=== PATIENT | male | born 1940 | race Caucasian/White ===

== ENCOUNTER 2019-06-16 10:53 | Observation (INO) ==
--- NOTE | 2019-06-02 13:47 | PAT Medication Instructions ---
Medication Instructions Date of Service June 02, 2019 Home Medications ascorbic acid (vitamin C) 500 mg PO QAM calcium carbonate-vitamin D3 [Calcium 600 + D(3)] 1 cap PO QPM cholecalciferol (vitamin D3) [Vitamin D3] 1,000 unit PO QAM fluocinonide 1 applic TOPICAL BID PRN gabapentin 100 - 300 mg PO TID glucosam sol [id number]-qvgdebmab-[id number]-Mn 1 cap PO BID multivitamin 1 tab PO QPM naproxen sodium [Aleve] 440 mg PO BID PRN phenobarbital 60 mg PO BID pravastatin [Pravachol] 20 mg PO QPM prednisone 5 mg PO QAM tiotropium bromide [Spiriva with HandiHaler] 1 cap INHALATION QAM tramadol [Ultram] 50 mg PO Q6H PRN valacyclovir 1,000 mg PO UD PRN vitamin E 400 unit PO QAM Continue as directed valacyclovir 1,000 mg PO UD PRN (if needed) prednisone 5 mg PO QAM STOP taking 2 weeks before surgery (or as soon as possible if surgery is within 2 weeks) glucosam sol keh-rvgvzywue-P-Mn 1 cap PO BID vitamin E 400 unit PO QAM STOP taking 24 hours before surgery fluocinonide 1 applic TOPICAL BID PRN DO NOT take the morning of surgery ascorbic acid (vitamin C) 500 mg PO QAM cholecalciferol (vitamin D3) [Vitamin D3] 1,000 unit PO QAM Take morning of surgery With a small sip of water, OTHERWISE NOTHING TO EAT OR DRINK AFTER MIDNIGHT: gabapentin 100 - 300 mg PO TID phenobarbital 60 mg PO BID tiotropium bromide [Spiriva with HandiHaler] 1 cap INHALATION QAM tramadol [Ultram] 50 mg PO Q6H PRN (okay to take up to 4 hours prior to surgery if needed) Take evening before surgery gabapentin 100 - 300 mg PO TID phenobarbital 60 mg PO BID pravastatin [Pravachol] 20 mg PO QPM tramadol [Ultram] 50 mg PO Q6H PRN (if needed) multivitamin 1 tab PO QPM Other Notes If you have any questions please call us at [phone] or [phone] or [phone] or [phone]
--- NOTE | 2019-06-02 14:27 | Anesthesiology Consultation ---
Date of Service June 02, 2019 Assessment & Plan (1) Encounter for pre-operative examination: Chart Review Chart Review: Acceptable Risk for Surgery and Patient seen in Pre Admission Testing Teaching & Discussion Instructed NPO after midnight before surgery, except medications with 15 cc of water. Medication instructions provided according to the PAT guidelines. History Surgery Operation Date: 06/16/19 12:25 Proposed Procedures p L4-L5 Laminectomy - Ney Walsh DO Height/Weight Height: 6 ft Weight: 84.9 kg Allergies Allergy/AdvReac Type Severity Reaction Status Date / Time lamotrigine Allergy Unknown pruritus, Verified 06/02/19 13:48 rash oxycodone AdvReac Unknown "strange" Verified 06/02/19 13:48 feeling Medications Home Medications Medication Instructions Recorded Confirmed Last Taken ascorbic acid (vitamin C) 500 mg PO QAM 05/31/19 05/31/19 Unknown calcium carbonate-vitamin D3 1 cap PO QPM 05/31/19 05/31/19 Unknown [Calcium 600 + D(3)] cholecalciferol (vitamin D3) 1,000 unit PO QAM 05/31/19 05/31/19 Unknown [Vitamin D3] fluocinonide 1 applic TOPICAL BID PRN 05/31/19 05/31/19 Unknown gabapentin 100 - 300 mg PO TID 05/31/19 05/31/19 Unknown glucosam sol dzr-gsbicpwsm-H-Mn 1 cap PO BID 05/31/19 05/31/19 Unknown multivitamin 1 tab PO QPM 05/31/19 05/31/19 Unknown naproxen sodium [Aleve] 440 mg PO BID PRN 05/31/19 05/31/19 Unknown phenobarbital 60 mg PO BID 05/31/19 05/31/19 Unknown pravastatin [Pravachol] 20 mg PO QPM 05/31/19 05/31/19 Unknown prednisone 5 mg PO QAM 05/31/19 05/31/19 Unknown tiotropium bromide [Spiriva with 1 cap INHALATION QAM 05/31/19 05/31/19 Unknown HandiHaler] tramadol [Ultram] 50 mg PO Q6H PRN 05/31/19 05/31/19 Unknown valacyclovir 1,000 mg PO UD PRN 05/31/19 05/31/19 Unknown vitamin E 400 unit PO QAM 05/31/19 05/31/19 Unknown Past Medical History Medical History Arthritis BPH (benign prostatic hyperplasia) HX Cardiac murmur 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 Seizure HX "DISORIENTATION TYPE"-SINGLE EPISODE 7-8 YRS AGO-ON DAILY PHENOBARBITOL Sleep apnea CPAP Spinal stenosis RIGHT LEG PAIN Exercise / Class Metabolic Activity II 4-5 Yardwork/Stairs/Walk up hill (DOES 1 FOS DAILY, NO CP OR SOB) Past Family History Family History Mother Family hx of colon cancer Past Surgical History Surgical History History of colonoscopy History of eye surgery TEAR DUCT SURGERY RIGHT History of hand surgery LEFT LIGAMENT Hx of transurethral resection of prostate Past Anesthesia History No Hx of Anesthesia Complications and No Family Hx of Anesthesia Complications S/P TURP 2013 [facility] [place]: MAC 4, ETT 7.5, GRADE VIEW III. SMOOTH IV INDUCTION/ATRAUMATIC INTUBATION WITH SMALL ABRASION TO L UPPER LIP. History of PONV No Hx of PONV and Hx of Motion Sickness Social History Smoking Status: Former smoker Do You Dip or Chew Tobacco: No Smoking End Date: QUIT 30 YRS AGO Hx Alcohol Use: Yes Alcohol type: beer, wine and hard liquor alcohol intake frequency: a few times a week Hx Substance Use: No Review of Systems Pt denies any recent chest pain, shortness of breath, palpitations, cough, fever or URI. +right leg pain Physical Exam Vital Signs BP: 152/69 (pt reports usually 120's systolic, is in some pain today) P: 70bpm SPO2: 94% RA T: 98.4 F R: 16 ENMT Mouth: no dental restorations, no chipped teeth and no loose teeth Thyromental Distance: > or= 3.5 Finger Breadths (3.5) Mallampati Class: I Neck normal visual inspection; neck extension not limited Respiratory normal respiratory effort Auscultation: lungs clear to auscultation bilaterally and + bronchovesicular breath sounds (B/L) Cardiovascular Rate/Rhythm: regular rate and regular rhythm Heart Sounds: no murmur Vessels: no carotid bruit Extremities: no edema Testing Laboratory Results 06/02/19 15:13 06/02/19 15:13 PT 10.2 Seconds (9.0-12.0) 06/02/19 15:13 INR 1.0 (0.9-1.1) 06/02/19 15:13 APTT 28.8 Seconds (21.0-31.0) 06/02/19 15:13 Electrocardiogram Date: 06/02/19 Findings: + NSR @ (64) Echocardiogram Date: 03/10/19 EF: 60-64% Qualitative LV ejection fraction is normal. Grade 1 diastolic dysfunction of left ventricle. Mild aortic valve sclerosis is present with mild to moderate aortic regurgitation. Compared to prior study of 03/01/2018, there is no significant change.
[2019-06-02 16:25] LABS: Basophils # (auto) 0.02 K/uL (0-0.2); Basophils % (auto) 0.3 %; Eosinophils # (auto) 0.23 K/uL (0-0.5); Eosinophils % (auto) 2.9 %; Hematocrit (blood only) 41.7 % (42-52); Hemoglobin 14.2 g/dL (14.0-18.0); Immature Granulocytes # (auto) 0.03 K/uL (0.00-0.02); Immature Granulocytes % (auto) 0.4 %; Lymphocytes # (auto) 1.84 K/uL (1.2-3.4); Lymphocytes % (auto) 23.2 %; Mean Corpuscular Hgb Conc 34.1 g/dL (32-36); Mean Corpuscular Volume 86.7 fL (80-100); Mean Platelet Volume 9.1 fL (7.4-10.4); Monocytes % (auto) 8.8 %; Neutrophils % (auto) 64.4 %; Platelet Count 280 K/uL (130-400); RDW Coefficient of Variation 13.8 % (11.5-14.5); RDW Standard Deviation 43.7 fL (36.4-46.3); Red Blood Count 4.81 M/uL (4.7-6.1); White Blood Count 7.92 K/uL (4.8-10.8)
[2019-06-02 16:36] LABS: Partial Thromboplastin Ratio 1.1; Partial Thromboplastin Time 28.8 Seconds (21.0-31.0); Prothrombin Time 10.2 Seconds (9.0-12.0)
[2019-06-02 17:48] LABS: BUN Creatinine Ratio 18.3 (10-20); Calcium 8.4 mg/dl (8.5-10.1); Creatinine Clr Calc Pharmacy 70.3 ml/min; Est GFR (African American) 90.7; Est GFR (Non-African American) 78.3; Potassium 4.4 mmol/L (3.5-5.1)
--- NOTE | 2019-06-15 14:17 | History and Physical Report ---
DATE OF ADMISSION: 06/16/2019 CHIEF COMPLAINT: Lower extremity difficulty, weakness and legs giving out. He has a disc herniation at L4-L5, it is in lateral recess. It knocks off the 4th and 5th nerve root on right hand side. Ongoing now for 1 year, worsening over time. He is somewhat ambulatory impaired. PAST MEDICAL HISTORY: Significant for high cholesterol, asthma, seizure, polio. PAST SURGICAL HISTORY: Negative. ALLERGIES: Negative. SOCIAL HISTORY: Nonsmoker, non-ETOH user. REVIEW OF SYSTEMS: Denies any fevers, sweats, chills. Ears, nose, and throat negative. No chest pain, palpitations. No asthma, wheezing, shortness of breath. No nausea or vomiting. He admits to numbness, tingling, associated weakness. MEDICATIONS: Lisinopril, [place], Fosamax, Deltasone, Pravachol, Valtrex, glucosamine, ProAir, multiple vitamins. OBJECTIVE: GENERAL: He is alert, oriented. VITAL SIGNS: Blood pressure 149/62, pulse regular at 80 beats per minute. He is 6 feet, 180 pounds. HEENT: Normocephalic. Pupils react to light and accommodation. CARDIAC: Normal S1, S2. No murmurs, clicks, gallops. LUNGS: Clear. ABDOMEN: Soft, nontender. Neurological examination demonstrates reflex changes in knee, weakness of quad strength, loss of sensation and muscle atrophy. IMPRESSION: Disc herniation with neurological deficit, progressive L4-L5. PLAN: Includes a laminectomy L4-L5 lumbar spine.
[~2019-06-16 10:53] MED LIST: CEFAZOLIN 2000MG 2,000 MG/15 ML SYR IV SCH; LR 15ML/HR IV SCH; SODIUM CHLORIDE 0.9% 1,000 ML IV SCH
[2019-06-16] MEDS ORDERED: ONDANSETRON INJ 2 MG/ML 2 ML VIAL ONE (12:51)
[2019-06-16] MEDS ORDERED: PROPOFOL IV EMULSION 10 MG/ML 20 ML VIAL IV ONE (12:51)
[2019-06-16] MEDS ORDERED: LIDOCAINE HCL 2% 2 ML VIAL/AMP(20MG/ML) INFIL ONE ×2 (12:51→15:22)
[2019-06-16] MEDS ORDERED: fentaNYL citrate 100 MCG/2 ML VIAL ONE (12:52)
[2019-06-16] MEDS ORDERED: VANCOMYCIN HCL 1000MG/20ML VIAL ONE (13:53)
[2019-06-16] MEDS ORDERED: BACITRACIN INJ 50,000 UNIT VIAL ONE (13:54)
[2019-06-16] MEDS ORDERED: BUPIVACAINE/EPINEPHRINE 0.5% MPF 1:200,000 30 ML VIAL ONE (13:54)
[2019-06-16] MEDS ORDERED: THROMBIN FOR SOLN 20000 UNIT KIT ONE (13:54)
[2019-06-16] MEDS ORDERED: GELATIN SPONGE SZ 100 ONE (13:54)
--- NOTE | 2019-06-16 14:00 | History & Physical Bridge Note ---
Date of Service June 16, 2019 History & Physical Bridge Note I have examined the patient, reviewed the History & Physical and in the interval since the performance of the History & Physical I have noted the following changes of clinical significance: no changes noted
[2019-06-16] MEDS ORDERED: ePHEDrine sulfate 50 MG/ML SYR ONE (14:58)
[2019-06-16] MEDS ORDERED: ePHEDrine sulfate 50 MG/ML AMP IV PRN (15:07)
[2019-06-16] MEDS ORDERED: FLUMAZENIL 0.1 MG/1 ML 10 ML VIAL IV PRN (15:07)
[2019-06-16] MEDS ORDERED: LABETALOL HCL IV 5 MG/ML 20ML IV PRN (15:07)
[2019-06-16] MEDS ORDERED: NALOXONE HCL 0.4 MG/1 ML VIAL/CARP IV PRN (15:07)
[2019-06-16] MEDS ORDERED: PROMETHAZINE HCL 12.5 MG in SODIUM CHLORIDE 0.9% 50 ML IV PRN (15:07)
[2019-06-16] MEDS ORDERED: ATROPINE SULFATE 0.1 MG/ML 10ML SYR IV PRN (15:07)
[2019-06-16] MEDS ORDERED: ONDANSETRON INJ 2 MG/ML 2 ML VIAL IV PRN ×2 (15:07→18:17)
[2019-06-16] MEDS ORDERED: ROCURONIUM BROMIDE 10 MG/ML 5 ML VIAL ONE (15:22)
[2019-06-16] MEDS ORDERED: GLYCOPYRROLATE 0.2 MG/ML VIAL ONE (15:22)
[2019-06-16] MEDS ORDERED: NEOSTIGMINE METHYLSULFATE 5 MG/5 ML SYR ONE (15:22)
--- NOTE | 2019-06-16 16:07 | Fluoroscopy Report ---
FL spine 1V any level CLINICAL HISTORY: 78 years-old Male presenting with L4-L5 LAMI. TECHNIQUE: 2 fluoroscopic image(s) recorded as part of an intraoperative procedure. COMPARISON: MR from 04/27/2019. FINDINGS/IMPRESSION: Instrumentation and surgical sponges project over the lower lumbar region. Surgical instrumentation i ntroduced into and intervertebral disc space. Please see surgical report for further details. Fluoroscopy dosage (mGy): 8.02. Fluoroscopy time: 12.2 seconds. Number or time of high level fluoroscopy (HLF), digital spot, or digital subtraction images: 0. Electronically signed by: Roberto Goodrich M.D. 06/16/2019 4:06 PM
--- NOTE | 2019-06-16 16:19 | Post Operative Brief Note ---
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
[2019-06-16] MEDS: HYDROmorphone INJ 1 MG/ML SYRINGE IV PRN ×8 (16:32→17:15)
--- NOTE | 2019-06-16 17:25 | Anesthesiology Progress Note ---
Date of Service June 16, 2019 Anesthesia Post Procedure Vital Signs Vital Signs: Temp Pulse Pulse Resp BP Pulse Ox 06/16/19 17:20 67 21 132/58 L 99 06/16/19 17:10 74 15 128/55 L 98 06/16/19 17:00 76 23 139/59 L 96 06/16/19 16:50 81 16 127/59 L 96 06/16/19 16:40 97 H 17 122/74 94 06/16/19 16:30 108 H 17 138/63 94 06/16/19 16:23 97.2 F L 116 H 17 142/62 H 97 06/16/19 11:44 98.6 F 69 18 151/87 H 96 Pain Intensity Medial Back: Pain Intensity: 6 Transfer of Care Handoff Completed per policy Notes Mental Status: alert / awake / arousable and participated in evaluation Patient Amnestic to Procedure: Yes Nausea / Vomiting: adequately controlled Pain: adequately controlled Airway Patency, RR, SpO2: stable & adequate BP & HR: stable & adequate Hydration State: stable & adequate Anesthetic Complications: no major complications apparent and Pt Satisfied with anesthetic care
[2019-06-16] MEDS ORDERED: HYDROmorphone INJ 0.5 MG/0.5 ML SYR IV PRN (18:17)
[2019-06-16] MEDS ORDERED: HYDROmorphone INJ 1 MG/ML SYRINGE IV PRN (18:17)
[2019-06-16] MEDS ORDERED: VALACYCLOVIR HCL 500 MG TABLET PO PRN (18:17)
[2019-06-16] MEDS ORDERED: MAGNESIUM HYDROXIDE SUSP 30 ML UDC PO PRN (18:17)
[2019-06-16] MEDS ORDERED: OXYCODONE HCL IR 5 MG TAB (IMMEDIATE RELEASE) PO PRN (18:17)
[2019-06-16] MEDS ORDERED: FLUOCINONIDE 0.05% CR 15 GM TUBE EXT PRN (18:17)
[2019-06-16] MEDS ORDERED: GABAPENTIN 100 MG CAP PO SCH (21:00)
[2019-06-16] MEDS: CEFAZOLIN 2000MG 2,000 MG/15 ML SYR IV SCH (21:09)
[2019-06-16] MEDS: PHENobarbital 15 MG TAB PO SCH (21:10)
[2019-06-16] MEDS: DOCUSATE SODIUM 100 MG CAP PO SCH (21:10)
[2019-06-16] MEDS: GABAPENTIN 300 MG CAP PO SCH (21:10)
[2019-06-17] MEDS: SODIUM CHLORIDE 0.9% 1000ML 1,000 ML IV SCH ×2 (00:33→05:32)
[2019-06-17] MEDS: ACETAMINOPHEN 1,000 MG/100 ML VIAL IV PRN ×2 (00:35→21:47)
[2019-06-17] MEDS: OXYCODONE HCL IR 5 MG TAB (IMMEDIATE RELEASE) PO PRN ×4 (03:30→20:20)
[2019-06-17] MEDS: CEFAZOLIN 2000MG 2,000 MG/15 ML SYR IV SCH ×2 (05:32→13:46)
--- NOTE | 2019-06-17 07:59 | Operative Report ---
DATE OF OPERATION: 06/16/2019 PREOPERATIVE DIAGNOSIS: Far lateral disc herniation, L4-L5 lumbar spine. POSTOPERATIVE DIAGNOSIS: Far lateral disc herniation, L4-L5 lumbar spine. PROCEDURE: Include a laminectomy, right-sided L4-L5, foraminotomy of L5 and L4 nerve roots along with a discectomy at L4-L5 and retrieval of free fragment L4-L5. SURGEON: Ney aWlsh D.O. MOCK UP MAKER: Josh Limon PA-C ANESTHESIA: General. COMPLICATIONS: Zero. BLOOD LOSS: 100. DESCRIPTION OF PROCEDURE: The patient was seen and identified in the preoperative holding area. A formal bridge note provided as well. Brought back to the operating room. General intubated and anesthetic provided to the patient. Placed prone, scrubbed, prepped and draped sterile. I made a skin incision, marked this with C-arm guidance. We cut down on the L4-L5 interval. We did an upgoing laminectomy at L4 down at L5. I was very careful. Meticulous dissection was difficult. There was significant amount of stenosis. I wanted to be as less disruptive as I could and accomplished the task. I meticulously dissected and completed the foraminotomy L5. I was eventually able to find the L4-L5 disc. I retracted the dura medially. I was able to incise the disc with #15 scalpel blade, used pituitary to do a discectomy, in addition localized the area. I then went up and worked underneath the nerve root at L4-L5, so will be the 4th nerve root exited. I worked hard underneath and above it to try to get free from compression. I was able to find a small glimmer disc material and I was able to retrieve this and a moderate disc protrusion was removed. I felt it was compatible and consistent with the MRI findings. I accentuated the foraminotomy of the nerve root and at the L5 nerve root. I felt both were free. There was no significant pressure that I could palpate or visualize. We began our closure. We irrigated thoroughly, closed fascia over Gelfoam and over vancomycin powder and a Hemovac drain. Then, 2-0 Vicryl and 3-0 nylon on the skin. The drain was activated. Dressing applied. The patient returned safely to recovery room in satisfactory and stable. No apparent intraoperative complications. Sponge and needle count correct and no implants needed. I attest to the content of the Intraoperative Record and any orders documented therein. Any exception s are noted below.
--- NOTE | 2019-06-17 08:14 | Anesthesiology Progress Note ---
Date of Service June 17, 2019 Anesthesia Post Procedure Vital Signs Vital Signs: Temp Pulse Pulse Resp BP Pulse Ox 06/17/19 07:36 36.7 C 73 16 114/55 L 94 06/17/19 03:48 36.5 C 66 18 120/58 L 97 06/16/19 23:36 36.5 C 70 18 109/55 L 95 06/16/19 20:51 36.3 C L 78 16 108/57 L 99 06/16/19 19:58 36.4 C L 71 16 121/65 96 06/16/19 18:55 36.5 C 77 16 118/62 97 06/16/19 18:51 36.5 C 68 98 H 121/64 97 06/16/19 18:26 36.4 C L 67 16 118/63 97 06/16/19 17:50 36.4 C L 67 16 127/56 L 99 06/16/19 17:35 36.2 C L 69 18 123/55 L 99 06/16/19 17:20 67 21 132/58 L 99 06/16/19 17:10 74 15 128/55 L 98 06/16/19 17:00 76 23 139/59 L 96 06/16/19 16:50 81 16 127/59 L 96 06/16/19 16:40 97 H 17 122/74 94 06/16/19 16:30 108 H 17 138/63 94 06/16/19 16:23 36.2 C L 116 H 17 142/62 H 97 06/16/19 11:44 37 C 69 18 151/87 H 96 Pain Intensity Medial Back: Pain Intensity: 4 Notes Mental Status: alert / awake / arousable Patient Amnestic to Procedure: Yes Nausea / Vomiting: adequately controlled Pain: adequately controlled Airway Patency, RR, SpO2: stable & adequate BP & HR: stable & adequate Hydration State: stable & adequate Anesthetic Complications: no major complications apparent and Pt Satisfied with anesthetic care
[2019-06-17] MEDS: predniSONE 5 MG TAB PO SCH (09:15)
[2019-06-17] MEDS: GABAPENTIN 100 MG CAP PO SCH (09:15)
[2019-06-17] MEDS: PHENobarbital 15 MG TAB PO SCH ×2 (09:16→20:21)
[2019-06-17] MEDS: TIOTROPIUM BROMIDE 5 PUFF/90 MCG INH INH SCH (09:17)
[2019-06-17] MEDS: DOCUSATE SODIUM 100 MG CAP PO SCH ×2 (09:19→20:21)
[2019-06-17] MEDS ORDERED: GABAPENTIN 100 MG CAP PO SCH (16:00)
[2019-06-17] MEDS: GABAPENTIN 300 MG CAP PO SCH (20:21)
[2019-06-17] MEDS ORDERED: PRAVASTATIN SOD 20 MG TAB PO SCH (21:00)
[2019-06-18] MEDS: OXYCODONE HCL IR 5 MG TAB (IMMEDIATE RELEASE) PO PRN ×3 (01:51→10:23)
[2019-06-18] MEDS ORDERED: BISACODYL 5 MG TABEC PO PRN (06:00)
[2019-06-18] MEDS: PHENobarbital 15 MG TAB PO SCH (09:02)
[2019-06-18] MEDS: GABAPENTIN 100 MG CAP PO SCH (09:02)
[2019-06-18] MEDS: DOCUSATE SODIUM 100 MG CAP PO SCH (09:02)
[2019-06-18] MEDS: TIOTROPIUM BROMIDE 5 PUFF/90 MCG INH INH SCH (09:03)
[2019-06-18] MEDS: predniSONE 5 MG TAB PO SCH (09:03)
--- NOTE | 2019-06-18 23:16 | Discharge Summary ---
HOSPITAL COURSE: He is alert and oriented, moderate complaints of pain. Pain free at rest. Alert, oriented, no chest pain, shortness of breath. He is now out about 40 hours from lumbar spine surgery, laminectomy and discectomy for far lateral disc herniation, fairly rigorous dissection. He will be discharged to rehab facility today. His medication is in chart. He will continue all his meds. His dressing should be changed about every 72 hours. His sutures will be removed in my office in about 12 days. Careful with bending, stooping, lifting, walk with a walker, be careful with walking, does not need to overdo it and again, we will see him back in the office in about 12 days.
== END 2019-06-18 11:02 ==
LOC: 3E 10:53 → ASU 10:53
DX: J45.909 Unspecified asthma, uncomplicated; M51.26 Other intervertebral disc displacement, lumbar region; J44.9 Chronic obstructive pulmonary disease, unspecified; E78.5 Hyperlipidemia, unspecified; N40.0 Benign prostatic hyperplasia without lower urinary tract symptoms; G47.33 Obstructive sleep apnea (adult) (pediatric)

== ENCOUNTER 2022-06-22 21:06 | Observation (INO) ==
[2022-06-22] MEDS ORDERED: ALBUT/IPRATROP 3MG/0.5MG NEB 3 ML VIAL NEB ONE (21:40)
--- NOTE | 2022-06-22 21:45 | Emergency Department Note ---
Impression & Plan COPD exacerbation, Breath shortness ED Provider Note NAME: ANDREA ARCHULETA AGE: 82 SEX: M : 1940 ARRIVES VIA: Walk-In INFORMANT: Patient ED PROVIDER(S): Ayan Vigil DO CHIEF COMPLAINT: shortness of breath HPI: Patient is an 82-year-old male who presents to the ER for shortness of breath. He notes his symptoms started late last night going into the morning around 3 AM with a cough. He notes he had a cough for about a month but recently the past 24 to 48 hours it has increased. He is also had an increasing white sputum. He was seen here this morning as he has never had a COPD exacerbation before. He no longer smokes. He was given steroids and neb treatments and discharged with an inhaler. He denies any chest pain. No belly pain. No other exacerbating or remitting factors. ROS: See above HPI for pertinent positives & negatives. A total of 10 systems reviewed and were otherwise negative. PAST MEDICAL HISTORY:See Below PAST SURGICAL HISTORY:See Below FAMILY HISTORY:See Below SOCIAL HISTORY:See Below HOME MEDICATIONS:See Below ALLERGIES:See Below VITALS:See Below PHYSICAL EXAMINATION: GENERAL: Sitting up in bed, alert, dyspneic with conversation EYE EXAM: normal conjunctiva. OROPHARYNX: Dry mucous membrane NECK: supple, no nuchal rigidity, no adenopathy, non-tender LUNGS: diffuse wheezing bilaterally. Normal chest wall mechanics HEART: no murmurs, S1 normal and S2 normal ABDOMEN: abdomen soft, non-tender, normo-active bowel sounds, no masses, no rebound or guarding. UPPER EXTREMITIES: upper extremities are grossly normal. LOWER EXTREMITIES: No pitting edema. Calf cervical bilateral NEURO EXAM: Normal sensorium, cranial nerves II-XII grossly intact, normal speech, no gross weakness of arms, no gross weakness of legs. MEDICAL DECISION MAKING: Patient is an 82-year-old male who presents ER for above-stated complaint. IV was established blood work was obtained. He has a history of emphysema but has never had any exacerbations. He was seen and evaluated this morning had blood work drawn including a CBC and BMP which was fairly unremarkable. He returns for worsening of his symptoms today. He was given the treatments and steroids on his recent visit and however to go home with. Since going home he almost passed out as became simply short of breath and his brought him back in. D-dimer was obtained as well as a repeat troponin which were unremarkable. CT angio of the chest showed no PEs but some parabronchial thickening consistent with bronchitis. Patient was ordered Rocephin and azithromycin. He was given additional dose steroids. He was given an hour-long treatment of the DuoNeb and an hour-long treatment of albuterol. He still had persistent wheezing but was improved. Discussed with the hospitalist Dr. Nicolas Le for further evaluation. Triage Nursing notes reviewed. Limited review of prior medical records performed Vital Signs: reviewed and remarkable for no significant abnormalities Differential diagnosis: Differential diagnoses includes but is not limited to pneumonia, bronchitis, COPD/Asthma exacerbation, pneumothorax, pulmonary embolism, congestive heart failure, acute coronary syndrome ER treatment provided: See below Diagnostics interpreted by me: ECG: Sinus rhythm rate 86 Left axis No PVCs QTC 449 Septal Q waves Cardiac Monitoring: An order was placed for continuous cardiac monitoring. The monitor shows a rate of 108 with sinus rhythm. Laboratory studies: As stated above and show below. Imaging studies: CT angio of the chest as described above Consultation(s): none Procedures: none Critical Care: None Past Med/Surg History Medical History (Updated 06/23/22 @ 01:05 by Ayan Vigil DO) Arthritis BPH (benign prostatic hyperplasia) HX Cardiac murmur 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 Seizure HX "DISORIENTATION TYPE"-SINGLE EPISODE 7-8 YRS AGO-ON DAILY PHENOBARBITOL Sleep apnea CPAP Spinal stenosis RIGHT LEG PAIN Surgical History History of colonoscopy History of eye surgery TEAR DUCT SURGERY RIGHT History of hand surgery LEFT LIGAMENT Hx of transurethral resection of prostate Family History Mother Family hx of colon cancer Social History Smoking Status: Former smoker Second Hand Exposure: No; Hx Alcohol Use: Yes Alcohol type: beer, wine and hard liquor Hx Substance Use: No Preferred Language: [place] Islander Communication Ability: Effective Employee'S Representative Required: No Beliefs That Will Affect Care: None Current Living Situation: Alone Feels Safe at Home: Yes Assistive Devices: Walker Allergies Allergies Allergy/AdvReac Type Severity Reaction Status Date / Time lamotrigine Allergy Unknown pruritus, Verified 06/23/22 00:26 rash oxycodone AdvReac Unknown "strange" Verified 06/23/22 00:26 feeling Home Meds Home Medications Medication Instructions Recorded Confirmed ascorbic acid (vitamin C) 500 mg 500 mg PO QAM 05/31/19 06/23/22 capsule calcium carbonate 600 mg-vitamin 1 cap PO QPM 05/31/19 06/23/22 D3 5 mcg (200 unit) capsule (Calcium 600 + D(3)) fluocinonide 0.05 % topical cream 1 applic topical BID PRN Rash 05/31/19 06/23/22 multivitamin 1 tab PO QPM 05/31/19 06/23/22 naproxen sodium 220 mg capsule 440 mg PO BID PRN Pain 05/31/19 06/23/22 (Aleve) phenobarbital 60 mg tablet 60 mg PO BID 05/31/19 06/23/22 tiotropium bromide 18 mcg capsule 1 cap inhalation QAM 05/31/19 06/23/22 with inhalation device (Spiriva with HandiHaler) valacyclovir 1 gram tablet 1,000 mg PO UD PRN Cold Sores 05/31/19 06/23/22 alendronate 70 mg tablet 70 mg PO WK 06/23/22 06/23/22 glucosamine-chondroitin 500 mg-400 1 tab PO BID 06/23/22 06/23/22 mg tablet pravastatin 20 mg tablet 20 mg PO DAILY 06/23/22 06/23/22 prednisone 1 mg tablet 2 mg PO DAILY 06/23/22 06/23/22 Previous Rx's Medication Instructions Recorded doxycycline hyclate 100 mg capsule 100 mg PO BID 7 days #14 caps 06/22/22 prednisone 10 mg tablet 10 mg PO .complex #31 tabs 06/22/22 Results & Data (ED) Vital Signs Vital Signs - 24 hr 06/22/22 21:19 06/22/22 21:39 06/22/22 22:02 Temperature 36.8 C Temperature Source Temporal Artery Scan Pulse Rate 85 Pulse Rate [Apical] 92 H Pulse Rate from SpO2 Sensor Pulse Rhythm [Apical] Regular Pulse Strength [Apical] Normal Respiratory Rate 16 16 Respiratory Effort / Characteristics Non-Labored Spontaneous Non-Labored Respiratory Depth Normal Normal Respiratory Pattern Regular Blood Pressure 143/72 H Blood Pressure [Left Arm] 184/84 H Blood Pressure Mean 95 Blood Pressure Mean [Left Arm] 117 Blood Pressure Position Sitting Pulse Oximetry 98 97 97 Oxygen Delivery Method Room Air Room Air Room Air Sepsis Recent Fever Within 48 Hours No Sepsis New/Unexplained Change in Mental Status N/A Sepsis Action Taken by Nursing No Action Required 06/22/22 22:02 06/22/22 23:00 06/22/22 23:50 Temperature Temperature Source Pulse Rate 110 H Pulse Rate [Apical] 104 H Pulse Rate from SpO2 Sensor Pulse Rhythm [Apical] Pulse Strength [Apical] Respiratory Rate 19 19 Respiratory Effort / Characteristics Non-Labored Spontaneous Respiratory Depth Respiratory Pattern Blood Pressure 160/70 H Blood Pressure [Left Arm] Blood Pressure Mean 100 Blood Pressure Mean [Left Arm] Blood Pressure Position Pulse Oximetry 97 95 92 Oxygen Delivery Method Room Air Room Air Room Air Sepsis Recent Fever Within 48 Hours Sepsis New/Unexplained Change in Mental Status Sepsis Action Taken by Nursing 06/23/22 00:00 Temperature Temperature Source Pulse Rate 105 H Pulse Rate [Apical] Pulse Rate from SpO2 Sensor 100 H Pulse Rhythm [Apical] Pulse Strength [Apical] Respiratory Rate 21 Respiratory Effort / Characteristics Respiratory Depth Respiratory Pattern Blood Pressure 144/75 H Blood Pressure [Left Arm] Blood Pressure Mean 98 Blood Pressure Mean [Left Arm] Blood Pressure Position Pulse Oximetry 96 Oxygen Delivery Method Nebulizer Sepsis Recent Fever Within 48 Hours Sepsis New/Unexplained Change in Mental Status Sepsis Action Taken by Nursing Laboratory Data Lab Results 06/22/22 06/22/22 Range/Units 21:53 21:53 D-Dimer 610 H* (0-500) ug/L FEU Troponin I High Sens 4.7 (0-20) pg/ml Administered Medications Doxycycline Hyclate 100 mg/ (Dextrose) 110 mls @ 50 mls/hr IV NOW STA Stop: 06/23/22 02:58 Last Admin: 06/23/22 01:01 Dose: 50 mls/hr Documented By: KMF Discontinued Medications Albuterol (Albut/Ipratrop 3mg/0.5mg Neb 3 Ml Vial) 12 ml NEB ONE ONE; Protocol Stop: 06/22/22 21:41 Last Admin: 06/22/22 21:59 Dose: 12 ml Documented By: OAM Albuterol (Albuterol 0.083% Nebu Soln 3 Ml Vial) 10 mg NEB NOW STA; Protocol Stop: 06/22/22 23:37 Last Admin: 06/22/22 23:49 Dose: 10 mg Documented By: LANCE Ioversol (Optiray 300 500ml) 116 ml IV ONCE ONE Stop: 06/22/22 23:16 Last Admin: 06/22/22 23:16 Dose: 116 ml Documented By: MARY Methylprednisolone (Methylprednisolone 40 Mg/Ml Vial) 40 mg IV NOW STA Stop: 06/22/22 23:37 Last Admin: 06/23/22 00:00 Dose: 40 mg Documented By: NATALYA Phenobarbital (Phenobarbital 30 Mg Tab) 60 mg PO NOW STA Stop: 06/23/22 00:31 Last Admin: 06/23/22 00:59 Dose: 60 mg Documented By: NATALYA Potassium Chloride (Potassium Chloride Crtab 20 Meq Tabcr) 40 meq PO NOW STA Stop: 06/23/22 00:02 Last Admin: 06/23/22 00:58 Dose: 40 meq Documented By: NATALYA Discharge Plan Visit Data Chief Complaint: Shortness of Breath/Dyspnea Stated Complaint: HERE EARLIER, SYMPTOMS WORSE sob ED Provider: Ayan Vigil Discharge Problem: COPD exacerbation, Breath shortness Forms Stand Alone Forms: [facility] Prescriptions Prescriptions: No Action multivitamin Tablet 1 tab PO QPM phenobarbital 60 mg Tablet 60 mg PO BID naproxen sodium [Aleve] 220 mg Capsule 440 mg PO BID PRN (Reason: Pain) ascorbic acid (vitamin C) 500 mg Capsule 500 mg PO QAM Spiriva with HandiHaler 18 mcg Capsule, W/Inhalation Device 1 cap INHALATION QAM valacyclovir 1 gram Tablet 1,000 mg PO UD PRN (Reason: Cold Sores) Calcium 600 + D(3) 600 mg calcium- 200 unit Capsule 1 cap PO QPM fluocinonide 0.05 % Cream 1 applic TOPICAL BID PRN (Reason: Rash) prednisone 10 mg tablet 10 mg PO .complex Qty: 31 0RF Rx Instructions: 06/22/22 : Prednisone 40 mg for 4 days, 30 mg for 3 days, 20 mg for 2 days and 10 mg for 2 days. doxycycline hyclate 100 mg capsule 100 mg PO BID 7 Days Qty: 14 0RF glucosamine-chondroitin 500-400 mg Tablet 1 tab PO BID pravastatin 20 mg tablet 20 mg PO DAILY prednisone 1 mg tablet 2 mg PO DAILY alendronate 70 mg Tablet 70 mg PO WK Rx Instructions: TAKE THIS MED EVERY THURSDAY Referrals Referrals: Travis Acuna MD [Primary Care Provider] -
[2022-06-22 22:24] LABS: D Dimer 610 ug/L FEU (0-500)
[2022-06-22] MEDS ORDERED: OPTIRAY 300 500mL IV ONE (23:15)
[2022-06-22] MEDS ORDERED: ALBUTEROL 0.083% NEBU SOLN 3 ML VIAL NEB STA (23:36)
[2022-06-23] MEDS ORDERED: POTASSIUM CHLORIDE CRTAB 20 MEQ TABCR PO STA (00:01)
--- NOTE | 2022-06-23 00:03 | History & Physical Report ---
Date of Service June 23, 2022 Assessment & Plan (1) COPD exacerbation: Plan: Complicated bronchitis, possible sepsis Failed outpatient treatment hx PSVT HTN, slightly elevated hyperlipidemia, on statin Rx hx moderate aortic regurgitation (TTE 2020) PMR on chronic steroid Rx seizure disorder, well controlled with phenobarbital past tobacco abuse Medical telemetry Doxycycline, nebs RTC Prednisone 40 mg daily for next 4 days then titrate down to patient's daily low- dose prednisone for PMR Pulmonary consult if without improvement DVT prophylaxis. Lovenox subcu Full code Patient daughter requesting updates providers. Miss Elinor Thompson, contact #[phone]. Text document was generated using [employer] voice recognition software. It may contain grammatical or spelling errors. Kindly contact undersigned for clarification of any documentation item in question. History of Present Illness Chief Complaint: Worsening shortness of breath Primary Care Provider: Travis Acuna MD History obtained from patient, family, and records. Medical history significant for COPD, RAJNI on CPAP, PSVT, hypertension, hyperlipidemia, moderate aortic regurgitation (TTE 2020), BPH, PMR on chronic steroid Rx, seizure disorder, past tobacco abuse. Last confinement 2018 under Orthopedics spine service for elective lumbar laminectomy. 2 nights ago, patient noted cough symptoms productive of junky white sputum after watching a football game. Some shortness of breath without chest pain. No fluid retention. No fever, no chills. Not sure about sick contacts. Patient received COVID-19 vaccination. Patient evaluated at the ER yesterday morning. Solu-Medrol and neb treatment given for COPD exacerbation. Patient discharged home on doxycycline and prednisone course prescription. Yesterday afternoon, patient noted worsening symptoms. Pharmacy closed on a Thursday. Patient returned to ER for evaluation. Medical History as above Surgical History : Skin biopsy, cystoscopy, back surgery, TURP Family History : Colon cancer, prostate cancer Personal/Social history : Past tobacco abuse, occasional EtOH intake, retired waste management engineer Allergies Allergy/AdvReac Type Severity Reaction Status Date / Time lamotrigine Allergy Unknown pruritus, Verified 06/23/22 00:26 rash oxycodone AdvReac Unknown "strange" Verified 06/23/22 00:26 feeling Home Medications Medication Instructions Recorded Confirmed Type ascorbic acid (vitamin C) 500 mg 500 mg PO QAM 05/31/19 06/23/22 History capsule calcium carbonate 600 mg-vitamin 1 cap PO QPM 05/31/19 06/23/22 History D3 5 mcg (200 unit) capsule (Calcium 600 + D(3)) fluocinonide 0.05 % topical cream 1 applic topical BID PRN Rash 05/31/19 06/23/22 History multivitamin 1 tab PO QPM 05/31/19 06/23/22 History naproxen sodium 220 mg capsule 440 mg PO BID PRN Pain 05/31/19 06/23/22 History (Aleve) phenobarbital 60 mg tablet 60 mg PO BID 05/31/19 06/23/22 History tiotropium bromide 18 mcg capsule 1 cap inhalation QAM 05/31/19 06/23/22 History with inhalation device (Spiriva with HandiHaler) valacyclovir 1 gram tablet 1,000 mg PO UD PRN Cold Sores 05/31/19 06/23/22 History doxycycline hyclate 100 mg capsule 100 mg PO BID 7 days #14 caps 06/22/22 06/23/22 Rx prednisone 10 mg tablet 10 mg PO .complex #31 tabs 06/22/22 06/23/22 Rx alendronate 70 mg tablet 70 mg PO WK 06/23/22 06/23/22 History glucosamine-chondroitin 500 mg-400 1 tab PO BID 06/23/22 06/23/22 History mg tablet pravastatin 20 mg tablet 20 mg PO DAILY 06/23/22 06/23/22 History prednisone 1 mg tablet 2 mg PO DAILY 06/23/22 06/23/22 History Past Med/Surg History Medical History (Updated 06/23/22 @ 01:05 by Ayan Vigil DO) Arthritis BPH (benign prostatic hyperplasia) HX Cardiac murmur 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 Seizure HX "DISORIENTATION TYPE"-SINGLE EPISODE 7-8 YRS AGO-ON DAILY PHENOBARBITOL Sleep apnea CPAP Spinal stenosis RIGHT LEG PAIN Surgical History History of colonoscopy History of eye surgery TEAR DUCT SURGERY RIGHT History of hand surgery LEFT LIGAMENT Hx of transurethral resection of prostate Family History Mother Family hx of colon cancer Social History Smoking Status: Former smoker Cigarettes Per Day: 1/2 Pack; Second Hand Exposure: Yes; Do You Dip or Chew Tobacco: No; Hx Alcohol Use: Yes Alcohol type: beer Hx Substance Use: No Preferred Language: Malagasy Communication Ability: Effective Building And Construction Manager Required: No Beliefs That Will Affect Care: None Current Living Situation: Alone Feels Safe at Home: Yes Assistive Devices: Walker Review of Systems Review of Systems: As per HPI, all other systems reviewed and negative Physical Exam Physical Exam: GENERAL: Slightly uncomfortable, slightly anxious, no respiratory distress, currently receiving breathing treatment SKIN: Normal color, warm HEENT: Bespectacled, pink palpebral conjunctivae, no ptosis, dry buccal mucosa NECK : Supple, no tenderness CHEST : Decreased breath sounds, diffuse expiratory wheezes, no tenderness HEART : Tachycardic, no obvious murmurs ABDOMEN: no distention, nontender EXTREMITIES : No LE swelling/tenderness, no other conspicuous deformities noted NEUROLOGIC : Coherent, no facial asymmetry, no other gross focality Results & Data Results & Data ([facility]) Vital Signs (Past 12 Hours) Vital Signs Temp Pulse Pulse Resp BP BP Pulse Ox 06/22/22 23:50 104 H 19 92 06/22/22 23:00 110 H 19 160/70 H 95 06/22/22 22:02 97 06/22/22 22:02 92 H 16 184/84 H 97 06/22/22 21:39 97 06/22/22 21:19 36.8 C 85 16 143/72 H 98 O2 Del Method 06/22/22 23:50 Room Air 06/22/22 23:00 Room Air 06/22/22 22:02 Room Air 06/22/22 22:02 Room Air 06/22/22 21:39 Room Air 06/22/22 21:19 Room Air Laboratory Results Laboratory Results D-Dimer 610 ug/L FEU (0-500) H* 06/22/22 21:53 Troponin I High Sens 4.7 pg/ml (0-20) 06/22/22 21:[address] chest initial read: No pulmonaryarteryfilling defects to suggest pulmonaryarterythrombosis. Studyis limited bypatient motion. Diffuse bilateral peribronchial thickening consistent with inflammation/bronchitiswith minimal peribronchial interstitial changes. No focal lobar pneumonia. Minimal emphysematous change including a left lower lobe lung cyst. OTHER FINDINGS: Compared to chest x-ray06/22/2022. No thoracic aortic aneurysmor dissection is present. Atherosclerotic vascular calcifications. Heart is mildlyenlarged. No evidence for right heart strain. No pericardial fluid or thickening. Punctate left lung calcification/granuloma. No pleural effusion or pneumothorax. No acute fracture is identified. Chronic severe wedge compression fracture of the T12 vertebral body with slight posterior retropulsion. Degenerative changes of the thoracic spine. Limited images of the upper abdomen are unremarkable EKG as per my interpretation :Rate 85, NSR, LAD, LAFB, septal infarct
[2022-06-23] MEDS ORDERED: PHENobarbitaL 30 MG TAB PO STA (00:30)
[2022-06-23] MEDS ORDERED: PROMETHAZINE HCL 6.25 MG in SODIUM CHLORIDE 0.9% 50 ML IV PRN (00:38)
[2022-06-23] MEDS ORDERED: LACTATED RINGER'S 1,000 ML IV ONE (00:38)
[2022-06-23] MEDS ORDERED: DOXYCYCLINE HYCLATE 100 MG in DEXTROSE 5% 100 ML IV STA (00:47)
[2022-06-23] MEDS ORDERED: AZITHROMYCIN 250 MG TAB PO ONE (01:05)
[2022-06-23] MEDS ORDERED: cefTRIAXone SODIUM 2,000 MG/70 ML BAG IV STA (01:05)
[2022-06-23] MEDS ORDERED: ACETAMINOPHEN 325 MG TAB PO PRN (04:24)
[2022-06-23] MEDS ORDERED: XOPENEX/ATROVENT 1.25mg/0.5MG NEB COMBO NEB SCH (06:00)
[2022-06-23] MEDS: IPRATROPIUM BROMIDE NEB SOLN 0.02% 2.5 ML VIAL INH SCH ×4 (07:09→23:56)
[2022-06-23] MEDS: LEVALBUTEROL 1.25MG/0.5ML NEB INH SCH ×4 (07:09→23:56)
[2022-06-23 07:38] LABS: Basophils # (auto) 0.04 K/uL (0-0.2); Basophils % (auto) 0.4 %; Eosinophils # (auto) 0.38 K/uL (0-0.50); Eosinophils % (auto) 4.2 %; Hemoglobin 13.6 g/dl (14.0-18.0); Immature Granulocytes # (auto) 0.04 K/uL (0.00-0.02); Immature Granulocytes % (auto) 0.4 %; Lymphocytes # (auto) 0.91 K/uL (1.2-3.4); Lymphocytes % (auto) 10.1 %; Mean Corpuscular Hemoglobin 28.6 pg (25.0-34.0); Mean Corpuscular Hgb Conc 32.4 g/dL (32.0-36.0); Mean Corpuscular Volume 88.2 fL (80.0-100.0); Mean Platelet Volume 8.8 fL (9.4-12.4); Monocytes # (auto) 0.61 K/uL (0.24-0.82); Monocytes % (auto) 6.8 %; Neutrophils # (auto) 7.01 K/uL (1.4-6.5); Neutrophils % (auto) 78.1 %; Platelet Count 244 K/uL (130-400); RDW Coefficient of Variation 14.3 % (11.5-14.5); RDW Standard Deviation 46.3 fL (36.4-46.3); Red Blood Count 4.76 M/uL (4.63-6.08); White Blood Count 8.99 K/ul (4.8-10.8)
--- NOTE | 2022-06-23 07:56 | CT Scan Report ---
CHEST CTA for PULMONARY ARTERIES CT DOSE: 458.34 mGy.cm HISTORY: Shortness of breath. TECHNIQUE: Multiaxial CT images of the chest were performed following the intravenous administration of contrast to evaluate the pulmonary arteries. Maximal intensity projection images were also obtaine d. A dose lowering technique was utilized adhering to the principles of ALARA. COMPARISON STUDY: None. FINDINGS: There is an old moderate to severe anterior wedge-shaped compression deformity at T12. The visualized liver and adrenal glands unremarkable. Small calcification at the splenic capsule. The thy roid gland enhances normally. Normal caliber esophagus. No pleural or pericardial effusions. The hear t is normal in size. No mediastinal lymphadenopathy. Normal caliber thoracic aorta with no evidence f or dissection. Respiratory motion artifact resulting in nondiagnostic evaluation of the bilateral low er lobe subsegmental pulmonary arteries. However, the remaining pulmonary arteries show no filling de fects to suggest a pulmonary embolus. Mild central peribronchial soft tissue thickening and a few pro minent bilateral hilar lymph nodes are noted. No pneumothorax. Mild emphysema. There are a few scatte red tree-in-bud nodular opacities within the lungs most pronounced within the left lung apex. There i s a calcified granuloma within the left lung apex. No acute fractures within the visualized osseous s tructures. Advanced degenerative changes within the right sternoclavicular joint. IMPRESSION: 1. No evidence for pulmonary embolus with limitations as described above. 2. Mild central peribronchial soft tissue thickening with prominent bilateral hilar lymph nodes. This suggests a mild bronchitis with reactive lymphadenopathy. 3. A few scattered tree-in-bud nodular opacities most pronounced within the left lung apex. This may represent a mild bronchiolitis. ACT 112: Negative or not required by law. Electronically signed by: Dion Alston M.D. 06/23/2022 7:55 AM
[2022-06-23 08:10] LABS: BUN Creatinine Ratio 16.7 (10-20); Calcium 9.1 mg/dl (8.5-10.1); Creatinine Clr Calc Pharmacy 77.4 ml/min; Est GFR (African American) 96.1 ml/min; Est GFR (Non-African American) 82.9 ml/min; Potassium 4.5 mmol/L (3.5-5.1)
[2022-06-23] MEDS ORDERED: TIOTROPIUM BROMIDE 5 PUFF/90 MCG INH INH SCH (09:00)
[2022-06-23] MEDS ORDERED: predniSONE 20 MG TAB PO SCH (09:00)
[2022-06-23] MEDS: ENOXAPARIN INJ 40 MG/0.4 ML SYR SQ SCH (09:31)
[2022-06-23] MEDS: PHENobarbitaL 30 MG TAB PO SCH ×2 (09:31→22:01)
[2022-06-23] MEDS: PRAVASTATIN SOD 20 MG TAB PO SCH (09:32)
[2022-06-23] MEDS: UMECLIDINIUM BROMIDE 62.5MCG/BLISTER 7 PUFFS/INHALER INH SCH (09:32)
[2022-06-23] MEDS ORDERED: ALBUT/IPRATROP 3MG/0.5MG NEB 3 ML VIAL NEB PRN (09:38)
[2022-06-23] MEDS ORDERED: LEVALBUTEROL HCL 1.25 MG/3 ML NEB NEB PRN (09:50)
[2022-06-23] MEDS ORDERED: methylPREDNISolone 120 MG in SYRINGE 0 ML IV ONE (10:00)
[2022-06-23] MEDS ORDERED: LORazepam 0.25 MG in SYRINGE 0.125 ML IV STA (10:00)
[2022-06-23] MEDS: guaiFENesin 600 MG TABCR PO SCH ×2 (10:33→20:36)
[2022-06-23 10:44] LABS: Phosphorus 3.6 mg/dl (2.5-4.9)
[2022-06-23 10:50] LABS: Troponin I High Sensitivity 5.3 pg/ml (0-20)
--- NOTE | 2022-06-23 11:37 | XRay Report ---
XR chest 1V portable HISTORY: Shortness of breath. COMPARISON: Chest 06/22/2022. FINDINGS: No pneumothorax. No pleural effusions. No focal lung consolidations to suggest pneumonia. N o evidence for bone edema. There is mild central peribronchial cuffing, unchanged. IMPRESSION: Mild central peribronchial cuffing, unchanged. This could be seen in the setting of a lower airways d isease/viral process. ACT 112: Negative or not required by law. Electronically signed by: Dion Alston M.D. 06/23/2022 11:35 AM
--- NOTE | 2022-06-23 14:11 | Communication Note ---
Date of Service: June 23, 2022 82-year-old gentleman with PMH of COPD, RAJNI on CPAP, PSVT, hypertension, HLD, moderate aortic regurgitation [TTE 2020], BPH, PMR on chronic steroid treatment, seizure disorder, past tobacco abuse presented to ED 06/22 with wheezing and cough productive of white sputum associated with some shortness of breath without chest pain. Patient has received COVID vaccination. Patient reports he has been wheezing/coughing since 1 month which has progressively worsened. Of note, patient was evaluated in the ED a day prior to this admission date and was discharged with doxycycline and prednisone course but the symptoms did not improve and hence the patient presented to the ED in the same day. Likely sepsis POA secondary to complicated bronchitis Acute exacerbation of COPD Admitting respiratory rate and pulse elevated, presented w/ worsening sob/wheezing/cough. Patient had worsening shortness of breath and extensive wheezing today morning, I was paged by RN, evaluated patient at bedside, was needing nonrebreather oxygen 6 L, patient was moderately in distress, breathing rapidly, EKG/troponin/mag/Phos/BNP/CXR were ordered and reviewed. Patient given loading dose of IV Solu-Medrol. We will stop p.o. prednisone and put him on IV Solu- Medrol 40 Mg 3 times daily for now, wean down gradually and then to p.o. depending on clinical assessment. Patient was reevaluated again later in the morning, patient was sitting up in bed, not in acute distress, on room air, felt perfectly fine per him. On examination wheezing has decreased. Continue with doxycycline, pulmonary consult if worsening. Other chronic medical conditions: HTN, PSVT, PMR on a steroid treatment, seizure disorder, past tobacco abuse -->> continue with home meds as and when appropriate. DVT prophylaxis: Lovenox Full code For detail information on the patient, refer to today's H&P note.
[2022-06-23] MEDS: FAMOTIDINE 20 MG TAB PO SCH ×2 (15:47→20:36)
--- NOTE | 2022-06-23 16:16 | Electrocardiogram Report ---
Test Reason : Blood Pressure : / mmHG Vent. Rate : 115 BPM Atrial Rate : 116 BPM P-R Int : 168 ms QRS Dur : 084 ms QT Int : 324 ms P-R-T Axes : 076 -39 048 degrees QTc Int : 448 ms Poor data quality, interpretation may be adversely affected Sinus tachycardia with Fusion complexes Left axis deviation Septal infarct (cited on or before 22-JUN-2022) Abnormal ECG When compared with ECG of 22-JUN-2022 21:46, (unconfirmed) No significant change was found Confirmed by Erik Selby ([id number]) on 06/23/2022 4:15:40 PM Referred By: REFERRED SELF Confirmed By:Erik Selby
--- NOTE | 2022-06-23 16:17 | Electrocardiogram Report ---
Test Reason : Blood Pressure : / mmHG Vent. Rate : 090 BPM Atrial Rate : 090 BPM P-R Int : 180 ms QRS Dur : 094 ms QT Int : 362 ms P-R-T Axes : 061 -34 052 degrees QTc Int : 442 ms Poor data quality, interpretation may be adversely affected Normal sinus rhythm Left axis deviation Septal infarct (cited on or before 22-JUN-2022) Abnormal ECG When compared with ECG of 23-JUN-2022 09:42, (unconfirmed) Fusion complexes are no longer Present Questionable change in initial forces of Septal leads Confirmed by Erik Selby ([id number]) on 06/23/2022 4:17:23 PM Referred By: REFERRED SELF Confirmed By:Erik Selby
--- NOTE | 2022-06-23 16:20 | Electrocardiogram Report ---
Test Reason : Blood Pressure : / mmHG Vent. Rate : 086 BPM Atrial Rate : 086 BPM P-R Int : 182 ms QRS Dur : 086 ms QT Int : 376 ms P-R-T Axes : 067 -58 043 degrees QTc Int : 449 ms Poor data quality, interpretation may be adversely affected Sinus rhythm with Fusion complexes Left axis deviation Septal infarct (cited on or before 22-JUN-2022) Abnormal ECG When compared with ECG of 22-JUN-2022 05:16, Fusion complexes are now Present Confirmed by Erik Selby ([id number]) on 06/23/2022 4:19:50 PM Referred By: REFERRED SELF Confirmed By:Erik Selby
[2022-06-23] MEDS: methylPREDNISolone 40 MG in SYRINGE 0 ML IV SCH ×2 (16:21→20:37)
[2022-06-23] MEDS: DOXYCYCLINE HYCLATE 100 MG CAP PO SCH (16:21)
[2022-06-23] MEDS ORDERED: LORazepam 0.5 MG TAB PO PRN (20:10)
[2022-06-23] MEDS ORDERED: CALCIUM 600MG + VIT D 400 IU TAB PO SCH (21:00)
[2022-06-23] MEDS ORDERED: MULTIVITAMIN TAB PO SCH (21:00)
[2022-06-24] MEDS: LEVALBUTEROL 1.25MG/0.5ML NEB INH SCH ×2 (07:02→12:44)
[2022-06-24] MEDS: IPRATROPIUM BROMIDE NEB SOLN 0.02% 2.5 ML VIAL INH SCH ×3 (07:02→12:44)
[2022-06-24 07:38] LABS: Hematocrit (blood only) 42.2 % (40.1-51.0); Hemoglobin 14.2 g/dl (14.0-18.0); Mean Corpuscular Hemoglobin 29.2 pg (25.0-34.0); Mean Corpuscular Hgb Conc 33.6 g/dL (32.0-36.0); Mean Corpuscular Volume 86.8 fL (80.0-100.0); Mean Platelet Volume 9.2 fL (9.4-12.4); Platelet Count 291 K/uL (130-400); RDW Coefficient of Variation 14.5 % (11.5-14.5); RDW Standard Deviation 45.9 fL (36.4-46.3); Red Blood Count 4.86 M/uL (4.63-6.08); White Blood Count 13.53 K/ul (4.8-10.8)
[2022-06-24 08:01] LABS: BUN Creatinine Ratio 20.4 (10-20); Calcium 9.2 mg/dl (8.5-10.1); Creatinine Clr Calc Pharmacy 64.9 ml/min; Est GFR (African American) 87.1 ml/min; Est GFR (Non-African American) 75.1 ml/min; Magnesium 2.1 mg/dl (1.7-2.4); Phosphorus 4.2 mg/dl (2.5-4.9); Potassium 3.9 mmol/L (3.5-5.1)
[2022-06-24] MEDS: DOXYCYCLINE HYCLATE 100 MG CAP PO SCH ×2 (08:41→17:45)
[2022-06-24] MEDS: FAMOTIDINE 20 MG TAB PO SCH (08:41)
[2022-06-24] MEDS: methylPREDNISolone 40 MG in SYRINGE 0 ML IV SCH (08:41)
[2022-06-24] MEDS: PRAVASTATIN SOD 20 MG TAB PO SCH (08:41)
[2022-06-24] MEDS: guaiFENesin 600 MG TABCR PO SCH (08:41)
[2022-06-24] MEDS: ENOXAPARIN INJ 40 MG/0.4 ML SYR SQ SCH (08:43)
[2022-06-24] MEDS: UMECLIDINIUM BROMIDE 62.5MCG/BLISTER 7 PUFFS/INHALER INH SCH (08:43)
[2022-06-24] MEDS: PHENobarbitaL 30 MG TAB PO SCH (08:51)
--- NOTE | 2022-06-24 12:05 | Discharge Summary ---
Date of Service June 24, 2022 Admission HPI Per Admitting Provider History obtained from patient, family, and records. Medical history significant for COPD, RAJNI on CPAP, PSVT, hypertension, hyperlipidemia, moderate aortic regurgitation (TTE 2020), BPH, PMR on chronic steroid Rx, seizure disorder, past tobacco abuse. Last confinement 2018 under [facility] service for elective lumbar laminectomy. 2 nights ago, patient noted cough symptoms productive of junky white sputum after watching a football game. Some shortness of breath without chest pain. No fluid retention. No fever, no chills. Not sure about sick contacts. Patient received COVID-19 vaccination. Patient evaluated at the ER yesterday morning. Solu-Medrol and neb treatment given for COPD exacerbation. Patient discharged home on doxycycline and prednisone course prescription. Yesterday afternoon, patient noted worsening symptoms. Pharmacy closed on a Thursday. Patient returned to ER for evaluation. Medical History as above Surgical History : Skin biopsy, cystoscopy, back surgery, TURP Family History : Colon cancer, prostate cancer Personal/Social history : Past tobacco abuse, occasional EtOH intake, retired systems software engineer Admission Exam Per Admitting Provider GENERAL: Slightly uncomfortable, slightly anxious, no respiratory distress, currently receiving breathing treatment SKIN: Normal color, warm HEENT: Bespectacled, pink palpebral conjunctivae, no ptosis, dry buccal mucosa NECK : Supple, no tenderness CHEST : Decreased breath sounds, diffuse expiratory wheezes, no tenderness HEART : Tachycardic, no obvious murmurs ABDOMEN: no distention, nontender EXTREMITIES : No LE swelling/tenderness, no other conspicuous deformities noted NEUROLOGIC : Coherent, no facial asymmetry, no other gross focality Principal Diagnosis Complicated bronchitis Acute exacerbation of COPD Discharge Exam GENERAL: Alert and oriented x3. NAD, on RA. HEENT: No pallor, no icterus. Pupils equal, round and reactive to light. Oral mucosa moist. NECK: No JVD, no neck masses. HEART: S1 and S2 heard. Regular rate and rhythm. No murmur, no gallop. RESPIRATORY SYSTEM: Normal AP diameter. No accessory muscle use. Wheezing has decreased significantly to minimal, no crackles. Dry cough at bedside. ABDOMEN: Soft, bowel sounds present, nontender, no distention. CENTRAL NERVOUS SYSTEM: No facial droop. Speech is clear. Obeys simple commands. Moves extremities. EXTREMITIES: No edema, no erythema seen. Discharge Data Allergies Allergy/AdvReac Type Severity Reaction Status Date / Time lamotrigine Allergy Unknown pruritus, Verified 06/23/22 00:26 rash oxycodone AdvReac Unknown "strange" Verified 06/23/22 00:26 feeling Consultations 06/22/22 23:36 ED Decision to Admit Stat Ordered Studies 06/22/22 22:24 CT angio chest PE protocol Urgent Hospital Course (1) COPD exacerbation: Plan 82-year-old gentleman with PMH of COPD, RAJNI on CPAP, PSVT, hypertension, HLD, moderate aortic regurgitation [TTE 2020], BPH, PMR on chronic steroid treatment, seizure disorder, past tobacco abuse presented to ED 06/22 with wheezing and cough productive of white sputum associated with some shortness of breath without chest pain. Patient has received COVID vaccination. Patient reports he has been wheezing/coughing since 1 month which has progressively worsened. Of note, patient was evaluated in the ED a day prior to this admission date and was discharged with doxycycline and prednisone course but the symptoms did not improve and hence the patient presented to the ED in the same day. He was managed for the following: Likely sepsis POA secondary to complicated bronchitis Acute exacerbation of COPD Admitting respiratory rate and pulse elevated, presented w/ worsening sob/wheezing/cough. Patient had worsening shortness of breath and extensive wheezing 9/12 AM, was put on Solu-Medrol with significant relief. Wheezing has significantly decreased to minimal on today's exam, patient feels fine, reports cough getting better, reports feeling better and would like to go home Will administer evening dose of Solu-Medrol before going home, patient to take his prednisone daily for 5 days from tomorrow. Patient to continue with doxycycline to complete the course. Patient made aware to follow-up with lung doctor as an outpatient. Patient will need pulmonary function test in 4 to 6 weeks time. Other chronic medical conditions: HTN, PSVT, PMR on a steroid treatment, seizure disorder, past tobacco abuse -->> continue with home meds as and when appropriate. Full code Patient being discharged to home with following instruction at the point of discharge: Follow-up with your primary care physician within a week time. Take antibiotic as prescribed to complete the course. Take your prednisone p.o. 40 mg daily for 5 days starting tomorrow. Follow-up with your lung doctor in a month time, you will most likely need pulmonary function test in 4 to 6 weeks time, discuss with your lung doctor. If you have worsening shortness of breath or wheezing, please contact emergency immediately. Take your medications as prescribed. Total Time Total Time Spent Total Time Spent (In Minutes): 35 Discharge Plan Discharge Items Patient Disposition: Home - Self-Care Reason For Visit: COPD EXACERBATION Discharge Diagnosis: Complicated bronchitis Acute exacerbation of COPD Activity: Resume your previous activity Non-emergency contact: Primary Care Provider Call non-emergency contact if: you have any medication questions, your symptoms worsen and your temperature is above 101 Follow-up/Referrals: Travis Acuna MD [Primary Care Provider] - (Date & Time 06/30/2022 10:20 AM Provider Katherin Van MD Department General Internal Medicine [facility] ) Diet: Heart Healthy Addtl Attending Provider Instructions: Follow-up with your primary care physician within a week time. Take antibiotic as prescribed to complete the course. Take your prednisone p.o. 40 mg daily for 5 days starting tomorrow. Follow-up with your lung doctor in a month time, you will most likely need pulmonary function test in 4 to 6 weeks time, discuss with your lung doctor. If you have worsening shortness of breath or wheezing, please contact emergency immediately. You can use albuterol inhaler as rescue for shortness of breath and wheezing. Take your medications as prescribed. Pending Studies at Discharge: Yes (Admitting blood culture) Stand-Alone Forms: My [facility], Smoking Cessation Medications and DC Order Prescriptions: New doxycycline hyclate 100 mg Capsule 100 mg PO Q12 6 Days Qty: 12 0RF guaifenesin [Mucinex] 600 mg Tablet Extended Release 12hr 600 mg PO Q12 5 Days Qty: 10 0RF albuterol sulfate [ProAir HFA] 90 mcg/actuation HFA aerosol inhaler 2 inh inhalation QID PRN (Reason: shortness of breath or wheezing) Qty: 8.5 0RF prednisone 20 mg tablet 40 mg PO DAILY 5 Days Qty: 10 0RF Continued multivitamin Tablet 1 tab PO QPM phenobarbital 60 mg Tablet 60 mg PO BID naproxen sodium [Aleve] 220 mg Capsule 440 mg PO BID PRN (Reason: Pain) ascorbic acid (vitamin C) 500 mg Capsule 500 mg PO QAM Spiriva with HandiHaler 18 mcg Capsule, W/Inhalation Device 1 cap INHALATION QAM valacyclovir 1 gram Tablet 1,000 mg PO UD PRN (Reason: Cold Sores) Calcium 600 + D(3) 600 mg calcium- 200 unit Capsule 1 cap PO QPM fluocinonide 0.05 % Cream 1 applic TOPICAL BID PRN (Reason: Rash) glucosamine-chondroitin 500-400 mg Tablet 1 tab PO BID pravastatin 20 mg tablet 20 mg PO DAILY prednisone 1 mg tablet 2 mg PO DAILY alendronate 70 mg Tablet 70 mg PO WK Rx Instructions: TAKE THIS MED EVERY THURSDAY Discontinued prednisone 10 mg tablet 10 mg PO .complex Qty: 31 0RF Rx Instructions: 06/22/22 : Prednisone 40 mg for 4 days, 30 mg for 3 days, 20 mg for 2 days and 10 mg for 2 days. doxycycline hyclate 100 mg capsule 100 mg PO BID 7 Days Qty: 14 0RF Discharge Orders: Discharge Order (Routine); Ordered 06/24/22 Ordered By: Lasha Best Admission Data Admit Date/Time: 06/23/22 00:35 Attending Provider: Lasha Best Admit Provider: Rod Camacho Primary Care Provider: Travis Acuna Other Providers: Rod Camacho
[2022-06-24] MEDS ORDERED: methylPREDNISolone 40 MG in SYRINGE 0 ML IV SCH (21:00)
== END 2022-06-24 18:25 | disposition home or self-care (01) ==
LOC: 2N 21:06 → ED 21:06 → SUATTDRO 06-23 00:35 → 2N 06-23 04:10

== ENCOUNTER 2022-06-26 08:41 | Inpatient (IN) ==
[2022-06-26] MEDS ORDERED: ALBUT/IPRATROP 3MG/0.5MG NEB 3 ML VIAL NEB ONE (08:54)
[2022-06-26] MEDS ORDERED: methylPREDNISolone 125 MG/2 ML VIAL IV STA (08:54)
--- NOTE | 2022-06-26 08:57 | Emergency Department Note ---
Impression & Plan COPD exacerbation, Acute respiratory distress ED Provider Note NAME: ANDREA ARCHULETA AGE: 82 SEX: M : 1940 ARRIVES VIA: Walk-In INFORMANT: Patient, ED PROVIDER(S): Erik Theodore DO CHIEF COMPLAINT: Shortness of breath HPI: The patient is an 82-year-old male who has a longstanding history of COPD who presented to the emergency department today for an evaluation of shortness of breath. The patient was admitted to our facility twice recently. He was just discharged from our facility last evening at 6 PM. Currently he is taking steroids as well as doxycycline. He has been using his breathing treatments multiple times through the course of the night but when he awoke this morning his symptoms were severe. He is unable to lie flat. He states he has very severe shortness of breath with a cough. He notices clear sputum. He denies having any hemoptysis. He denies having any lower extremity swelling or pain. He has had no fever. He denies having any trauma. The patient has had similar episodes in the past with COPD but he states this is one of the first times we have had such a hard time recovering after discharge. ROS: See above HPI for pertinent positives & negatives. A total of 10 systems reviewed and were otherwise negative. PAST MEDICAL HISTORY: See Below PAST SURGICAL HISTORY: See Below FAMILY HISTORY: See Below SOCIAL HISTORY: See Below HOME MEDICATIONS: See Below ALLERGIES: See Below VITALS: See Below PHYSICAL EXAMINATION: GENERAL: The patient is awake and alert. The patient is somewhat anxious appearing. EYES: The conjunctivae are clear. The pupils are round and reactive. EARS, NOSE, MOUTH AND THROAT: The nose is without any evidence of any deformity. NECK: The neck is nontender and supple. RESPIRATORY: Pursed lip breathing was noted. Diminished breath sounds are noted throughout especially in the right lung field. There is expiratory wheezing bilaterally. There is conversational dyspnea. CARDIOVASCULAR: Regular rate and rhythm noted there no murmurs rubs or gallops normal S1 normal S2. GASTROINTESTINAL: The abdomen is soft. Abdomen is nontender. MUSCULOSKELETAL/EXTREMITIES: There is no evidence of gross deformity full range of motion is noted in the hips and shoulders. SKIN: There is no obvious evidence of any rash. There are no petechiae, pallor or cyanosis noted. NEUROLOGIC: Patient is awake alert and oriented x3 MEDICAL DECISION MAKING: The patient is an 82-year-old male who has a history of COPD who presented to the emergency department for shortness of breath. The patient was recently discharged in our facility. The patient appears to have significant COPD history and on my evaluation had significant bronchospasm and tachypnea. He was treated with an hour-long DuoNeb in the emergency department. He was also treated with IV steroids and IV magnesium and IV fluids. On reevaluation he was significantly improved but still has wheezing and very significant shortness of breath with any exertion. For this reason I [facility] agreed to evaluate the patient in the emergency department for further management and disposition. Triage Nursing notes reviewed. Prior medical records reviewed Vital Signs: reviewed and remarkable for pressure. He also had borderline o xygen saturations. Differential diagnosis: Reactive airway disease, pneumonia, pneumothorax, COPD, CHF, infections, cardiac ischemia, pulmonary embolism, musculoskeletal, gastrointestinal, as well as other pathologies. ER treatment provided: See below Diagnostics interpreted by me: ECG: EKG was obtained in the emergency department. My interpretation is normal sinus rhythm at 85 bpm. There is no ectopy. Incomplete right bundle branch block pattern was noted. This was compared to a tracing from June 23, 2022. The QRS duration is increased compared to the previous tracing otherwise no changes were noted. Cardiac Monitoring: An order was placed for continuous cardiac monitoring. The monitor shows a rate of 91 bpm with sinus rhythm. Laboratory studies: As stated above and show below. Imaging studies: See below Consultation(s): I discussed this case with Dr. Zapata who [facility] They will evaluate the patient in the emergency department. ED COURSE: Procedures: none Critical Care: I have personally spent greater than 55 minutes of critical care time in the direct management of this patient. This includes bedside care, interpretation of diagnostic studies, and testing, discussion with consultants, patient, and family members, and other required patient management activities. This 55 minutes is in excess of all separately billable procedures. Past Med/Surg History Medical History (Updated 06/26/22 @ 11:23 by Erik Theodore DO) Arthritis BPH (benign prostatic hyperplasia) HX Cardiac murmur 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 Seizure HX "DISORIENTATION TYPE"-SINGLE EPISODE 7-8 YRS AGO-ON DAILY PHENOBARBITOL Sleep apnea CPAP Spinal stenosis RIGHT LEG PAIN Surgical History History of colonoscopy History of eye surgery TEAR DUCT SURGERY RIGHT History of hand surgery LEFT LIGAMENT Hx of transurethral resection of prostate Family History Mother Family hx of colon cancer Social History Smoking Status: Unknown if ever smoked Cigarettes Per Day: 1/2 Pack; Second Hand Exposure: Yes; Hx Alcohol Use: Yes Alcohol type: beer Hx Substance Use: No Preferred Language: Icelandic Communication Ability: Effective Flight Control Tower Operator Required: No Beliefs That Will Affect Care: None Current Living Situation: Alone Feels Safe at Home: Yes Assistive Devices: Walker Allergies Allergies Allergy/AdvReac Type Severity Reaction Status Date / Time lamotrigine Allergy Unknown pruritus, Verified 06/23/22 00:26 rash oxycodone AdvReac Unknown "strange" Verified 06/23/22 00:26 feeling Home Meds Home Medications Medication Instructions Recorded Confirmed ascorbic acid (vitamin C) 500 mg 500 mg PO QAM 05/31/19 06/23/22 capsule calcium carbonate 600 mg-vitamin 1 cap PO QPM 05/31/19 06/23/22 D3 5 mcg (200 unit) capsule (Calcium 600 + D(3)) fluocinonide 0.05 % topical cream 1 applic topical BID PRN Rash 05/31/19 06/23/22 multivitamin 1 tab PO QPM 05/31/19 06/23/22 naproxen sodium 220 mg capsule 440 mg PO BID PRN Pain 05/31/19 06/23/22 (Aleve) phenobarbital 60 mg tablet 60 mg PO BID 05/31/19 06/23/22 tiotropium bromide 18 mcg capsule 1 cap inhalation QAM 05/31/19 06/23/22 with inhalation device (Spiriva with HandiHaler) valacyclovir 1 gram tablet 1,000 mg PO UD PRN Cold Sores 05/31/19 06/23/22 alendronate 70 mg tablet 70 mg PO WK 06/23/22 06/23/22 glucosamine-chondroitin 500 mg-400 1 tab PO BID 06/23/22 06/23/22 mg tablet pravastatin 20 mg tablet 20 mg PO DAILY 06/23/22 06/23/22 prednisone 1 mg tablet 2 mg PO DAILY 06/23/22 06/23/22 Previous Rx's Medication Instructions Recorded albuterol sulfate 90 mcg/actuation 2 inh inhalation QID PRN shortness 06/24/22 aerosol inhaler (ProAir HFA) of breath or wheezing #8.5 grams doxycycline hyclate 100 mg capsule 100 mg PO Q12 6 days #12 caps 06/24/22 guaifenesin 600 mg tablet, 600 mg PO Q12 5 days #10 tabs 06/24/22 extended release 12 hr (Mucinex) prednisone 20 mg tablet 40 mg PO DAILY 5 days #10 tabs 06/24/22 Results & Data (ED) Vital Signs Vital Signs - 24 hr 06/26/22 08:46 06/26/22 09:07 06/26/22 09:08 Temperature 36.6 C Temperature Source Temporal Artery Scan Pulse Rate 88 Pulse Rate [Apical] 85 Pulse Rate from SpO2 Sensor Respiratory Rate 30 H 24 Respiratory Effort / Characteristics Non-Labored Spontaneous Short of Breath Spontaneous Respiratory Depth Normal Respiratory Pattern Regular Blood Pressure 200/92 H Blood Pressure Mean 128 Pulse Oximetry 94 96 Oxygen Delivery Method Room Air Room Air Sepsis Recent Fever Within 48 Hours No Sepsis New/Unexplained Change in Mental Status No Sepsis Action Taken by Nursing No Action Required 06/26/22 09:12 06/26/22 09:20 06/26/22 08:58 Temperature Temperature Source Pulse Rate 89 Pulse Rate [Apical] Pulse Rate from SpO2 Sensor 88 Respiratory Rate 25 H Respiratory Effort / Characteristics Respiratory Depth Respiratory Pattern Blood Pressure Blood Pressure Mean Pulse Oximetry 92 91 92 Oxygen Delivery Method Room Air Room Air Sepsis Recent Fever Within 48 Hours Sepsis New/Unexplained Change in Mental Status Sepsis Action Taken by Nursing 06/26/22 09:00 06/26/22 09:15 06/26/22 09:15 Temperature Temperature Source Pulse Rate 90 85 Pulse Rate [Apical] Pulse Rate from SpO2 Sensor 90 84 Respiratory Rate 21 17 Respiratory Effort / Characteristics Respiratory Depth Respiratory Pattern Blood Pressure 169/89 H Blood Pressure Mean 115 Pulse Oximetry 93 99 Oxygen Delivery Method Sepsis Recent Fever Within 48 Hours Sepsis New/Unexplained Change in Mental Status Sepsis Action Taken by Nursing 06/26/22 09:30 06/26/22 09:30 Temperature Temperature Source Pulse Rate 91 H Pulse Rate [Apical] Pulse Rate from SpO2 Sensor Respiratory Rate 21 Respiratory Effort / Characteristics Respiratory Depth Respiratory Pattern Blood Pressure 163/95 H Blood Pressure Mean 117 Pulse Oximetry Oxygen Delivery Method Sepsis Recent Fever Within 48 Hours Sepsis New/Unexplained Change in Mental Status Sepsis Action Taken by Halfway Medications Current Medication List: was personally reviewed by me Laboratory Data Attestation: I reviewed the patient's lab results. Result diagrams: 06/26/22 09:04 06/26/22 09:04 Lab Results 06/26/22 06/26/22 06/26/22 Range/Units 09:01 09:04 09:04 WBC 11.17 H (4.8-10.8) K/ul RBC 5.27 (4.63-6.08) M/uL Hgb 15.2 (14.0-18.0) g/dl Hct 46.3 (40.1-51.0) % MCV 87.9 (80.0-100.0) fL MCH 28.8 (25.0-34.0) pg MCHC 32.8 (32.0-36.0) g/dL RDW Std Deviation 45.2 (36.4-46.3) fL RDW Coeff of Radha 14.1 (11.5-14.5) % Plt Count 281 (130-400) K/uL MPV 8.7 L (9.4-12.4) fL Immature Gran % (Auto) 0.6 % Neut % (Auto) 56.8 % Lymph % (Auto) 20.1 % Addison % (Auto) 8.3 % Eos % (Auto) 13.8 % Baso % (Auto) 0.4 % Neut # (Auto) 6.35 (1.4-6.5) K/uL Lymph # (Auto) 2.24 (1.2-3.4) K/uL Addison # (Auto) 0.93 H (0.24-0.82) K/uL Eos # (Auto) 1.54 H (0-0.50) K/uL Baso # (Auto) 0.04 (0-0.2) K/uL Immature Gran # (Auto) 0.07 H (0.00-0.02) K/uL PT 10.5 (9.0-12.0) Seconds INR 1.0 (0.9-1.1) APTT 28.2 (21.0-31.0) Seconds PTT Ratio 1.0 VBG pH (7.36-7.41) VBG pCO2 (38-50) mmHg VBG pO2 mmHg VBG HCO3 mmol/L VBG O2 Saturation % VBG Base Excess mEq/L Sodium (136-145) mmol/L Potassium (3.5-5.1) mmol/L Chloride (98-107) mmol/L Carbon Dioxide (21-32) mmol/L Anion Gap (3-11) BUN (6-23) mg/dl Creatinine (0.6-1.4) mg/dl Est Cr Clr Drug Dosing Est GFR ( Amer) ml/min Est GFR (Non-Af Amer) ml/min BUN/Creatinine Ratio (10-20) Glucose (70-99(Fasting)) mg/dl Calcium (8.5-10.1) mg/dl Magnesium (1.7-2.4) mg/dl Total Bilirubin (0.2-1.0) mg/dl AST (13-39) U/L ALT (7-52) U/L Alkaline Phosphatase (34-104) U/L Troponin I High Sens (0-20) pg/ml Total Protein (6.0-8.3) gm/dl Albumin (3.4-5.0) gm/dl Globulin (2.5-4.0) gm/dl Albumin/Globulin Ratio (0.9-2) SARS-CoV-2, RNA, NAAT NEGATIVE (NEGATIVE) 06/26/22 06/26/22 Range/Units 09:04 09:17 WBC (4.8-10.8) K/ul RBC (4.63-6.08) M/uL Hgb (14.0-18.0) g/dl Hct (40.1-51.0) % MCV (80.0-100.0) fL MCH (25.0-34.0) pg MCHC (32.0-36.0) g/dL RDW Std Deviation (36.4-46.3) fL RDW Coeff of Radha (11.5-14.5) % Plt Count (130-400) K/uL MPV (9.4-12.4) fL Immature Gran % (Auto) % Neut % (Auto) % Lymph % (Auto) % Addison % (Auto) % Eos % (Auto) % Baso % (Auto) % Neut # (Auto) (1.4-6.5) K/uL Lymph # (Auto) (1.2-3.4) K/uL Addison # (Auto) (0.24-0.82) K/uL Eos # (Auto) (0-0.50) K/uL Baso # (Auto) (0-0.2) K/uL Immature Gran # (Auto) (0.00-0.02) K/uL PT (9.0-12.0) Seconds INR (0.9-1.1) APTT (21.0-31.0) Seconds PTT Ratio VBG pH 7.37 (7.36-7.41) VBG pCO2 58 H (38-50) mmHg VBG pO2 31 mmHg VBG HCO3 34 mmol/L VBG O2 Saturation < 60.0 % VBG Base Excess 6.4 mEq/L Sodium 139 (136-145) mmol/L Potassium 4.1 (3.5-5.1) mmol/L Chloride 99 (98-107) mmol/L Carbon Dioxide 33 H (21-32) mmol/L Anion Gap 7 (3-11) BUN 19 (6-23) mg/dl Creatinine 0.85 (0.6-1.4) mg/dl Est Cr Clr Drug Dosing Not Reportable Est GFR ( Amer) 92.7 ml/min Est GFR (Non-Af Amer) 80.0 ml/min BUN/Creatinine Ratio 22.4 H (10-20) Glucose 104 H (70-99(Fasting)) mg/dl Calcium 9.5 (8.5-10.1) mg/dl Magnesium 1.9 (1.7-2.4) mg/dl Total Bilirubin 0.5 (0.2-1.0) mg/dl AST 29 (13-39) U/L ALT 24 (7-52) U/L Alkaline Phosphatase 66 (34-104) U/L Troponin I High Sens 5.5 (0-20) pg/ml Total Protein 6.9 (6.0-8.3) gm/dl Albumin 4.3 (3.4-5.0) gm/dl Globulin 2.6 (2.5-4.0) gm/dl Albumin/Globulin Ratio 1.7 (0.9-2) SARS-CoV-2, RNA, NAAT (NEGATIVE) Administered Medications Discontinued Medications Albuterol (Albut/Ipratrop 3mg/0.5mg Neb 3 Ml Vial) 12 ml NEB ONE ONE; Protocol Stop: 06/26/22 08:55 Last Admin: 06/26/22 09:06 Dose: 12 ml Documented By: ANKUSH Magnesium Sulfate/Dextrose (Magnesium Sulfate / D5w) 1 gm in 100 mls @ 100 mls/hr IV NOW STA Stop: 06/26/22 10:18 Last Admin: 06/26/22 09:52 Dose: 100 mls/hr Documented By: AVILA Methylprednisolone (Methylprednisolone 125 Mg/2 Ml Vial) 125 mg IV NOW STA Stop: 06/26/22 08:55 Last Admin: 06/26/22 09:15 Dose: 125 mg Documented By: AVILA Imaging Data Radiologist's Impression: Chest X-Ray 06/26/22 08:54 XR chest 1V portable CLINICAL HISTORY: Dyspnea COMPARISON STUDY: Chest CT June 22, 2022. Chest radiograph June 23, 2022. FINDINGS: Lung volumes are normal. Lungs are clear. There is no pneumothorax or pleural effusion. Cardiac size is normal. Mediastinal contours are normal. There is no evidence for pulmonary edema. IMPRESSION: No acute cardiopulmonary findings. ACT 112: Negative or not required by law. Electronically signed by: Gabriel Persaud M.D. 06/26/2022 9:21 AM Discharge Plan Visit Data Chief Complaint: Shortness of Breath/Dyspnea Stated Complaint: SOB ED Provider: Erik Theodore Discharge Problem: COPD exacerbation, Acute respiratory distress Patient Disposition: Being Evaluated by Hospitalist Forms Stand Alone Forms: My [facility] [employer] Prescriptions Prescriptions: No Action multivitamin Tablet 1 tab PO QPM phenobarbital 60 mg Tablet 60 mg PO BID naproxen sodium [Aleve] 220 mg Capsule 440 mg PO BID PRN (Reason: Pain) ascorbic acid (vitamin C) 500 mg Capsule 500 mg PO QAM Spiriva with HandiHaler 18 mcg Capsule, W/Inhalation Device 1 cap INHALATION QAM valacyclovir 1 gram Tablet 1,000 mg PO UD PRN (Reason: Cold Sores) Calcium 600 + D(3) 600 mg calcium- 200 unit Capsule 1 cap PO QPM fluocinonide 0.05 % Cream 1 applic TOPICAL BID PRN (Reason: Rash) glucosamine-chondroitin 500-400 mg Tablet 1 tab PO BID pravastatin 20 mg tablet 20 mg PO DAILY prednisone 1 mg tablet 2 mg PO DAILY alendronate 70 mg Tablet 70 mg PO WK Rx Instructions: TAKE THIS MED EVERY THURSDAY doxycycline hyclate 100 mg Capsule 100 mg PO Q12 6 Days Qty: 12 0RF guaifenesin [Mucinex] 600 mg Tablet Extended Release 12hr 600 mg PO Q12 5 Days Qty: 10 0RF albuterol sulfate [ProAir HFA] 90 mcg/actuation HFA aerosol inhaler 2 inh inhalation QID PRN (Reason: shortness of breath or wheezing) Qty: 8.5 0RF prednisone 20 mg tablet 40 mg PO DAILY 5 Days Qty: 10 0RF Referrals Referrals: Travis Acuna MD [Primary Care Provider] -
[2022-06-26] MEDS ORDERED: SODIUM CHLORIDE 0.9% 1000ML 500 ML IV ONE (09:19)
[2022-06-26] MEDS ORDERED: MAGNESIUM SULFATE / D5W 1 GM/100 ML BAG IV STA (09:19)
[2022-06-26 09:21] LABS: Basophils # (auto) 0.04 K/uL (0-0.2); Basophils % (auto) 0.4 %; Eosinophils # (auto) 1.54 K/uL (0-0.50); Eosinophils % (auto) 13.8 %; Hematocrit (blood only) 46.3 % (40.1-51.0); Hemoglobin 15.2 g/dl (14.0-18.0); Immature Granulocytes # (auto) 0.07 K/uL (0.00-0.02); Immature Granulocytes % (auto) 0.6 %; Lymphocytes # (auto) 2.24 K/uL (1.2-3.4); Lymphocytes % (auto) 20.1 %; Mean Corpuscular Hemoglobin 28.8 pg (25.0-34.0); Mean Corpuscular Hgb Conc 32.8 g/dL (32.0-36.0); Mean Corpuscular Volume 87.9 fL (80.0-100.0); Mean Platelet Volume 8.7 fL (9.4-12.4); Monocytes # (auto) 0.93 K/uL (0.24-0.82); Monocytes % (auto) 8.3 %; Neutrophils # (auto) 6.35 K/uL (1.4-6.5); Neutrophils % (auto) 56.8 %; Platelet Count 281 K/uL (130-400); RDW Coefficient of Variation 14.1 % (11.5-14.5); RDW Standard Deviation 45.2 fL (36.4-46.3); Red Blood Count 5.27 M/uL (4.63-6.08); White Blood Count 11.17 K/ul (4.8-10.8)
--- NOTE | 2022-06-26 09:22 | XRay Report ---
XR chest 1V portable CLINICAL HISTORY: Dyspnea COMPARISON STUDY: Chest CT June 22, 2022. Chest radiograph June 23, 2022. FINDINGS: Lung volumes are normal. Lungs are clear. There is no pneumothorax or pleural effusion. Car diac size is normal. Mediastinal contours are normal. There is no evidence for pulmonary edema. IMPRESSION: No acute cardiopulmonary findings. ACT 112: Negative or not required by law. Electronically signed by: Gabriel Persaud M.D. 06/26/2022 9:21 AM
[2022-06-26 09:33] LABS: Partial Thromboplastin Time 28.2 Seconds (21.0-31.0); Prothrombin Time 10.5 Seconds (9.0-12.0)
[2022-06-26 09:38] LABS: Base Excess VBG 6.4 mEq/L; HCO3 VBG 34 mmol/L; Oxygen Saturation VBG < 60.0 %; PCO2 VBG 58 mmHg (38-50); PO2 VBG 31 mmHg; pH VBG 7.37 (7.36-7.41)
[2022-06-26 10:02] LABS: Troponin I High Sensitivity 5.5 pg/ml (0-20)
[2022-06-26 10:03] LABS: Alanine Aminotransferase 24 U/L (7-52); Albumin Globulin Ratio 1.7 (0.9-2); Albumin Level 4.3 gm/dl (3.4-5.0); Alkaline Phosphatase 66 U/L (34-104); Anion Gap 7 (3-11); Aspartate Aminotransferase 29 U/L (13-39); BUN Creatinine Ratio 22.4 (10-20); Bilirubin,Total 0.5 mg/dl (0.2-1.0); Blood Urea Nitrogen 19 mg/dl (6-23); Calcium 9.5 mg/dl (8.5-10.1); Carbon Dioxide 33 mmol/L (21-32); Chloride 99 mmol/L (98-107); Est GFR (African American) 92.7 ml/min; Globulin 2.6 gm/dl (2.5-4.0); Glucose 104 mg/dl (70-99(Fasting)); Magnesium 1.9 mg/dl (1.7-2.4); Potassium 4.1 mmol/L (3.5-5.1); Sodium 139 mmol/L (136-145); Total Protein 6.9 gm/dl (6.0-8.3)
--- NOTE | 2022-06-26 11:16 | History & Physical Report ---
Date of Service June 26, 2022 Assessment & Plan (1) COPD exacerbation: Plan: Acute COPD Exacerbation CXR: No acute cardiopulmonary findings. Negative COVID screen Continue Doxycycline Started on IV solumedrol, bronchodilators Saturating well on room air Check biofire Supplemental oxygen as needed Consider pulmonology evaluation. Hold home prednisone while on IV steroids Pulmonary hygiene Mild leukocytosis Likely due to prednisone No other obvious signs of infection Continue Doxy as above Polymyalgia rheumatica on chronic steroids seizure disorder Continue phenobarbital Hyperlipidemia on Statin DVT prophylaxis Lovenox SQ CODE STATUS Full code History of Present Illness Chief Complaint: Shortness of Breath Primary Care Provider: Travis Acuna MD Patient is an 82-year-old male with history of COPD, polymyalgia rheumatica on chronic steroids, seizure disorder, BPH, hyperlipidemia, lumbar spinal stenosis arctic valve insufficiency and other medical problems presents with history of worsening cough, shortness of breath and wheezing his last few days. Patient was admitted 3 days ago for COPD exacerbation, complicated bronchitis and was discharged on 06/24/22 from [facility]. Patient follows with [facility] pulmonology as outpatient. Despite continuing doxycycline, prednisone and his home inhalers patient's symptoms continue to worsen. Patient also states having dyspnea on exertion, feels very tired. He admits to have some chest discomfort associated with cough. He has clear sputum and denies any hemoptysis. He quit smoking many years ago. Uses CPAP at bedtime for obstructive sleep apnea. Denies any history of palpitations, dizziness, pedal edema, fever, chills, fall, headache, change in vision, bowel/bladder incontinence, nausea, vomiting, abdominal pain, blood in stools, diarrhea, dysuria, hematuria, recent travel, sick contact. Allergies Allergy/AdvReac Type Severity Reaction Status Date / Time lamotrigine Allergy Unknown pruritus, Verified 06/23/22 00:26 rash oxycodone AdvReac Unknown "strange" Verified 06/23/22 00:26 feeling Home Medications Medication Instructions Recorded Confirmed Type ascorbic acid (vitamin C) 500 mg 500 mg PO QAM 05/31/19 06/26/22 History capsule calcium carbonate 600 mg-vitamin 1 cap PO QPM 05/31/19 06/26/22 History D3 5 mcg (200 unit) capsule (Calcium 600 + D(3)) fluocinonide 0.05 % topical cream 1 applic topical BID PRN Rash 05/31/19 06/26/22 History multivitamin 1 tab PO QPM 05/31/19 06/26/22 History naproxen sodium 220 mg capsule 440 mg PO BID PRN Pain 05/31/19 06/26/22 History (Aleve) phenobarbital 60 mg tablet 60 mg PO BID 05/31/19 06/26/22 History tiotropium bromide 18 mcg capsule 1 cap inhalation QAM 05/31/19 06/26/22 History with inhalation device (Spiriva with HandiHaler) valacyclovir 1 gram tablet 1,000 mg PO UD PRN Cold Sores 05/31/19 06/26/22 History alendronate 70 mg tablet 70 mg PO WK 06/23/22 06/26/22 History glucosamine-chondroitin 500 mg-400 1 tab PO BID 06/23/22 06/26/22 History mg tablet pravastatin 20 mg tablet 20 mg PO DAILY 06/23/22 06/26/22 History prednisone 1 mg tablet 2 mg PO DAILY 06/23/22 06/26/22 History albuterol sulfate 90 mcg/actuation 2 inh inhalation QID PRN shortness 06/24/22 06/26/22 Rx aerosol inhaler (ProAir HFA) of breath or wheezing #8.5 grams doxycycline hyclate 100 mg capsule 100 mg PO Q12 6 days #12 caps 06/24/22 06/26/22 Rx guaifenesin 600 mg tablet, 600 mg PO Q12 5 days #10 tabs 06/24/22 06/26/22 Rx extended release 12 hr (Mucinex) prednisone 20 mg tablet 40 mg PO DAILY 5 days #10 tabs 06/24/22 06/26/22 Rx Past Med/Surg History Medical History Arthritis BPH (benign prostatic hyperplasia) HX Cardiac murmur 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 Seizure HX "DISORIENTATION TYPE"-SINGLE EPISODE 7-8 YRS AGO-ON DAILY PHENOBARBITOL Sleep apnea CPAP Spinal stenosis RIGHT LEG PAIN Surgical History History of colonoscopy History of eye surgery TEAR DUCT SURGERY RIGHT History of hand surgery LEFT LIGAMENT Hx of transurethral resection of prostate Family History Mother Family hx of colon cancer Social History Smoking Status: Unknown if ever smoked Cigarettes Per Day: 1/2 Pack; Second Hand Exposure: Yes; Hx Alcohol Use: Yes Alcohol type: beer Hx Substance Use: No Preferred Language: Mongolian Communication Ability: Effective Supervisor [employer] Required: No Beliefs That Will Affect Care: None Current Living Situation: Alone Feels Safe at Home: Yes Assistive Devices: Walker Review of Systems Review of Systems: All systems reviewed & are unremarkable except as noted in Subjective Physical Exam Physical Exam: Physical Exam: Vitals signs as noted above General Appearance:Moderately built and nourished, no apparent distress Head: normocephalic, Atraumatic Eyes: normal inspection, EOMI Neck: supple, Trachea midline Respiratory/Chest: Decreased breath sounds, scattered wheezes, No accessory muscle use Cardiovascular: S1, S2, No murmur Abdomen/GI:Soft, Non tender, Bowel sounds present Extremities/Musculoskeletal:normal inspection, no edema Neurologic/Psych:AAOX3, grossly no focal neurological deficits Skin: normal color, warm Results & Data Results & Data ([facility]) Vital Signs (Past 12 Hours) Vital Signs Temp Pulse Pulse Resp BP Pulse Ox O2 Del Method 06/26/22 09:30 91 H 21 06/26/22 09:30 163/95 H 06/26/22 09:15 85 17 99 06/26/22 09:15 169/89 H 06/26/22 09:00 90 21 93 06/26/22 08:58 89 25 H 92 06/26/22 09:20 91 Room Air 06/26/22 09:12 92 Room Air 06/26/22 09:08 Room Air 06/26/22 09:07 85 24 96 Room Air 06/26/22 08:46 36.6 C 88 30 H 200/92 H 94 Laboratory Results Short CBC 06/26/22 Range/Units 09:04 WBC 11.17 H (4.8-10.8) K/ul Hgb 15.2 (14.0-18.0) g/dl Hct 46.3 (40.1-51.0) % Plt Count 281 (130-400) K/uL BMP 06/26/22 09:04 Sodium 139 Potassium 4.1 Chloride 99 Carbon Dioxide 33 H BUN 19 Creatinine 0.85 Glucose 104 H Calcium 9.5 Liver Function 06/26/22 Range/Units 09:04 Total Bilirubin 0.5 (0.2-1.0) mg/dl AST 29 (13-39) U/L ALT 24 (7-52) U/L Alkaline Phosphatase 66 (34-104) U/L Albumin 4.3 (3.4-5.0) gm/dl Diagnostic Findings CXR:No acute cardiopulmonary findings. ECG Additional Comments: EKG: Normal sinus rhythm, left axis deviation, incomplete right bundle branch block, nonspecific ST-T wave changes.
[2022-06-26] MEDS ORDERED: ACETAMINOPHEN 325 MG TAB PO PRN (13:16)
[2022-06-26] MEDS ORDERED: POLYETHYLENE (MIRALAX) 17 GM PACK PO PRN (13:16)
[2022-06-26] MEDS ORDERED: DEXTROMETHORPHAN POLYMR COMPLX 30 MG/5 ML UDP PO PRN (13:16)
[2022-06-26] MEDS ORDERED: ONDANSETRON INJ 2 MG/ML 2 ML VIAL IV PRN (13:16)
[2022-06-26] MEDS ORDERED: PHENobarbitaL 30 MG TAB PO ONE (13:59)
[2022-06-26] MEDS: ALBUT/IPRATROP 3MG/0.5MG NEB 3 ML VIAL NEB SCH ×2 (15:29→19:09)
[2022-06-26] MEDS: ENOXAPARIN INJ 40 MG/0.4 ML SYR SQ SCH (19:25)
[2022-06-26] MEDS ORDERED: MULTIVITAMIN TAB PO SCH (21:00)
[2022-06-26] MEDS ORDERED: CALCIUM 600MG + VIT D 400 IU TAB PO SCH (21:00)
[2022-06-26] MEDS: Patient's HEIGHT &/or WEIGHT Needed SCH (21:06)
[2022-06-26] MEDS: DOXYCYCLINE HYCLATE 100 MG CAP PO SCH (21:42)
[2022-06-26] MEDS: methylPREDNISolone 40 MG in SYRINGE 0 ML IV SCH (21:44)
[2022-06-26] MEDS: PHENobarbitaL 30 MG TAB PO SCH (21:50)
[2022-06-27] MEDS ORDERED: cloNIDine HCL 0.1 MG TAB PO ONE ×2 (01:40→18:40)
[2022-06-27] MEDS: ALBUT/IPRATROP 3MG/0.5MG NEB 3 ML VIAL NEB SCH ×5 (02:25→19:17)
[2022-06-27] MEDS: methylPREDNISolone 40 MG in SYRINGE 0 ML IV SCH ×3 (05:39→21:09)
--- NOTE | 2022-06-27 05:51 | Electrocardiogram Report ---
Test Reason : Blood Pressure : / mmHG Vent. Rate : 085 BPM Atrial Rate : 085 BPM P-R Int : 168 ms QRS Dur : 096 ms QT Int : 376 ms P-R-T Axes : 074 -39 056 degrees QTc Int : 447 ms Poor data quality, interpretation may be adversely affected Normal sinus rhythm Left axis deviation Incomplete right bundle branch block Septal infarct (cited on or before 22-JUN-2022) Abnormal ECG When compared with ECG of 23-JUN-2022 12:08, No significant change Confirmed by Hung Whitaker ([id number]) on 06/27/2022 5:51:04 AM Referred By: Confirmed By:Hung Whitaker
[2022-06-27] MEDS: Patient's HEIGHT &/or WEIGHT Needed SCH ×13 (07:37→10:09)
--- NOTE | 2022-06-27 08:07 | Hospitalist Progress Note ---
Date of Service June 27, 2022 Assessment & Plan (1) COPD exacerbation: Plan: Acute COPD Exacerbation CXR: No acute cardiopulmonary findings. Negative COVID screen Continue Doxycycline Started on IV solumedrol, bronchodilators Saturating well on room air Biofire negative Supplemental oxygen as needed Consider pulmonology evaluation. Hold home prednisone while on IV steroids Pulmonary hygiene Mild leukocytosis Likely due to prednisone No other obvious signs of infection Continue Doxy as above Polymyalgia rheumatica on chronic steroids seizure disorder Continue phenobarbital Hyperlipidemia on Statin DVT prophylaxis Lovenox SQ CODE STATUS Full code Admission and Anticipated Discharge Date Admission Date: June 26, 2022 Subjective Pt seen in follow up of COPD exacerbation Previously recently admitted. Currently sitting up in bed, in no acute distress, however somewhat has difficulty breathing Reports cough on and off, with white sputum Currently on room air Speaking very softly Denies fevers, chills, chest pain, abdominal pain, nausea vomiting Review of Systems Review of Systems: All systems reviewed & are unremarkable except as noted in Subjective Physical Exam Physical Exam: General Appearance:WD/WN elderly M in no apparent distress Head: normocephalic, Atraumatic Eyes: normal inspection, EOMI Neck: supple Respiratory/Chest: Decreased breath sounds, + exp. wheezing, No accessory muscle use Cardiovascular: S1, S2, No murmur Abdomen/GI:Soft, Non tender, Bowel sounds present Extremities/Musculoskeletal:normal inspection, no edema Neurologic/Psych:AAOX3, grossly no focal neurological deficits Skin: normal color, warm Results & Data Results & Data ([facility]) Vital Signs (Past 12 Hours) Vital Signs Temp Pulse Pulse Resp BP BP Pulse Ox 06/27/22 07:27 36.5 C 91 H 20 160/75 H 91 06/27/22 07:08 83 20 97 06/27/22 06:59 80 06/26/22 22:30 98 H 06/27/22 03:17 36.5 C 80 18 150/79 H 98 06/27/22 02:27 74 18 99 06/27/22 01:40 36.5 C 87 20 187/79 H 97 06/26/22 20:55 94 H 06/26/22 23:35 166/56 H 06/26/22 22:51 36.4 C L 93 H 20 179/81 H 93 O2 Del Method O2 Flow Rate 06/27/22 07:27 Room Air 06/27/22 07:08 Nasal Cannula 3 06/27/22 06:59 06/26/22 22:30 06/27/22 03:17 Nasal Cannula 3 06/27/22 02:27 Nasal Cannula 4 06/27/22 01:40 Nasal Cannula 2 06/26/22 20:55 06/26/22 23:35 06/26/22 22:51 Room Air Laboratory Results 06/27/22 Range/Units Unknown Adenovirus (PCR) Not Detected (NotDetected) B. pertussis DNA (PCR) Not Detected (NotDetected) B.parapertussis DNA PCR Not Detected (NotDetected) C. pneumoniae DNA (PCR) Not Detected (NotDetected) Coronavirus OC43 (PCR) Not Detected (NotDetected) Coronavirus HKU1 (PCR) Not Detected (NotDetected) Coronavirus 229E (PCR) Not Detected (NotDetected) SARS-CoV-2 (PCR) Not Detected (NotDetected) Coronavirus NL63 (PCR) Not Detected (NotDetected) Human Metapneumovir PCR Not Detected (NotDetected) Influenza Type A (PCR) Not Detected (NotDetected) Influenza Type B (PCR) Not Detected (NotDetected) M. pneumoniae (PCR) Not Detected (NotDetected) Parainfluenza 1 (PCR) Not Detected (NotDetected) Parainfluenza 2 (PCR) Not Detected (NotDetected) Parainfluenza 3 (PCR) Not Detected (NotDetected) Parainfluenza 4 (PCR) Not Detected (NotDetected) RSV (PCR) Not Detected (NotDetected) Entero/Rhino (PCR) Not Detected (NotDetected) Medications Administered Current Inpatient Medications Acetaminophen (Acetaminophen 325 Mg Tab) 650 mg PO Q4H PRN PRN Reason: pain/fever Stop: 07/26/22 13:15 Albuterol (Albut/Ipratrop 3mg/0.5mg Neb 3 Ml Vial) 3 ml NEB QIDR [facility]; Protocol Stop: 07/26/22 14:59 Last Admin: 06/27/22 07:05 Dose: 3 ml Ascorbic Acid (Ascorbic Acid 500 Mg Tab) 500 mg PO QAM [facility] Stop: 07/27/22 08:59 Dextromethorphan Polymer Complex (Dextromethorphan Polymr Complx 30 Mg/5 Ml Udp) 30 mg PO Q8H PRN PRN Reason: Cough Stop: 07/26/22 13:15 Doxycycline Hyclate (Doxycycline Hyclate 100 Mg Cap) 100 mg PO BID [facility] Stop: 07/03/22 20:59 Last Admin: 06/26/22 21:42 Dose: 100 mg Enoxaparin Sodium (Enoxaparin Inj 40 Mg/0.4 Ml Syr) 40 mg SQ Q24H [facility] Stop: 07/26/22 15:29 Last Admin: 06/26/22 19:25 Dose: 40 mg Methylprednisolone 40 mg/ (Syringe) 0.64 mls @ 1.5 mls/min IV Q8H [facility] Stop: 07/26/22 20:59 Last Admin: 06/27/22 05:39 Dose: 1.5 mls/min Multivitamins (Multivitamin Tab) 1 tab PO DAILY [facility] Stop: 07/27/22 08:59 Multivitamins/Minerals (Calcium 600mg + Vit D 400 Iu Tab) 1 tab PO DAILY [facility] Stop: 07/27/22 08:59 Ondansetron HCl (Ondansetron Inj 2 Mg/Ml 2 Ml Vial) 4 mg IV Q6H PRN PRN Reason: Nausea Stop: 07/26/22 13:15 Phenobarbital (Phenobarbital 30 Mg Tab) 60 mg PO BID [facility] Stop: 07/26/22 20:59 Last Admin: 06/26/22 21:50 Dose: 60 mg Polyethylene Glycol (Polyethylene (Miralax) 17 Gm Pack) 17 gm PO DAILY PRN PRN Reason: Constipation Stop: 07/26/22 13:15 Pravastatin Sodium (Pravastatin Sod 20 Mg Tab) 20 mg PO DAILY [facility] Stop: 07/27/22 08:59
[2022-06-27] MEDS: DOXYCYCLINE HYCLATE 100 MG CAP PO SCH ×2 (09:06→21:09)
[2022-06-27] MEDS: ASCORBIC ACID 500 MG TAB PO SCH (09:07)
[2022-06-27] MEDS: MULTIVITAMIN TAB PO SCH (09:07)
[2022-06-27] MEDS: PRAVASTATIN SOD 20 MG TAB PO SCH (09:07)
[2022-06-27] MEDS: CALCIUM 600MG + VIT D 400 IU TAB PO SCH (09:07)
[2022-06-27] MEDS: PHENobarbitaL 30 MG TAB PO SCH ×2 (09:13→21:08)
[2022-06-27 09:21] LABS: Adenovirus PCR Not Detected (NotDetected); Bordetella parapertussis PCR Not Detected (NotDetected); Bordetella pertussis PCR Not Detected (NotDetected); Chlamydia pneumoniae PCR Not Detected (NotDetected); Coronavirus 229E PCR Not Detected (NotDetected); Coronavirus CoV-2 (COVID19)PCR Not Detected (NotDetected); Coronavirus HKU1 PCR Not Detected (NotDetected); Coronavirus NL63 PCR Not Detected (NotDetected); Coronavirus OC43PCR Not Detected (NotDetected); Human Metapneumovirus PCR Not Detected (NotDetected); Influenza A PCR Not Detected (NotDetected); Influenza B PCR Not Detected (NotDetected); Mycoplasma pneumoniae PCR Not Detected (NotDetected); Parainfluenza Virus 1 PCR Not Detected (NotDetected); Parainfluenza Virus 2 PCR Not Detected (NotDetected); Parainfluenza Virus 3 PCR Not Detected (NotDetected); Parainfluenza Virus 4 PCR Not Detected (NotDetected); Respiratory Syncytial VirusPCR Not Detected (NotDetected); Rhinovirus/Enterovirus PCR Not Detected (NotDetected)
[2022-06-27] MEDS ORDERED: guaiFENesin 600 MG TABCR PO ONE (11:45)
[2022-06-27] MEDS: ENOXAPARIN INJ 40 MG/0.4 ML SYR SQ SCH (15:12)
[2022-06-27] MEDS: guaiFENesin 600 MG TABCR PO SCH (21:08)
[2022-06-28] MEDS: ALBUT/IPRATROP 3MG/0.5MG NEB 3 ML VIAL NEB SCH ×5 (00:04→19:10)
[2022-06-28] MEDS: methylPREDNISolone 40 MG in SYRINGE 0 ML IV SCH ×3 (05:42→21:12)
[2022-06-28] MEDS: guaiFENesin 600 MG TABCR PO SCH ×2 (07:55→21:10)
[2022-06-28] MEDS: DOXYCYCLINE HYCLATE 100 MG CAP PO SCH ×2 (07:55→21:11)
[2022-06-28] MEDS: CALCIUM 600MG + VIT D 400 IU TAB PO SCH (07:56)
[2022-06-28] MEDS: ASCORBIC ACID 500 MG TAB PO SCH (07:56)
[2022-06-28] MEDS: PRAVASTATIN SOD 20 MG TAB PO SCH (07:56)
[2022-06-28] MEDS: MULTIVITAMIN TAB PO SCH (07:56)
[2022-06-28] MEDS: PHENobarbitaL 30 MG TAB PO SCH ×2 (08:01→21:10)
[2022-06-28 08:14] LABS: Hematocrit (blood only) 44.9 % (40.1-51.0); Hemoglobin 14.9 g/dl (14.0-18.0); Mean Corpuscular Hemoglobin 28.4 pg (25.0-34.0); Mean Corpuscular Hgb Conc 33.2 g/dL (32.0-36.0); Mean Corpuscular Volume 85.7 fL (80.0-100.0); Mean Platelet Volume 8.5 fL (9.4-12.4); Platelet Count 284 K/uL (130-400); RDW Coefficient of Variation 13.8 % (11.5-14.5); RDW Standard Deviation 42.5 fL (36.4-46.3); Red Blood Count 5.24 M/uL (4.63-6.08); White Blood Count 12.06 K/ul (4.8-10.8)
[2022-06-28 08:38] LABS: BUN Creatinine Ratio 25.6 (10-20); Calcium 9.2 mg/dl (8.5-10.1); Creatinine Clr Calc Pharmacy 73.6 ml/min; Est GFR (African American) 94.1 ml/min; Est GFR (Non-African American) 81.2 ml/min; Phosphorus 3.5 mg/dl (2.5-4.9); Potassium 4.2 mmol/L (3.5-5.1)
[2022-06-28] MEDS ORDERED: COUGH DROP (SUGAR FREE) LOZ 24 LOZ/1 BOX BUCCAL ONE (11:48)
[2022-06-28] MEDS ORDERED: NURSING DECISION MEDICATION PRN (11:49)
--- NOTE | 2022-06-28 12:34 | Hospitalist Progress Note ---
Date of Service June 28, 2022 Assessment & Plan (1) COPD exacerbation: Plan: Acute COPD Exacerbation CXR: No acute cardiopulmonary findings. Negative COVID screen Continue Doxycycline Started on IV solumedrol, bronchodilators Saturating well on room air Biofire negative Supplemental oxygen as needed Consider pulmonology evaluation. Hold home prednisone while on IV steroids Pulmonary hygiene Mild leukocytosis Likely due to prednisone No other obvious signs of infection Continue Doxy as above Polymyalgia rheumatica on chronic steroids seizure disorder Continue phenobarbital Hyperlipidemia on Statin DVT prophylaxis Lovenox SQ CODE STATUS Full code Admission and Anticipated Discharge Date Admission Date: June 26, 2022 Subjective Pt seen in follow up of COPD exacerbation Previously recently admitted. Currently sitting up in bed, in no acute distress, however somewhat has difficulty breathing Reports he was walking in the hallway, and after that he was more short of breath Currently patient's girlfriend at the bedside. Reports cough overnight, and therefore poor sleep, also increased sputum production (white) Currently on room air Denies fevers, chills, chest pain, abdominal pain, nausea vomiting Review of Systems Review of Systems: All systems reviewed & are unremarkable except as noted in Subjective Physical Exam Physical Exam: General Appearance:WD/WN elderly M in no apparent distress Head: normocephalic, Atraumatic Eyes: normal inspection, EOMI Neck: supple Respiratory/Chest: Decreased breath sounds, + exp. wheezing, No accessory muscle use Cardiovascular: S1, S2, No murmur Abdomen/GI:Soft, Non tender, Bowel sounds present Extremities/Musculoskeletal:normal inspection, no edema Neurologic/Psych:AAOX3, grossly no focal neurological deficits Skin: normal color, warm Results & Data Results & Data ([facility]) Vital Signs (Past 12 Hours) Vital Signs Temp Pulse Pulse Resp BP BP Pulse Ox 06/28/22 11:12 83 18 92 06/28/22 08:00 06/28/22 07:38 36.5 C 70 18 186/83 H 93 06/28/22 07:37 84 18 94 06/28/22 07:16 87 06/28/22 05:30 36.4 C L 82 18 153/78 H 93 O2 Del Method 06/28/22 11:12 Room Air 06/28/22 08:00 Room Air 06/28/22 07:38 Room Air 06/28/22 07:37 Room Air 06/28/22 07:16 06/28/22 05:30 Room Air Laboratory Results 06/28/22 06/28/22 Range/Units 08:05 08:05 WBC 12.06 H (4.8-10.8) K/ul RBC 5.24 (4.63-6.08) M/uL Hgb 14.9 (14.0-18.0) g/dl Hct 44.9 (40.1-51.0) % MCV 85.7 (80.0-100.0) fL MCH 28.4 (25.0-34.0) pg MCHC 33.2 (32.0-36.0) g/dL RDW Std Deviation 42.5 (36.4-46.3) fL RDW Coeff of Radha 13.8 (11.5-14.5) % Plt Count 284 (130-400) K/uL MPV 8.5 L (9.4-12.4) fL Sodium 133 L (136-145) mmol/L Potassium 4.2 (3.5-5.1) mmol/L Chloride 98 (98-107) mmol/L Carbon Dioxide 27 (21-32) mmol/L Anion Gap 8 (3-11) BUN 21 (6-23) mg/dl Creatinine 0.82 (0.6-1.4) mg/dl Est Cr Clr Drug Dosing 73.6 ml/min Est GFR ( Amer) 94.1 ml/min Est GFR (Non-Af Amer) 81.2 ml/min BUN/Creatinine Ratio 25.6 H (10-20) Glucose 102 H (70-99(Fasting)) mg/dl Calcium 9.2 (8.5-10.1) mg/dl Phosphorus 3.5 (2.5-4.9) mg/dl Magnesium 2.0 (1.7-2.4) mg/dl Medications Administered Current Inpatient Medications Acetaminophen (Acetaminophen 325 Mg Tab) 650 mg PO Q4H PRN PRN Reason: pain/fever Stop: 07/26/22 13:15 Albuterol (Albut/Ipratrop 3mg/0.5mg Neb 3 Ml Vial) 3 ml NEB QIDR [facility]; Protocol Stop: 07/26/22 14:59 Last Admin: 06/28/22 11:10 Dose: 3 ml Ascorbic Acid (Ascorbic Acid 500 Mg Tab) 500 mg PO QAM [facility] Stop: 07/27/22 08:59 Last Admin: 06/28/22 07:56 Dose: 500 mg Benzonatate (Benzonatate 100 Mg Capsule) 100 mg PO TID [facility] Stop: 07/28/22 13:59 Dextromethorphan Polymer Complex (Dextromethorphan Polymr Complx 30 Mg/5 Ml Udp) 30 mg PO Q8H PRN PRN Reason: Cough Stop: 07/26/22 13:15 Doxycycline Hyclate (Doxycycline Hyclate 100 Mg Cap) 100 mg PO BID [facility] Stop: 07/03/22 20:59 Last Admin: 06/28/22 07:55 Dose: 100 mg Enoxaparin Sodium (Enoxaparin Inj 40 Mg/0.4 Ml Syr) 40 mg SQ Q24H [facility] Stop: 07/26/22 15:29 Last Admin: 06/27/22 15:12 Dose: 40 mg Guaifenesin (Guaifenesin 600 Mg Tabcr) 600 mg PO Q12 [facility] Stop: 07/27/22 20:59 Last Admin: 06/28/22 07:55 Dose: 600 mg Methylprednisolone 40 mg/ (Syringe) 0.64 mls @ 1.5 mls/min IV Q8H [facility] Stop: 07/26/22 20:59 Last Admin: 06/28/22 05:42 Dose: 1.5 mls/min Menthol (Cough Drop (Sugar Free) Julian 24 Julian/1 Box) 1 julian BUCCAL PRN PRN PRN Reason: Cough Stop: 07/28/22 11:56 Multivitamins (Multivitamin Tab) 1 tab PO DAILY [facility] Stop: 07/27/22 08:59 Last Admin: 06/28/22 07:56 Dose: 1 tab Multivitamins/Minerals (Calcium 600mg + Vit D 400 Iu Tab) 1 tab PO DAILY [facility] Stop: 07/27/22 08:59 Last Admin: 06/28/22 07:56 Dose: 1 tab Ondansetron HCl (Ondansetron Inj 2 Mg/Ml 2 Ml Vial) 4 mg IV Q6H PRN PRN Reason: Nausea Stop: 07/26/22 13:15 Phenobarbital (Phenobarbital 30 Mg Tab) 60 mg PO BID [facility] Stop: 07/26/22 20:59 Last Admin: 06/28/22 08:01 Dose: 60 mg Polyethylene Glycol (Polyethylene (Miralax) 17 Gm Pack) 17 gm PO DAILY PRN PRN Reason: Constipation Stop: 07/26/22 13:15 Pravastatin Sodium (Pravastatin Sod 20 Mg Tab) 20 mg PO DAILY [facility] Stop: 07/27/22 08:59 Last Admin: 06/28/22 07:56 Dose: 20 mg
[2022-06-28] MEDS: BENZONATATE 100 MG CAPSULE PO SCH ×2 (14:13→21:10)
[2022-06-28] MEDS: ENOXAPARIN INJ 40 MG/0.4 ML SYR SQ SCH (15:45)
[2022-06-29] MEDS: methylPREDNISolone 40 MG in SYRINGE 0 ML IV SCH ×3 (05:06→20:00)
[2022-06-29] MEDS: ALBUT/IPRATROP 3MG/0.5MG NEB 3 ML VIAL NEB SCH ×6 (05:44→19:17)
[2022-06-29 06:51] LABS: Hematocrit (blood only) 43.1 % (40.1-51.0); Hemoglobin 14.5 g/dl (14.0-18.0); Mean Corpuscular Hemoglobin 28.7 pg (25.0-34.0); Mean Corpuscular Hgb Conc 33.6 g/dL (32.0-36.0); Mean Corpuscular Volume 85.3 fL (80.0-100.0); Mean Platelet Volume 8.7 fL (9.4-12.4); Platelet Count 277 K/uL (130-400); RDW Coefficient of Variation 13.8 % (11.5-14.5); RDW Standard Deviation 42.6 fL (36.4-46.3); Red Blood Count 5.05 M/uL (4.63-6.08); White Blood Count 11.29 K/ul (4.8-10.8)
[2022-06-29 07:33] LABS: BUN Creatinine Ratio 22.6 (10-20); Creatinine Clr Calc Pharmacy 71.9 ml/min; Est GFR (African American) 93.2 ml/min; Est GFR (Non-African American) 80.4 ml/min; Phosphorus 4.6 mg/dl (2.5-4.9); Potassium 4.3 mmol/L (3.5-5.1)
[2022-06-29] MEDS: CALCIUM 600MG + VIT D 400 IU TAB PO SCH (08:06)
[2022-06-29] MEDS: guaiFENesin 600 MG TABCR PO SCH ×2 (08:06→20:01)
[2022-06-29] MEDS: ASCORBIC ACID 500 MG TAB PO SCH (08:06)
[2022-06-29] MEDS: BENZONATATE 100 MG CAPSULE PO SCH ×3 (08:06→20:00)
[2022-06-29] MEDS: DOXYCYCLINE HYCLATE 100 MG CAP PO SCH ×2 (08:06→20:01)
[2022-06-29] MEDS: PRAVASTATIN SOD 20 MG TAB PO SCH (08:07)
[2022-06-29] MEDS: MULTIVITAMIN TAB PO SCH (08:07)
[2022-06-29] MEDS: PHENobarbitaL 30 MG TAB PO SCH ×2 (08:10→20:00)
--- NOTE | 2022-06-29 09:16 | Hospitalist Progress Note ---
Date of Service June 29, 2022 Assessment & Plan (1) COPD exacerbation: Plan: Acute COPD Exacerbation CXR: No acute cardiopulmonary findings. 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 Currently sitting up in bed, in no acute distress Continues to have cough, breathing seems to be somewhat improved Currently on room air Denies fevers, chills, chest pain, abdominal pain, nausea vomiting Review of Systems Review of Systems: All systems reviewed & are unremarkable except as noted in Subjective Physical Exam Physical Exam: General Appearance:WD/WN elderly M in no apparent distress Head: normocephalic, Atraumatic Eyes: normal inspection, EOMI Neck: supple Respiratory/Chest: improved air movement, + exp. wheezing, No accessory muscle use Cardiovascular: S1, S2, No murmur Abdomen/GI:Soft, Non tender, Bowel sounds present Extremities/Musculoskeletal:normal inspection, no edema Neurologic/Psych:AAOX3, grossly no focal neurological deficits Skin: normal color, warm Results & Data Results & Data ([facility]) Vital Signs (Past 12 Hours) Vital Signs Temp Pulse Pulse Resp BP BP Pulse Ox 06/29/22 07:43 36.3 C L 84 18 148/62 H 91 06/29/22 07:00 83 06/29/22 05:46 85 18 92 06/29/22 03:41 36.6 C 82 17 161/73 H 96 06/29/22 00:42 79 06/28/22 22:57 06/28/22 22:25 36.5 C 84 18 165/80 H 93 O2 Del Method 06/29/22 07:43 06/29/22 07:00 06/29/22 05:46 Room Air 06/29/22 03:41 Room Air 06/29/22 00:42 06/28/22 22:57 Room Air 06/28/22 22:25 Room Air Laboratory Results 06/29/22 06/29/22 Range/Units 06:19 06:19 WBC 11.29 H (4.8-10.8) K/ul RBC 5.05 (4.63-6.08) M/uL Hgb 14.5 (14.0-18.0) g/dl Hct 43.1 (40.1-51.0) % MCV 85.3 (80.0-100.0) fL MCH 28.7 (25.0-34.0) pg MCHC 33.6 (32.0-36.0) g/dL RDW Std Deviation 42.6 (36.4-46.3) fL RDW Coeff of Radha 13.8 (11.5-14.5) % Plt Count 277 (130-400) K/uL MPV 8.7 L (9.4-12.4) fL Sodium 134 L (136-145) mmol/L Potassium 4.3 (3.5-5.1) mmol/L Chloride 99 (98-107) mmol/L Carbon Dioxide 28 (21-32) mmol/L Anion Gap 7 (3-11) BUN 19 (6-23) mg/dl Creatinine 0.84 (0.6-1.4) mg/dl Est Cr Clr Drug Dosing 71.9 ml/min Est GFR ( Amer) 93.2 ml/min Est GFR (Non-Af Amer) 80.4 ml/min BUN/Creatinine Ratio 22.6 H (10-20) Glucose 102 H (70-99(Fasting)) mg/dl Calcium 9.0 (8.5-10.1) mg/dl Phosphorus 4.6 D (2.5-4.9) mg/dl Magnesium 2.0 (1.7-2.4) mg/dl Medications Administered Current Inpatient Medications Acetaminophen (Acetaminophen 325 Mg Tab) 650 mg PO Q4H PRN PRN Reason: pain/fever Stop: 07/26/22 13:15 Albuterol (Albut/Ipratrop 3mg/0.5mg Neb 3 Ml Vial) 3 ml NEB QIDR [facility]; Protocol Stop: 07/26/22 14:59 Last Admin: 06/29/22 07:59 Dose: Not Given Ascorbic Acid (Ascorbic Acid 500 Mg Tab) [facility] Stop: 07/27/22 08:59 Last Admin: 06/29/22 08:06 Dose: 500 mg Benzonatate (Benzonatate 100 Mg Capsule) 100 mg PO TID [facility] Stop: 07/28/22 13:59 Last Admin: 06/29/22 08:06 Dose: 100 mg Dextromethorphan Polymer Complex (Dextromethorphan Polymr Complx 30 Mg/5 Ml Udp) 30 mg PO Q8H PRN PRN Reason: Cough Stop: 07/26/22 13:15 Doxycycline Hyclate (Doxycycline Hyclate 100 Mg Cap) 100 mg PO BID [facility] Stop: 07/03/22 20:59 Last Admin: 06/29/22 08:06 Dose: 100 mg Enoxaparin Sodium (Enoxaparin Inj 40 Mg/0.4 Ml Syr) 40 mg SQ Q24H [facility] Stop: 07/26/22 15:29 Last Admin: 06/28/22 15:45 Dose: 40 mg Guaifenesin (Guaifenesin 600 Mg Tabcr) 600 mg PO Q12 [facility] Stop: 07/27/22 20:59 Last Admin: 06/29/22 08:06 Dose: 600 mg Methylprednisolone 40 mg/ (Syringe) 0.64 mls @ 1.5 mls/min IV Q8H [facility] Stop: 07/26/22 20:59 Last Admin: 06/29/22 05:06 Dose: 1.5 mls/min Menthol (Cough Drop (Sugar Free) Julian 24 Julian/1 Box) 1 julian BUCCAL PRN PRN PRN Reason: Cough Stop: 07/28/22 11:56 Multivitamins (Multivitamin Tab) 1 tab PO DAILY [facility] Stop: 07/27/22 08:59 Last Admin: 06/29/22 08:07 Dose: 1 tab Multivitamins/Minerals (Calcium 600mg + Vit D 400 Iu Tab) 1 tab PO DAILY [facility] Stop: 07/27/22 08:59 Last Admin: 06/29/22 08:06 Dose: 1 tab Ondansetron HCl (Ondansetron Inj 2 Mg/Ml 2 Ml Vial) 4 mg IV Q6H PRN PRN Reason: Nausea Stop: 07/26/22 13:15 Phenobarbital (Phenobarbital 30 Mg Tab) 60 mg PO BID [facility] Stop: 07/26/22 20:59 Last Admin: 06/29/22 08:10 Dose: 60 mg Polyethylene Glycol (Polyethylene (Miralax) 17 Gm Pack) 17 gm PO DAILY PRN PRN Reason: Constipation Stop: 07/26/22 13:15 Last Admin: 06/29/22 08:20 Dose: 17 gm Pravastatin Sodium (Pravastatin Sod 20 Mg Tab) 20 mg PO DAILY [facility] Stop: 07/27/22 08:59 Last Admin: 06/29/22 08:07 Dose: 20 mg
[2022-06-29] MEDS: COUGH DROP (SUGAR FREE) LOZ 24 LOZ/1 BOX BUCCAL PRN ×2 (09:53→20:02)
[2022-06-29] MEDS: ENOXAPARIN INJ 40 MG/0.4 ML SYR SQ SCH (15:45)
[2022-06-29] MEDS: SENNA 8.6 MG TAB PO SCH (17:54)
[2022-06-30] MEDS: methylPREDNISolone 40 MG in SYRINGE 0 ML IV SCH ×3 (04:48→20:18)
[2022-06-30] MEDS: ALBUT/IPRATROP 3MG/0.5MG NEB 3 ML VIAL NEB SCH ×4 (05:56→19:33)
[2022-06-30] MEDS: ASCORBIC ACID 500 MG TAB PO SCH (08:05)
[2022-06-30] MEDS: BENZONATATE 100 MG CAPSULE PO SCH ×3 (08:06→20:18)
[2022-06-30] MEDS: guaiFENesin 600 MG TABCR PO SCH ×2 (08:06→20:18)
[2022-06-30] MEDS: CALCIUM 600MG + VIT D 400 IU TAB PO SCH (08:06)
[2022-06-30] MEDS: DOXYCYCLINE HYCLATE 100 MG CAP PO SCH ×2 (08:06→20:18)
[2022-06-30] MEDS: SENNA 8.6 MG TAB PO SCH (08:06)
[2022-06-30] MEDS: MULTIVITAMIN TAB PO SCH (08:06)
[2022-06-30] MEDS: PRAVASTATIN SOD 20 MG TAB PO SCH (08:06)
[2022-06-30] MEDS: PHENobarbitaL 30 MG TAB PO SCH ×2 (08:11→20:27)
[2022-06-30 08:30] LABS: BUN Creatinine Ratio 27.3 (10-20); Calcium 8.7 mg/dl (8.5-10.1); Creatinine Clr Calc Pharmacy 78.4 ml/min; Est GFR (African American) 96.6 ml/min; Est GFR (Non-African American) 83.3 ml/min; Magnesium 2.1 mg/dl (1.7-2.4); Potassium 4.3 mmol/L (3.5-5.1)
--- NOTE | 2022-06-30 08:52 | Hospitalist Progress Note ---
Date of Service June 30, 2022 Assessment & Plan (1) COPD exacerbation: Plan: Acute COPD Exacerbation CXR: No acute cardiopulmonary findings. 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 Currently sitting up in bed, in no acute distress Continues to have cough, breathing seems to be somewhat improved Currently on room air Denies fevers, chills, chest pain, abdominal pain, nausea vomiting Review of Systems Review of Systems: All systems reviewed & are unremarkable except as noted in Subjective Physical Exam Physical Exam: General Appearance:WD/WN elderly M in no apparent distress Head: normocephalic, Atraumatic Eyes: normal inspection, EOMI Neck: supple Respiratory/Chest: improved air movement, + exp. wheezing, No accessory muscle use Cardiovascular: S1, S2, No murmur Abdomen/GI:Soft, Non tender, Bowel sounds present Extremities/Musculoskeletal:normal inspection, no edema Neurologic/Psych:AAOX3, grossly no focal neurological deficits Skin: normal color, warm Results & Data Results & Data ([facility]) Vital Signs (Past 12 Hours) Vital Signs Temp Pulse Pulse Resp BP BP Pulse Ox 06/30/22 07:00 36.7 C 80 20 166/68 H 90 06/30/22 07:03 75 06/30/22 05:56 84 18 93 06/30/22 03:57 83 06/30/22 03:44 36.6 C 78 18 157/79 H 93 06/29/22 23:07 36.7 C 82 18 164/79 H 90 06/29/22 21:55 O2 Del Method 06/30/22 07:00 Room Air 06/30/22 07:03 06/30/22 05:56 Room Air 06/30/22 03:57 06/30/22 03:44 Room Air 06/29/22 23:07 Room Air 06/29/22 21:55 Room Air Laboratory Results 06/30/22 Range/Units 07:30 Sodium 132 L (136-145) mmol/L Potassium 4.3 (3.5-5.1) mmol/L Chloride 99 (98-107) mmol/L Carbon Dioxide 28 (21-32) mmol/L Anion Gap 5 (3-11) BUN 21 (6-23) mg/dl Creatinine 0.77 (0.6-1.4) mg/dl Est Cr Clr Drug Dosing 78.4 ml/min Est GFR ( Amer) 96.6 ml/min Est GFR (Non-Af Amer) 83.3 ml/min BUN/Creatinine Ratio 27.3 H (10-20) Glucose 99 (70-99(Fasting)) mg/dl Calcium 8.7 (8.5-10.1) mg/dl Magnesium 2.1 (1.7-2.4) mg/dl Medications Administered Current Inpatient Medications Acetaminophen (Acetaminophen 325 Mg Tab) 650 mg PO Q4H PRN PRN Reason: pain/fever Stop: 07/26/22 13:15 Albuterol (Albut/Ipratrop 3mg/0.5mg Neb 3 Ml Vial) 3 ml NEB QIDR [facility]; Protocol Stop: 07/26/22 14:59 Last Admin: 06/30/22 05:56 Dose: 3 ml Ascorbic Acid (Ascorbic Acid 500 Mg Tab) 500 mg PO QAM [facility] Stop: 07/27/22 08:59 Last Admin: 06/30/22 08:05 Dose: 500 mg Benzonatate (Benzonatate 100 Mg Capsule) 100 mg PO TID [facility] Stop: 07/28/22 13:59 Last Admin: 06/30/22 08:06 Dose: 100 mg Dextromethorphan Polymer Complex (Dextromethorphan Polymr Complx 30 Mg/5 Ml Udp) 30 mg PO Q8H PRN PRN Reason: Cough Stop: 07/26/22 13:15 Doxycycline Hyclate (Doxycycline Hyclate 100 Mg Cap) 100 mg PO BID [facility] Stop: 07/03/22 20:59 Last Admin: 06/30/22 08:06 Dose: 100 mg Enoxaparin Sodium (Enoxaparin Inj 40 Mg/0.4 Ml Syr) 40 mg SQ Q24H [facility] Stop: 07/26/22 15:29 Last Admin: 06/29/22 15:45 Dose: 40 mg Guaifenesin (Guaifenesin 600 Mg Tabcr) 600 mg PO Q12 [facility] Stop: 07/27/22 20:59 Last Admin: 06/30/22 08:06 Dose: 600 mg Methylprednisolone 40 mg/ (Syringe) 0.64 mls @ 1.5 mls/min IV Q8H [facility] Stop: 07/26/22 20:59 Last Admin: 06/30/22 04:48 Dose: 1.5 mls/min Menthol (Cough Drop (Sugar Free) Julian 24 Julian/1 Box) 1 julian BUCCAL PRN PRN PRN Reason: Cough Stop: 07/28/22 11:56 Last Admin: 06/29/22 20:02 Dose: 1 julian Multivitamins (Multivitamin Tab) 1 tab PO DAILY [facility] Stop: 07/27/22 08:59 Last Admin: 06/30/22 08:06 Dose: 1 tab Multivitamins/Minerals (Calcium 600mg + Vit D 400 Iu Tab) 1 tab PO DAILY [facility] Stop: 07/27/22 08:59 Last Admin: 06/30/22 08:06 Dose: 1 tab Ondansetron HCl (Ondansetron Inj 2 Mg/Ml 2 Ml Vial) 4 mg IV Q6H PRN PRN Reason: Nausea Stop: 07/26/22 13:15 Phenobarbital (Phenobarbital 30 Mg Tab) 60 mg PO BID [facility] Stop: 07/26/22 20:59 Last Admin: 06/30/22 08:11 Dose: 60 mg Polyethylene Glycol (Polyethylene (Miralax) 17 Gm Pack) 17 gm PO DAILY PRN PRN Reason: Constipation Stop: 07/26/22 13:15 Last Admin: 06/29/22 08:20 Dose: 17 gm Pravastatin Sodium (Pravastatin Sod 20 Mg Tab) 20 mg PO DAILY [facility] Stop: 07/27/22 08:59 Last Admin: 06/30/22 08:06 Dose: 20 mg Sennosides (Senna 8.6 Mg Tab) 8.6 mg PO QAM [facility] Stop: 07/29/22 16:59 Last Admin: 06/30/22 08:06 Dose: 8.6 mg
[2022-06-30] MEDS: ENOXAPARIN INJ 40 MG/0.4 ML SYR SQ SCH (15:38)
[2022-07-01] MEDS: methylPREDNISolone 40 MG in SYRINGE 0 ML IV SCH ×2 (05:53→13:38)
[2022-07-01 06:48] LABS: BUN Creatinine Ratio 26.7 (10-20); Calcium 8.5 mg/dl (8.5-10.1); Creatinine Clr Calc Pharmacy 70.2 ml/min; Est GFR (African American) 92.3 ml/min; Est GFR (Non-African American) 79.6 ml/min; Potassium 4.4 mmol/L (3.5-5.1)
[2022-07-01] MEDS: ALBUT/IPRATROP 3MG/0.5MG NEB 3 ML VIAL NEB SCH ×3 (07:17→15:21)
--- NOTE | 2022-07-01 08:00 | Hospitalist Progress Note ---
Date of Service July 01, 2022 Assessment & Plan (1) COPD exacerbation: Plan: Acute COPD Exacerbation CXR: No acute cardiopulmonary findings. Negative COVID screen Continue Doxycycline Started on IV solumedrol, bronchodilators Saturating well on room air Biofire negative Hold home prednisone while on IV steroids Pulmonary hygiene Mild leukocytosis Likely due to prednisone No other obvious signs of infection Continue Doxy as above Polymyalgia rheumatica on chronic steroids seizure disorder Continue phenobarbital Hyperlipidemia on Statin DVT prophylaxis Lovenox SQ CODE STATUS Full code Admission and Anticipated Discharge Date Admission Date: June 26, 2022 Subjective Pt seen in follow up of COPD exacerbation Previously recently admitted. Currently sitting up in bed, in no acute distress Patient feels much improved, continues to have cough, but much less now. He is interesting in discharge. Currently on room air Denies fevers, chills, chest pain, abdominal pain, nausea vomiting Review of Systems Review of Systems: All systems reviewed & are unremarkable except as noted in Subjective Physical Exam Physical Exam: General Appearance:WD/WN elderly M in no apparent distress Head: normocephalic, Atraumatic Eyes: normal inspection, EOMI Neck: supple Respiratory/Chest: improved air movement, + some exp. wheezing, No accessory muscle use Cardiovascular: S1, S2, No murmur Abdomen/GI:Soft, Non tender, Bowel sounds present Extremities/Musculoskeletal:normal inspection, no edema Neurologic/Psych:AAOX3, grossly no focal neurological deficits Skin: normal color, warm Results & Data Results & Data ([facility]) Vital Signs (Past 12 Hours) Vital Signs Temp Pulse Pulse Resp BP Pulse Ox O2 Del Method 07/01/22 07:17 78 20 93 Room Air 07/01/22 03:22 36.8 C 76 18 148/69 H 92 Room Air 06/30/22 23:52 89 06/30/22 23:02 36.5 C 80 18 146/72 H 92 Room Air Laboratory Results 07/01/22 06/30/22 Range/Units 05:32 07:30 Sodium 133 L 132 L (136-145) mmol/L Potassium 4.4 4.3 (3.5-5.1) mmol/L Chloride 98 99 (98-107) mmol/L Carbon Dioxide 29 28 (21-32) mmol/L Anion Gap 6 5 (3-11) BUN 23 21 (6-23) mg/dl Creatinine 0.86 0.77 (0.6-1.4) mg/dl Est Cr Clr Drug Dosing 70.2 78.4 ml/min Est GFR ( Amer) 92.3 96.6 ml/min Est GFR (Non-Af Amer) 79.6 83.3 ml/min BUN/Creatinine Ratio 26.7 H 27.3 H (10-20) Glucose 94 99 (70-99(Fasting)) mg/dl Calcium 8.5 8.7 (8.5-10.1) mg/dl Magnesium 2.0 2.1 (1.7-2.4) mg/dl Medications Administered Current Inpatient Medications Acetaminophen (Acetaminophen 325 Mg Tab) 650 mg PO Q4H PRN PRN Reason: pain/fever Stop: 07/26/22 13:15 Albuterol (Albut/Ipratrop 3mg/0.5mg Neb 3 Ml Vial) 3 ml NEB QIDR [facility]; Protocol Stop: 07/26/22 14:59 Last Admin: 07/01/22 07:17 Dose: 3 ml Ascorbic Acid (Ascorbic Acid 500 Mg Tab) 500 mg PO QAM [facility] Stop: 07/27/22 08:59 Last Admin: 06/30/22 08:05 Dose: 500 mg Benzonatate (Benzonatate 100 Mg Capsule) 100 mg PO TID [facility] Stop: 07/28/22 13:59 Last Admin: 06/30/22 20:18 Dose: 100 mg Dextromethorphan Polymer Complex (Dextromethorphan Polymr Complx 30 Mg/5 Ml Udp) 30 mg PO Q8H PRN PRN Reason: Cough Stop: 07/26/22 13:15 Doxycycline Hyclate (Doxycycline Hyclate 100 Mg Cap) 100 mg PO BID [facility] Stop: 07/03/22 20:59 Last Admin: 06/30/22 20:18 Dose: 100 mg Enoxaparin Sodium (Enoxaparin Inj 40 Mg/0.4 Ml Syr) 40 mg SQ Q24H [facility] Stop: 07/26/22 15:29 Last Admin: 06/30/22 15:38 Dose: 40 mg Guaifenesin (Guaifenesin 600 Mg Tabcr) 600 mg PO Q12 [facility] Stop: 07/27/22 20:59 Last Admin: 06/30/22 20:18 Dose: 600 mg Methylprednisolone 40 mg/ (Syringe) 0.64 mls @ 1.5 mls/min IV Q8H [facility] Stop: 07/26/22 20:59 Last Admin: 07/01/22 05:53 Dose: 1.5 mls/min Menthol (Cough Drop (Sugar Free) Julian 24 Julian/1 Box) 1 julian BUCCAL PRN PRN PRN Reason: Cough Stop: 07/28/22 11:56 Last Admin: 06/29/22 20:02 Dose: 1 julian Multivitamins (Multivitamin Tab) 1 tab PO DAILY [facility] Stop: 07/27/22 08:59 Last Admin: 06/30/22 08:06 Dose: 1 tab Multivitamins/Minerals (Calcium 600mg + Vit D 400 Iu Tab) 1 tab PO DAILY [facility] Stop: 07/27/22 08:59 Last Admin: 06/30/22 08:06 Dose: 1 tab Ondansetron HCl (Ondansetron Inj 2 Mg/Ml 2 Ml Vial) 4 mg IV Q6H PRN PRN Reason: Nausea Stop: 07/26/22 13:15 Phenobarbital (Phenobarbital 30 Mg Tab) 60 mg PO BID [facility] Stop: 07/26/22 20:59 Last Admin: 06/30/22 20:27 Dose: 60 mg Polyethylene Glycol (Polyethylene (Miralax) 17 Gm Pack) 17 gm PO DAILY PRN PRN Reason: Constipation Stop: 07/26/22 13:15 Last Admin: 06/29/22 08:20 Dose: 17 gm Pravastatin Sodium (Pravastatin Sod 20 Mg Tab) 20 mg PO DAILY [facility] Stop: 07/27/22 08:59 Last Admin: 06/30/22 08:06 Dose: 20 mg Sennosides (Senna 8.6 Mg Tab) 8.6 mg PO QAM [facility] Stop: 07/29/22 16:59 Last Admin: 06/30/22 08:06 Dose: 8.6 mg
[2022-07-01] MEDS: MULTIVITAMIN TAB PO SCH (08:11)
[2022-07-01] MEDS: ASCORBIC ACID 500 MG TAB PO SCH (08:12)
[2022-07-01] MEDS: CALCIUM 600MG + VIT D 400 IU TAB PO SCH (08:12)
[2022-07-01] MEDS: PRAVASTATIN SOD 20 MG TAB PO SCH (08:12)
[2022-07-01] MEDS: SENNA 8.6 MG TAB PO SCH (08:12)
[2022-07-01] MEDS: guaiFENesin 600 MG TABCR PO SCH (08:12)
[2022-07-01] MEDS: BENZONATATE 100 MG CAPSULE PO SCH ×2 (08:12→13:37)
[2022-07-01] MEDS: DOXYCYCLINE HYCLATE 100 MG CAP PO SCH (08:12)
[2022-07-01] MEDS: PHENobarbitaL 30 MG TAB PO SCH (08:18)
--- NOTE | 2022-07-01 10:40 | Discharge Summary ---
Date of Service July 01, 2022 Admission HPI Per Admitting Provider Patient is an 82-year-old male with history of COPD, polymyalgia rheumatica on chronic steroids, seizure disorder, BPH, hyperlipidemia, lumbar spinal stenosis arctic valve insufficiency and other medical problems presents with history of worsening cough, shortness of breath and wheezing his last few days. Patient was admitted 3 days ago for COPD exacerbation, complicated bronchitis and was discharged on 06/24/22 from [facility]. Patient follows with [facility] pulmonology as outpatient. Despite continuing doxycycline, prednisone and his home inhalers patient's symptoms continue to worsen. Patient also states having dyspnea on exertion, feels very tired. He admits to have some chest discomfort associated with cough. He has clear sputum and denies any hemoptysis. He quit smoking many years ago. Uses CPAP at bedtime for obstructive sleep apnea. Denies any history of palpitations, dizziness, pedal edema, fever, chills, fall, headache, change in vision, bowel/bladder incontinence, nausea, vomiting, abdominal pain, blood in stools, diarrhea, dysuria, hematuria, recent travel, sick contact. Admission Exam Per Admitting Provider General Appearance:Moderately built and nourished, no apparent distress Head: normocephalic, Atraumatic Eyes: normal inspection, EOMI Neck: supple, Trachea midline Respiratory/Chest: Decreased breath sounds, scattered wheezes, No accessory muscle use Cardiovascular: S1, S2, No murmur Abdomen/GI:Soft, Non tender, Bowel sounds present Extremities/Musculoskeletal:normal inspection, no edema Neurologic/Psych:AAOX3, grossly no focal neurological deficits Skin: normal color, warm Principal Diagnosis COPD exacerbation Discharge Exam General Appearance:WD/WN elderly M in no apparent distress Head: normocephalic, Atraumatic Eyes: normal inspection, EOMI Neck: supple Respiratory/Chest: improved air movement, + some exp. wheezing, No accessory muscle use Cardiovascular: S1, S2, No murmur Abdomen/GI:Soft, Non tender, Bowel sounds present Extremities/Musculoskeletal:normal inspection, no edema Neurologic/Psych:AAOX3, grossly no focal neurological deficits Skin: normal color, warm Discharge Data Allergies Allergy/AdvReac Type Severity Reaction Status Date / Time lamotrigine Allergy Unknown pruritus, Verified 06/23/22 00:26 rash oxycodone AdvReac Unknown "strange" Verified 06/23/22 00:26 feeling Consultations 06/26/22 11:19 ED Decision to Admit Stat Hospital Course (1) COPD exacerbation: Acute COPD Exacerbation CXR: No acute cardiopulmonary findings. Negative COVID screen Continued Doxycycline while inpt Started on IV solumedrol, bronchodilators Saturating well on room air Biofire negative Hold home prednisone while on IV steroids Pulmonary hygiene DC - cont. 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 seizure disorder Continue phenobarbital Hyperlipidemia on Statin Total Time Total Time Spent Total Time Spent (In Minutes): 40 Discharge Plan Discharge Items Patient Disposition: Home - Self-Care Reason For Visit: COPD EXACERBATION Discharge Diagnosis: COPD exacerbation Activity: Per Instructions section Non-emergency contact: Primary Care Provider and Manager Behavior Call non-emergency contact if: you have any medication questions and your symptoms worsen Follow-up/Referrals: Travis Acuna MD [Primary Care Provider] - (Date & Time 07/07/2022 12:00 PM Provider Travis Acuna MD Department General Internal Medicine [facility] ) Jez Brooks MD [Outside Practitioners] - (Date & Time 07/16/2022 11:00 AM Provider Jez Brooks MD Department Pulmonary Medicine, [facility] ) Diet: Heart Healthy Diet Texture: Easy to Chew Addtl Attending Provider Instructions: Follow-up with your primary care doctor and wet primer powder blender. The appointment with your primary care doctor was scheduled for you for July 07, and your pulmonology appointment is scheduled for July 16. Continue using Mucinex and Tessalon Perles for cough. Finish the prednisone taper that was already prescribed for you previously. Nebulizing medications are sent to your pharmacy, you should be able to use that now as needed, in addition to your home meds. Pending Studies at Discharge: No Stand-Alone Forms: My [employer], Smoking Cessation Medications and DC Order Prescriptions: New ipratropium-albuterol 0.5 mg-3 mg(2.5 mg base)/3 mL Solution For Nebulization 3 ml NEB QID PRN (Reason: shortness of breath or wheezing) Qty: 90 0RF benzonatate 100 mg Capsule 100 mg PO TID 5 Days Qty: 15 0RF guaifenesin [Mucinex] 600 mg Tablet Extended Release 12hr 600 mg PO Q12 5 Days Qty: 10 0RF Continued multivitamin Tablet 1 tab PO QPM phenobarbital 60 mg Tablet 60 mg PO BID naproxen sodium [Aleve] 220 mg Capsule 440 mg PO BID PRN (Reason: Pain) ascorbic acid (vitamin C) 500 mg Capsule 500 mg PO QAM Spiriva with HandiHaler 18 mcg Capsule, W/Inhalation Device 1 cap INHALATION QAM valacyclovir 1 gram Tablet 1,000 mg PO UD PRN (Reason: Cold Sores) Calcium 600 + D(3) 600 mg calcium- 200 unit Capsule 1 cap PO QPM fluocinonide 0.05 % Cream 1 applic TOPICAL BID PRN (Reason: Rash) glucosamine-chondroitin 500-400 mg Tablet 1 tab PO BID pravastatin 20 mg tablet 20 mg PO DAILY prednisone 1 mg tablet 2 mg PO DAILY alendronate 70 mg Tablet 70 mg PO WK Rx Instructions: TAKE THIS MED EVERY THURSDAY guaifenesin [Mucinex] 600 mg Tablet Extended Release 12hr 600 mg PO Q12 5 Days Qty: 10 0RF albuterol sulfate [ProAir HFA] 90 mcg/actuation HFA aerosol inhaler 2 inh inhalation QID PRN (Reason: shortness of breath or wheezing) Qty: 8.5 0RF prednisone 20 mg tablet 40 mg PO DAILY 5 Days Qty: 10 0RF Discontinued doxycycline hyclate 100 mg Capsule 100 mg PO Q12 6 Days Qty: 12 0RF Discharge Orders: Discharge Order (Routine); Ordered 07/01/22 Ordered By: Lonnie Lagos Admission Data Admit Date/Time: 06/26/22 11:31 Attending Provider: Lonnie Lagos Admit Provider: Vinh Zapata Primary Care Provider: Travis Acuna Other Providers: Vinh Zapata Other Interventions: Discharge Summary Assessment (RN) Last Done: 07/01/22 11:03
== END 2022-07-01 15:42 | disposition home or self-care (01) | DRG 192 ==
LOC: ED 08:41 → SUATTDRO 11:31 → EDINP 11:31 → 2W 20:53

== ENCOUNTER 2023-04-03 21:32 | Inpatient (IN) ==
[2023-04-03 23:06] LABS: Basophils # (auto) 0.02 K/uL (0-0.2); Basophils % (auto) 0.2 %; Eosinophils % (auto) 1.8 %; Hematocrit (blood only) 40.6 % (42.0-52.0); Hemoglobin 13.9 g/dl (14.0-18.0); Immature Granulocytes # (auto) 0.05 K/uL (0.01-0.20); Immature Granulocytes % (auto) 0.4 %; Lymphocytes # (auto) 1.28 K/uL (1.2-3.4); Lymphocytes % (auto) 11.3 %; Mean Corpuscular Hemoglobin 29.1 pg (25.0-34.0); Mean Corpuscular Hgb Conc 34.2 g/dL (32.0-36.0); Mean Corpuscular Volume 85.1 fL (80.0-100.0); Mean Platelet Volume 9.1 fL (9.4-12.4); Monocytes # (auto) 1.14 K/uL (0.11-0.59); Monocytes % (auto) 10.1 %; Neutrophils # (auto) 8.62 K/uL (1.40-6.50); Neutrophils % (auto) 76.2 %; Platelet Count 241 K/uL (130-400); RDW Coefficient of Variation 14.1 % (11.5-14.5); RDW Standard Deviation 43.5 fL (36.4-46.3); Red Blood Count 4.77 M/uL (4.70-6.10); White Blood Count 11.31 K/ul (4.8-10.8)
[2023-04-03 23:07] LABS: Albumin Globulin Ratio 1.5 (0.9-2); Albumin Level 3.8 gm/dl (3.4-5.0); BUN Creatinine Ratio 18.8 (10-20); Bilirubin,Total 0.5 mg/dl (0.2-1.0); Calcium 8.3 mg/dl (8.6-10.3); Creatinine Clr Calc Pharmacy 87.5 ml/min; Est GFR (Non-African American) 87.2 ml/min; Globulin 2.6 gm/dl (2.5-4.0); Potassium 3.9 mmol/L (3.5-5.1); Total Protein 6.4 gm/dl (6.0-8.3)
[2023-04-03] MEDS ORDERED: ONDANSETRON INJ 2 MG/ML 2 ML VIAL IV STA (23:12)
[2023-04-03] MEDS ORDERED: HYDROmorphone INJ 0.5 MG/0.5 ML SYR IV PRN (23:12)
--- NOTE | 2023-04-03 23:22 | Emergency Department Note ---
Impression & Plan Pancreatitis ED Provider Note INFORMANT: Patient and ED PROVIDER(S): Ney Aguilera MD CHIEF COMPLAINT: Abdominal pain PLAN: Disposition: Admitted Condition: Good Outpatient prescription management: none Referral: None MEDICAL DECISION MAKING: patient presented because of abdominal pain. Work-up was initiated. He was found to have a slight leukocytosis. Lipase was mildly elevated Concerning for pancreatitis. Urinalysis negative. Patient did receive IV Zofran and Dilaudid for symptom control. This did help. He underwent CT imaging. There was concerns for pancreatitis by CT imaging as well. Patient was started on lactated Ringer's for hydration. Discussed further management in the hospital. Patient was in agreement. Consultation was made with Dr. Rod Camacho, [facility] hospitalist service. Case discussed and diagnostics were reviewed. Patient was evaluated in the ER and admitted for further management. Discussed with soda fountain manager After review of the information above and other included data, I feel the patient is admission. Triage Nursing notes reviewed and agree them. Vital Signs: reviewed and remarkable for no significant abnormalities Prior /Outside records reviewed: none Differential diagnosis: diverticulitis, UTI, obstruction, mesenteric ischemia, aortic pathology, Appendicitis, testicular torsion, infections, inflammatory bowel disease, renal colic, PUD, pancreatitis, biliary pathology, hernia, volvulus, constipation, as well as other pathologies. Diagnostics, as interpreted by me: ECG: none Cardiac Monitoring: Cardiac monitoring ordered by me: The patient was placed on continuous cardiac monitoring and observed. It revealed a normal sinus rhythm at 84 beats per minute without ectopy or evidence of dysrhythmia. Medical decision rules: none Imaging studies: CT scan shows mild diverticulosis. Patient has inflammation of the tail of the pancreas concerning for pancreatitis. I refer you to the EMR for further details. HPI: The patient is a 82year old male who presents to the Emergency Room with complaints of left lower quadrant abdominal pain. This started last evening and is worsening today. The patient also notes the following associated symptoms, fever. The patient has taken Tylenol for relieving factors. Current pain is rated as 5/10. No prior history of the same. Patient also noted some nausea but denied vomiting. Pt denies LOC, headache, fevers, chills, diaphoresis, visual changes, neck pain, chest pain, breathing difficulties, back pain, melena, hematochezia, urinary symptoms, numbness, weakness, lymphadenopathy, rash, or other complaints. PAST MEDICAL HISTORY: See Below, emphysema PAST SURGICAL HISTORY: See Below, SOCIAL HISTORY: See Below, HOME MEDICATIONS: See Below ALLERGIES: See Below VITALS: See Below PHYSICAL EXAMINATION: GENERAL: Awake, alert, uncomfortable-appearing, in no distress HENT: Normocephalic, atraumatic. Oropharynx unremarkable. EYES: Normal conjunctiva. Sclera non-icteric. NECK: Inspection normal. Non-tender. Supple. No nuchal rigidity. FROM. No masses. RESPIRATORY: Clear to auscultation. No wheezes. No rales. Normal respiratory effort. CARDIAC: Normal rate. Normal rhythm. No murmurs. No rubs. Extremities warm and well perfused. Pulses equal. No JVD. GI: Soft, non-distended. Left lower quadrant tenderness to palpation. No rebound or guarding. No masses. RECTAL: Deferred. MUSCULOSKELETAL: Atraumatic. Chest examination reveals no tenderness. The back is symmetrical on inspection without obvious abnormality. There is no CVA tenderness to palpation. No joint edema. LOWER EXTREMITIES: Calves are equal size bilaterally and non-tender. No edema. No discoloration. NEURO: Normal sensorium. No sensory or motor deficits noted. SKIN: No rash or jaundice noted. Past Med/Surg History Medical History (Updated 04/04/23 @ 01:45 by Ney Aguilera MD) Arthritis BPH (benign prostatic hyperplasia) HX Cardiac murmur 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 Seizure HX "DISORIENTATION TYPE"-SINGLE EPISODE 7-8 YRS AGO-ON DAILY PHENOBARBITOL Sleep apnea CPAP Spinal stenosis RIGHT LEG PAIN Surgical History History of colonoscopy History of eye surgery TEAR DUCT SURGERY RIGHT History of hand surgery LEFT LIGAMENT Hx of transurethral resection of prostate Family History Mother Family hx of colon cancer Social History Smoking Status: Former smoker Cigarettes Per Day: 1/2 Pack; Second Hand Exposure: No; Do You Dip or Chew Tobacco: No; Hx Alcohol Use: No Hx Substance Use: No Preferred Language: Canadian Communication Ability: Effective Graphics Software Engineer Required: No Beliefs That Will Affect Care: None marital status: Single Current Living Situation: Alone Feels Safe at Home: Yes Assistive Devices: CPAP and Walker Allergies Allergies Allergy/AdvReac Type Severity Reaction Status Date / Time lamotrigine Allergy Unknown pruritus, Verified 06/23/22 00:26 rash oxycodone AdvReac Unknown "strange" Verified 06/23/22 00:26 feeling Home Meds Home Medications Medication Instructions Recorded Confirmed ascorbic acid (vitamin C) 500 mg 500 mg PO QAM 05/31/19 06/26/22 capsule calcium carbonate 600 mg-vitamin 1 cap PO QPM 05/31/19 06/26/22 D3 5 mcg (200 unit) capsule (Calcium 600 + D(3)) fluocinonide 0.05 % topical cream 1 applic topical BID PRN Rash 05/31/19 06/26/22 multivitamin 1 tab PO QPM 05/31/19 06/26/22 naproxen sodium 220 mg capsule 440 mg PO BID PRN Pain 05/31/19 06/26/22 (Aleve) phenobarbital 60 mg tablet 60 mg PO BID 05/31/19 06/26/22 tiotropium bromide 18 mcg capsule 1 cap inhalation QAM 05/31/19 06/26/22 with inhalation device (Spiriva with HandiHaler) valacyclovir 1 gram tablet 1,000 mg PO UD PRN Cold Sores 05/31/19 06/26/22 alendronate 70 mg tablet 70 mg PO WK 06/23/22 06/26/22 glucosamine-chondroitin 500 mg-400 1 tab PO BID 06/23/22 06/26/22 mg tablet pravastatin 20 mg tablet 20 mg PO DAILY 06/23/22 06/26/22 prednisone 1 mg tablet 2 mg PO DAILY 06/23/22 06/26/22 Previous Rx's Medication Instructions Recorded albuterol sulfate 90 mcg/actuation 2 inh inhalation QID PRN shortness 06/24/22 aerosol inhaler (ProAir HFA) of breath or wheezing #8.5 grams ipratropium 0.5 mg-albuterol 3 mg 3 ml NEB QID PRN shortness of 07/01/22 (2.5 mg base)/3 mL nebulization breath or wheezing #90 mL soln prednisone 10 mg tablet 10 mg PO DAILY #12 tabs 07/01/22 Results & Data (ED) Vital Signs Vital Signs - 24 hr 04/03/23 21:36 04/03/23 22:39 04/03/23 22:43 Temperature 37 C 36.8 C Temperature Source Temporal Artery Scan Oral Pulse Rate 86 85 Pulse Rate from SpO2 Sensor Respiratory Rate 18 Respiratory Effort / Characteristics Non-Labored Spontaneous Respiratory Depth Normal Blood Pressure 153/57 H Blood Pressure Mean 89 Blood Pressure Position Sitting Pulse Oximetry 93 Oxygen Delivery Method Room Air Sepsis Recent Fever Within 48 Hours Yes Sepsis New/Unexplained Change in Mental Status No Sepsis Action Taken by Nursing No Action Required 04/03/23 23:00 04/03/23 23:30 04/04/23 00:00 Temperature Temperature Source Pulse Rate 84 80 80 Pulse Rate from SpO2 Sensor 80 Respiratory Rate 24 17 22 Respiratory Effort / Characteristics Respiratory Depth Blood Pressure 151/73 H 161/79 H 148/74 H Blood Pressure Mean 99 106 98 Blood Pressure Position Pulse Oximetry 97 96 96 Oxygen Delivery Method Room Air Room Air Room Air Sepsis Recent Fever Within 48 Hours Sepsis New/Unexplained Change in Mental Status Sepsis Action Taken by Nursing 04/04/23 01:00 Temperature Temperature Source Pulse Rate 84 Pulse Rate from SpO2 Sensor 84 Respiratory Rate 17 Respiratory Effort / Characteristics Respiratory Depth Blood Pressure 137/85 Blood Pressure Mean 102 Blood Pressure Position Pulse Oximetry 93 Oxygen Delivery Method Room Air Sepsis Recent Fever Within 48 Hours Sepsis New/Unexplained Change in Mental Status Sepsis Action Taken by Nursing Laboratory Data 04/03/23 22:30 04/03/23 22:30 Lab Results 04/03/23 04/03/23 04/03/23 Range/Units 22:30 22:30 23:50 WBC 11.31 H (4.8-10.8) K/ul RBC 4.77 (4.70-6.10) M/uL Hgb 13.9 L (14.0-18.0) g/dl Hct 40.6 L (42.0-52.0) % MCV 85.1 (80.0-100.0) fL MCH 29.1 (25.0-34.0) pg MCHC 34.2 (32.0-36.0) g/dL RDW Std Deviation 43.5 (36.4-46.3) fL RDW Coeff of Radha 14.1 (11.5-14.5) % Plt Count 241 (130-400) K/uL MPV 9.1 L (9.4-12.4) fL Immature Gran % (Auto) 0.4 % Neut % (Auto) 76.2 % Lymph % (Auto) 11.3 % [place] % (Auto) 10.1 % Eos % (Auto) 1.8 % Baso % (Auto) 0.2 % Neut # (Auto) 8.62 H (1.40-6.50) K/uL Lymph # (Auto) 1.28 (1.2-3.4) K/uL [place] # (Auto) 1.14 H (0.11-0.59) K/uL Eos # (Auto) 0.20 (0-0.50) K/uL Baso # (Auto) 0.02 (0-0.2) K/uL Immature Gran # (Auto) 0.05 (0.01-0.20) K/uL Sodium 133 L (136-145) mmol/L Potassium 3.9 (3.5-5.1) mmol/L Chloride 100 (98-107) mmol/L Carbon Dioxide 26 (21-32) mmol/L Anion Gap 7 (3-11) BUN 13 (6-23) mg/dl Creatinine 0.69 (0.6-1.4) mg/dl Est Cr Clr Drug Dosing 87.5 ml/min Est GFR ( Amer) 101.0 ml/min Est GFR (Non-Af Amer) 87.2 ml/min BUN/Creatinine Ratio 18.8 (10-20) Glucose 126 H (70-99(Fasting)) mg/dl Calcium 8.3 L (8.6-10.3) mg/dl Magnesium 1.9 (1.7-2.4) mg/dl Total Bilirubin 0.5 (0.2-1.0) mg/dl AST 16 (13-39) U/L ALT 13 (7-52) U/L Alkaline Phosphatase 78 (34-104) U/L Total Protein 6.4 (6.0-8.3) gm/dl Albumin 3.8 (3.4-5.0) gm/dl Globulin 2.6 (2.5-4.0) gm/dl Albumin/Globulin Ratio 1.5 (0.9-2) Lipase 90 H (11-82) U/L Urine Color Yellow Urine Appearance Clear (Clear) Urine pH >= 9.0 H (4.5-7.5) Ur Specific [place] 1.010 (1.000-1.030) Urine Protein Negative (Negative) Urine Glucose (UA) Negative (Negative) Urine Ketones Trace H (Negative) Urine Blood Negative (Negative) Urine Nitrite Negative (Negative) Urine Bilirubin Negative (Negative) Urine Urobilinogen Negative (Negative) Ur Leukocyte Esterase Negative (Negative) SARS-CoV-2, RNA, NAAT (NEGATIVE) 04/04/23 Range/Units 01:04 WBC (4.8-10.8) K/ul RBC (4.70-6.10) M/uL Hgb (14.0-18.0) g/dl Hct (42.0-52.0) % MCV (80.0-100.0) fL MCH (25.0-34.0) pg MCHC (32.0-36.0) g/dL RDW Std Deviation (36.4-46.3) fL RDW Coeff of Radha (11.5-14.5) % Plt Count (130-400) K/uL MPV (9.4-12.4) fL Immature Gran % (Auto) % Neut % (Auto) % Lymph % (Auto) % [place] % (Auto) % Eos % (Auto) % Baso % (Auto) % Neut # (Auto) (1.40-6.50) K/uL Lymph # (Auto) (1.2-3.4) K/uL [place] # (Auto) (0.11-0.59) K/uL Eos # (Auto) (0-0.50) K/uL Baso # (Auto) (0-0.2) K/uL Immature Gran # (Auto) (0.01-0.20) K/uL Sodium (136-145) mmol/L Potassium (3.5-5.1) mmol/L Chloride (98-107) mmol/L Carbon Dioxide (21-32) mmol/L Anion Gap (3-11) BUN (6-23) mg/dl Creatinine (0.6-1.4) mg/dl Est Cr Clr Drug Dosing ml/min Est GFR ( Amer) ml/min Est GFR (Non-Af Amer) ml/min BUN/Creatinine Ratio (10-20) Glucose (70-99(Fasting)) mg/dl Calcium (8.6-10.3) mg/dl Magnesium (1.7-2.4) mg/dl Total Bilirubin (0.2-1.0) mg/dl AST (13-39) U/L ALT (7-52) U/L Alkaline Phosphatase (34-104) U/L Total Protein (6.0-8.3) gm/dl Albumin (3.4-5.0) gm/dl Globulin (2.5-4.0) gm/dl Albumin/Globulin Ratio (0.9-2) Lipase (11-82) U/L Urine Color Urine Appearance (Clear) Urine pH (4.5-7.5) Ur Specific [place] (1.000-1.030) Urine Protein (Negative) Urine Glucose (UA) (Negative) Urine Ketones (Negative) Urine Blood (Negative) Urine Nitrite (Negative) Urine Bilirubin (Negative) Urine Urobilinogen (Negative) Ur Leukocyte Esterase (Negative) SARS-CoV-2, RNA, NAAT NEGATIVE (NEGATIVE) Administered Medications Hydromorphone HCl (Hydromorphone Inj 0.5 Mg/0.5 Ml Syr) 0.25 mg IV Q15M PRN PRN Reason: Pain Stop: 04/17/23 23:11 Last Admin: 04/03/23 23:28 Dose: 0.25 mg Documented By: Lactated Ringer's (Lr) 1,000 mls @ 200 mls/hr IV .Q5H PARVEZ Stop: 05/04/23 00:44 Last Admin: 04/04/23 01:08 Dose: 200 mls/hr Documented By: LAZARA Discontinued Medications Ondansetron HCl (Ondansetron Inj 2 Mg/Ml 2 Ml Vial) 4 mg IV NOW STA Stop: 04/03/23 23:13 Last Admin: 04/03/23 23:28 Dose: 4 mg Documented By: Imaging Data Radiologist's Impression: Abdomen/Pelvis CT 04/03/23 23:12 Exam(s): CT ABDOMEN + PELVIS Without Contrast EXAM: CT Abdomen and Pelvis Without Intravenous Contrast CLINICAL HISTORY: Reason for exam: LLQ abd pain. TECHNIQUE: Axial computed tomography images of the abdomen and pelvis without intravenous contrast. CTDI is 23.07 mGy and DLP is 1248.53 mGy-cm. Automated exposure control was utilized for the study. A dose lowering technique was utilized adhering to the principles of ALARA. COMPARISON: No relevant prior studies available. FINDINGS: Lung bases: Unremarkable. No mass. No consolidation. ABDOMEN: Liver: Unremarkable. Gallbladder and bile ducts: Unremarkable. No calcified stones. No ductal dilation. Pancreas: There is some stranding adjacent to the pancreatic tail (image 30 series 2). No ductal dilation. Spleen: Unremarkable. No splenomegaly. Adrenals: Unremarkable. No mass. Kidneys and ureters: There is a punctate nonobstructing left midpole intrarenal calculus. There is bilateral renal atrophy. There is a simple appearing right renal cyst. Stomach and bowel: There is scattered colonic diverticula without CT evidence for active diverticulitis. No obstruction. PELVIS: Appendix: No findings to suggest acute appendicitis. Bladder: Unremarkable. No stones. Reproductive: Unremarkable as visualized. ABDOMEN and PELVIS: Intraperitoneal space: Unremarkable. No free air. No significant fluid collection. 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 No acute fracture. No dislocation. Soft tissues: Unremarkable. Vasculature: There is diffuse atherosclerotic calcification of the aorta and its major branch vessels. No abdominal aortic aneurysm. Lymph nodes: Unremarkable. No enlarged lymph nodes. IMPRESSION: Peripancreatic stranding, please correlate with any concern for acute pancreatitis. Scattered colonic diverticula without CT evidence for active diverticulitis. Left-sided intrarenal calculus without hydronephrosis or distal ureteral calculus identified. Electronically signed by: Hasmukh Amaya MD 04/04/23 00:08 AM Discharge Plan Visit Data Chief Complaint: Abdominal Pain Stated Complaint: FEVER,SEVERE ABDOMINAL PAIN,TIRED ED Provider: Ney Aguilera Discharge Problem: Pancreatitis Forms Stand Alone Forms: My [employer] Prescriptions Prescriptions: No Action multivitamin Tablet 1 tab PO QPM phenobarbital 60 mg Tablet 60 mg PO BID naproxen sodium [Aleve] 220 mg Capsule 440 mg PO BID PRN (Reason: Pain) ascorbic acid (vitamin C) 500 mg Capsule 500 mg PO QAM Spiriva with HandiHaler 18 mcg Capsule, W/Inhalation Device 1 cap INHALATION QAM valacyclovir 1 gram Tablet 1,000 mg PO UD PRN (Reason: Cold Sores) Calcium 600 + D(3) 600 mg calcium- 200 unit Capsule 1 cap PO QPM fluocinonide 0.05 % Cream 1 applic TOPICAL BID PRN (Reason: Rash) glucosamine-chondroitin 500-400 mg Tablet 1 tab PO BID pravastatin 20 mg tablet 20 mg PO DAILY prednisone 1 mg tablet 2 mg PO DAILY alendronate 70 mg Tablet 70 mg PO WK Rx Instructions: TAKE THIS MED EVERY THURSDAY albuterol sulfate [ProAir HFA] 90 mcg/actuation HFA aerosol inhaler 2 inh inhalation QID PRN (Reason: shortness of breath or wheezing) Qty: 8.5 0RF ipratropium-albuterol 0.5 mg-3 mg(2.5 mg base)/3 mL Solution For Nebulization 3 ml NEB QID PRN (Reason: shortness of breath or wheezing) Qty: 90 0RF prednisone 10 mg tablet 10 mg PO DAILY Qty: 12 0RF Rx Instructions: Take 30 mg for 2 days, then 20 mg for 2 days, then 10mg for 2 days. Referrals Referrals: Travis Acuna MD [Primary Care Provider] -
--- NOTE | 2023-04-04 00:09 | CT Scan Report ---
Exam(s): CT ABDOMEN + PELVIS Without Contrast EXAM: CT Abdomen and Pelvis Without Intravenous Contrast CLINICAL HISTORY: Reason for exam: LLQ abd pain. TECHNIQUE: Axial computed tomography images of the abdomen and pelvis without intravenous contrast. CTDI is 23.07 mGy and DLP is 1248.53 mGy-cm. Automated exposure control was utilized for the study. A dose lowering technique was utilized adhering to the principles of ALARA. COMPARISON: No relevant prior studies available. FINDINGS: Lung bases: Unremarkable. No mass. No consolidation. ABDOMEN: Liver: Unremarkable. Gallbladder and bile ducts: Unremarkable. No calcified stones. No ductal dilation. Pancreas: There is some stranding adjacent to the pancreatic tail (image 30 series 2). No ductal dilation. Spleen: Unremarkable. No splenomegaly. Adrenals: Unremarkable. No mass. Kidneys and ureters: There is a punctate nonobstructing left midpole intrarenal calculus. There is bilateral renal atrophy. There is a simple appearing right renal cyst. Stomach and bowel: There is scattered colonic diverticula without CT evidence for active diverticulitis. No obstruction. PELVIS: Appendix: No findings to suggest acute appendicitis. Bladder: Unremarkable. No stones. Reproductive: Unremarkable as visualized. ABDOMEN and PELVIS: Intraperitoneal space: Unremarkable. No free air. No significant fluid collection. 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 No acute fracture. No dislocation. Soft tissues: Unremarkable. Vasculature: There is diffuse atherosclerotic calcification of the aorta and its major branch vessels. No abdominal aortic aneurysm. Lymph nodes: Unremarkable. No enlarged lymph nodes. IMPRESSION: Peripancreatic stranding, please correlate with any concern for acute pancreatitis. Scattered colonic diverticula without CT evidence for active diverticulitis. Left-sided intrarenal calculus without hydronephrosis or distal ureteral calculus identified. Electronically signed by: Hasmukh Amaya MD 04/04/23 00:08 AM
[2023-04-04 00:17] LABS: Appearance Urine Clear (Clear); Bilirubin Urine Negative (Negative); Blood Urine Negative (Negative); Color Urine Yellow; Glucose Urine UA Negative (Negative); Ketones Urine Trace (Negative); Leukocyte Esterase Urine Negative (Negative); Nitrite Urine Negative (Negative); Protein Urine Negative (Negative); Urobilinogen Urine Negative (Negative); pH Urine >= 9.0 (4.5-7.5)
[2023-04-04] MEDS ORDERED: LACTATED RINGER'S 1,000 ML IV SCH (00:45)
[2023-04-04] MEDS ORDERED: amLODIPine BESYLATE 5 MG TAB PO ONE (01:05)
[2023-04-04 01:20] LABS: Magnesium 1.9 mg/dl (1.7-2.4)
[2023-04-04] MEDS ORDERED: HYDROmorphone INJ 0.5 MG/0.5 ML SYR IV STA (02:27)
--- NOTE | 2023-04-04 02:31 | History & Physical Report ---
Date of Service April 04, 2023 Assessment & Plan (1) Pancreatitis: Plan: Rule out biliary etiology HTN, slight elevated secondary to discomfort hyperlipidemia, on statin Rx hx PSVT valvular heart disease (mild /AR/CA) COPD, RAJNI on CPAP, lung status at baseline PMR on chronic steroid Rx seizure disorder, stable on phenobarbital Chronic hyponatremia Steroid-induced hyperglycemia likely prediabetes, hemoglobin A1c of 5.7 from 2016 past tobacco abuse GMF Bowel rest Careful IV hydration given valvular heart disease Gallbladder ultrasound GI consult Re: Pancreatitis Update hemoglobin A1c DVT prophylaxis. Lovenox subcu Full code Text document was generated using [employer] voice recognition software. It may contain grammatical or spelling errors. Kindly contact undersigned for clarification of any documentation item in question. History of Present Illness Chief Complaint: Abdominal pain Primary Care Provider: Travis Acuna MD History obtained from patient and records. Medical history significant for HTN, hyperlipidemia, PSVT, valvular heart disease (mild /AR/CA), COPD, RAJNI on CPAP, BPH, PMR on chronic steroid Rx, seizure disorder, past tobacco abuse. Last confinement June 2022 for COPD exacerbation. 2 nights ago, patient experienced left-sided abdominal pain, gradually worsening. No actual chest pain, no unusual shortness of breath. Symptoms noted following a meal of soup and hot dog. No fever, no chills. Last drink was 2 nights ago, Denies EtOH abuse. Medical Historyas above Surgical History : Skin biopsy, cystoscopy, back surgery, TURP Family History : Colon cancer, prostate cancer Personal/Social history : Past tobacco abuse, occasional EtOH intake, retired digital hardware design engineer Allergies Allergy/AdvReac Type Severity Reaction Status Date / Time lamotrigine Allergy Unknown pruritus, Verified 04/04/23 01:53 rash oxycodone AdvReac Unknown "strange" Verified 04/04/23 01:53 feeling Home Medications Medication Instructions Recorded Confirmed Type ascorbic acid (vitamin C) 500 mg 500 mg PO QAM 05/31/19 04/04/23 History capsule calcium carbonate 600 mg-vitamin 1 cap PO DAILY 05/31/19 04/04/23 History D3 5 mcg (200 unit) capsule (Calcium 600 + D(3)) multivitamin 1 tab PO QPM 05/31/19 04/04/23 History phenobarbital 60 mg tablet 60 mg PO BID 05/31/19 04/04/23 History tiotropium bromide 18 mcg capsule 1 cap inhalation QAM 05/31/19 04/04/23 History with inhalation device (Spiriva with HandiHaler) valacyclovir 1 gram tablet 1,000 mg PO UD PRN Cold Sores 05/31/19 04/04/23 History alendronate 70 mg tablet 70 mg PO WK 06/23/22 04/04/23 History glucosamine-chondroitin 500 mg-400 1 tab PO BID 06/23/22 04/04/23 History mg tablet pravastatin 20 mg tablet 20 mg PO DAILY 06/23/22 04/04/23 History prednisone 1 mg tablet 2 mg PO DAILY 06/23/22 04/04/23 History albuterol sulfate 90 mcg/actuation 2 inh inhalation QID PRN shortness 06/24/22 04/04/23 Rx aerosol inhaler (ProAir HFA) of breath or wheezing #8.5 grams ipratropium 0.5 mg-albuterol 3 mg 3 ml NEB QID PRN shortness of 07/01/22 04/04/23 Rx (2.5 mg base)/3 mL nebulization breath or wheezing #90 mL soln Guaifenesin 200mg Tab 200 mg PO TID PRN Congestion 04/04/23 04/04/23 History amlodipine 2.5 mg tablet 2.5 mg PO QAM 04/04/23 04/04/23 History benzonatate 100 mg capsule 100 mg PO TID PRN Cough 04/04/23 04/04/23 History fluticasone propionate 50 1 spray intranasal DAILY 04/04/23 04/04/23 History mcg/actuation nasal spray,suspension (Flonase Allergy Relief) magnesium oxide 420 mg tablet 420 mg PO DAILY 04/04/23 04/04/23 History naproxen sodium 220 mg tablet 440 mg PO DAILY PRN Pain 04/04/23 04/04/23 History (Aleve) Past Med/Surg History Medical History (Updated 04/04/23 @ 01:45 by Ney Aguilera MD) Arthritis BPH (benign prostatic hyperplasia) HX Cardiac murmur 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 Seizure HX "DISORIENTATION TYPE"-SINGLE EPISODE 7-8 YRS AGO-ON DAILY PHENOBARBITOL Sleep apnea CPAP Spinal stenosis RIGHT LEG PAIN Surgical History History of colonoscopy History of eye surgery TEAR DUCT SURGERY RIGHT History of hand surgery LEFT LIGAMENT Hx of transurethral resection of prostate Family History Mother Family hx of colon cancer Social History Smoking Status: Former smoker Cigarettes Per Day: 1/2 Pack; Smoking End Date: 35 years ago; Second Hand Exposure: No; Do You Dip or Chew Tobacco: No; Hx Alcohol Use: Yes Alcohol type: beer Hx Substance Use: No Preferred Language: Jamaican Communication Ability: Effective Freight Representative Required: No Beliefs That Will Affect Care: None marital status: Single Current Living Situation: Alone Other Information That Helps Us Care for You: No Feels Safe at Home: Yes Safety Concerns: Feels Safe At This Time Assistive Devices: Glasses Review of Systems Review of Systems: As per HPI, all other systems reviewed and negative Physical Exam Physical Exam: GENERAL: Slightly uncomfortable, slightly anxious, no respiratory distress SKIN: Normal color, warm HEENT: Bespectacled, pink palpebral conjunctivae, no ptosis, dry buccal mucosa NECK : Supple, no tenderness CHEST : Decreased breath sounds, no tenderness HEART : RRR, no obvious murmurs ABDOMEN: no distention, left-sided abdominal tenderness EXTREMITIES : No LE swelling/tenderness, no other conspicuous deformities noted NEUROLOGIC : Coherent, no facial asymmetry, no other gross focality Results & Data Results & Data Vital Signs (Past 12 Hours) Vital Signs Temp Pulse Resp BP Pulse Ox O2 Del Method 04/04/23 02:00 86 18 150/78 H 94 Room Air 04/04/23 01:00 84 17 137/85 93 Room Air 04/04/23 00:00 80 22 148/74 H 96 Room Air 04/03/23 23:30 80 17 161/79 H 96 Room Air 04/03/23 23:00 84 24 151/73 H 97 Room Air 04/03/23 22:43 85 04/03/23 22:39 36.8 C 04/03/23 21:36 37 C 86 18 153/57 H 93 Room Air Laboratory Results Laboratory Results WBC 11.31 K/ul (4.8-10.8) H 04/03/23 22: RBC 4.77 M/uL (4.70-6.10) 04/03/23 22: Hgb 13.9 g/dl (14.0-18.0) L 04/03/23 22: Hct 40.6 % (42.0-52.0) L 04/03/23: MCV 85.1 fL (80.0-100.0) 04/03/23 22: MCH 29.1 pg (25.0-34.0) 04/03/23: MCHC 34.2 g/dL (32.0-36.0) 04/03/23: RDW Std Deviation 43.5 fL (36.4-46.3) 04/03/23: RDW Coeff of Radha 14.1 % (11.5-14.5) 04/03/23: Plt Count 241 K/uL (130-400) 04/03/23: MPV 9.1 fL (9.4-12.4) L 04/03/23: Immature Gran % (Auto) 0.4 % 04/03/23: Neut % (Auto) 76.2 % 04/03/23: Lymph % (Auto) 11.3 % 04/03/23: [place] % (Auto) 10.1 % 04/03/23: Eos % (Auto) 1.8 % 04/03/23: Baso % (Auto) 0.2 % 04/03/23: Neut # (Auto) 8.62 K/uL (1.40-6.50) H 04/03/23 22: Lymph # (Auto) 1.28 K/uL (1.2-3.4) 04/03/23: [place] # (Auto) 1.14 K/uL (0.11-0.59) H 04/03/23 22: Eos # (Auto) 0.20 K/uL (0-0.50) 04/03/23 22: Baso # (Auto) 0.02 K/uL (0-0.2) 04/03/23 22:30 Immature Gran # (Auto) 0.05 K/uL (0.01-0.20) 04/03/23 22:30 Sodium 133 mmol/L (136-145) L 04/03/23 22:30 Potassium 3.9 mmol/L (3.5-5.1) 04/03/23 22:30 Chloride 100 mmol/L (98-107) 04/03/23 22:30 Carbon Dioxide 26 mmol/L (21-32) 04/03/23 22:30 Anion Gap 7 (3-11) 04/03/23 22:30 BUN 13 mg/dl (6-23) 04/03/23 22: Creatinine 0.69 mg/dl (0.6-1.4) 04/03/23 22:30 Est Cr Clr Drug Dosing 87.5 ml/min 04/03/23 22:30 Est GFR ( Amer) 101.0 ml/min 04/03/23 22:30 Est GFR (Non-Af Amer) 87.2 ml/min 04/03/23 22:30 BUN/Creatinine Ratio 18.8 (10-20) 04/03/23 22:30 Glucose 126 mg/dl (70-99(Fasting)) H 04/03/23 22: Calcium 8.3 mg/dl (8.6-10.3) L 04/03/23 22:30 Magnesium 1.9 mg/dl (1.7-2.4) 04/03/23 22:30 Total Bilirubin 0.5 mg/dl (0.2-1.0) 04/03/23 22:30 AST 16 U/L (13-39) 04/03/23 22:30 ALT 13 U/L (7-52) 04/03/23 22:30 Alkaline Phosphatase 78 U/L (34-104) 04/03/23 22:30 Total Protein 6.4 gm/dl (6.0-8.3) 04/03/23 22: Albumin 3.8 gm/dl (3.4-5.0) 04/03/23 22:30 Globulin 2.6 gm/dl (2.5-4.0) 04/03/23 22:30 Albumin/Globulin Ratio 1.5 (0.9-2) 04/03/23 22:30 Lipase 90 U/L (11-82) H 04/03/23 22:30 Urine Color Yellow 04/03/23 23:50 Urine Appearance Clear (Clear) 04/03/23 23:50 Urine pH >= 9.0 (4.5-7.5) H 04/03/23 23:50 Ur Specific [place] 1.010 (1.000-1.030) 04/03/23 23:50 Urine Protein Negative (Negative) 04/03/23 23:50 Urine Glucose (UA) Negative (Negative) 04/03/23 23:50 Urine Ketones Trace (Negative) H 04/03/23 23:50 Urine Blood Negative (Negative) 04/03/23 23:50 Urine Nitrite Negative (Negative) 04/03/23 23:50 Urine Bilirubin Negative (Negative) 04/03/23 23:50 Urine Urobilinogen Negative (Negative) 04/03/23 23:50 Ur Leukocyte Esterase Negative (Negative) 04/03/23 23:50 SARS-CoV-2, RNA, NAAT NEGATIVE (NEGATIVE) 04/04/23 01:04 Impressions Abdomen/Pelvis CT 04/03/23 23:12 Exam(s): CT ABDOMEN + PELVIS Without Contrast EXAM: CT Abdomen and Pelvis Without Intravenous Contrast CLINICAL HISTORY: Reason for exam: LLQ abd pain. TECHNIQUE: Axial computed tomography images of the abdomen and pelvis without intravenous contrast. CTDI is 23.07 mGy and DLP is 1248.53 mGy-cm. Automated exposure control was utilized for the study. A dose lowering technique was utilized adhering to the principles of ALARA. COMPARISON: No relevant prior studies available. FINDINGS: Lung bases: Unremarkable. No mass. No consolidation. ABDOMEN: Liver: Unremarkable. Gallbladder and bile ducts: Unremarkable. No calcified stones. No ductal dilation. Pancreas: There is some stranding adjacent to the pancreatic tail (image 30 series 2). No ductal dilation. Spleen: Unremarkable. No splenomegaly. Adrenals: Unremarkable. No mass. Kidneys and ureters: There is a punctate nonobstructing left midpole intrarenal calculus. There is bilateral renal atrophy. There is a simple appearing right renal cyst. Stomach and bowel: There is scattered colonic diverticula without CT evidence for active diverticulitis. No obstruction. PELVIS: Appendix: No findings to suggest acute appendicitis. Bladder: Unremarkable. No stones. Reproductive: Unremarkable as visualized. ABDOMEN and PELVIS: Intraperitoneal space: Unremarkable. No free air. No significant fluid collection. 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 No acute fracture. No dislocation. Soft tissues: Unremarkable. Vasculature: There is diffuse atherosclerotic calcification of the aorta and its major branch vessels. No abdominal aortic aneurysm. Lymph nodes: Unremarkable. No enlarged lymph nodes. IMPRESSION: Peripancreatic stranding, please correlate with any concern for acute pancreatitis. Scattered colonic diverticula without CT evidence for active diverticulitis. Left-sided intrarenal calculus without hydronephrosis or distal ureteral calculus identified. Electronically signed by: Hasmukh Amaya MD 04/04/23 00:08 AM
[2023-04-04] MEDS ORDERED: HYDROCODONE/ACETAMOPHEN 5/325MG TAB PO PRN (02:34)
[2023-04-04] MEDS ORDERED: PROMETHAZINE HCL 6.25 MG in SODIUM CHLORIDE 0.9% 50 ML IV PRN (02:34)
[2023-04-04] MEDS ORDERED: HYDROmorphone INJ 0.5 MG/0.5 ML SYR IV PRN (02:34)
[2023-04-04] MEDS ORDERED: ACETAMINOPHEN 325 MG TAB PO PRN (02:34)
[2023-04-04] MEDS ORDERED: LACTATED RINGER'S 1,000 ML IV ONE (02:37)
--- NOTE | 2023-04-04 06:17 | Ultrasound Report ---
Exam(s): US GALLBLADDER EXAM: US Abdomen Limited, Gallbladder CLINICAL HISTORY: Reason for exam: abd pain ro gallstones. TECHNIQUE: Real-time ultrasound of the right upper quadrant with image documentation. COMPARISON: No relevant prior studies available. FINDINGS: Liver is of heterogeneous echotexture consistent with fatty infiltration of same. Gallbladder: Unremarkable. No gallstones. Common bile duct: Unremarkable as visualized. No stones. No dilation. Pancreas: Unremarkable as visualized. IMPRESSION: No acute intra-abdominal pathology. Electronically signed by: Ayan Elliott MD 04/04/23 06:16 AM
[2023-04-04 06:52] LABS: Basophils # (auto) 0.03 K/uL (0-0.2); Basophils % (auto) 0.3 %; Eosinophils % (auto) 1.8 %; Hemoglobin 13.2 g/dl (14.0-18.0); Immature Granulocytes # (auto) 0.05 K/uL (0.01-0.20); Immature Granulocytes % (auto) 0.4 %; Lymphocytes # (auto) 1.69 K/uL (1.2-3.4); Lymphocytes % (auto) 14.9 %; Mean Corpuscular Hemoglobin 29.2 pg (25.0-34.0); Mean Corpuscular Hgb Conc 33.8 g/dL (32.0-36.0); Mean Corpuscular Volume 86.3 fL (80.0-100.0); Mean Platelet Volume 9.4 fL (9.4-12.4); Monocytes # (auto) 1.27 K/uL (0.11-0.59); Monocytes % (auto) 11.2 %; Neutrophils # (auto) 8.14 K/uL (1.40-6.50); Neutrophils % (auto) 71.4 %; Platelet Count 195 K/uL (130-400); RDW Coefficient of Variation 14.1 % (11.5-14.5); RDW Standard Deviation 44.3 fL (36.4-46.3); Red Blood Count 4.52 M/uL (4.70-6.10); White Blood Count 11.38 K/ul (4.8-10.8)
[2023-04-04 07:26] LABS: Albumin Globulin Ratio 1.3 (0.9-2); Albumin Level 3.5 gm/dl (3.4-5.0); BUN Creatinine Ratio 14.5 (10-20); Bilirubin,Total 0.4 mg/dl (0.2-1.0); Calcium 8.1 mg/dl (8.6-10.3); Creatinine Clr Calc Pharmacy 79.4 ml/min; Est GFR (African American) 97.1 ml/min; Est GFR (Non-African American) 83.8 ml/min; Globulin 2.6 gm/dl (2.5-4.0); Potassium 4.2 mmol/L (3.5-5.1); Total Protein 6.1 gm/dl (6.0-8.3)
[2023-04-04] MEDS: PRAVASTATIN SOD 20 MG TAB PO SCH (08:33)
[2023-04-04] MEDS: predniSONE 1 MG TAB PO SCH (08:33)
[2023-04-04] MEDS: ENOXAPARIN INJ 40 MG/0.4 ML SYR SQ SCH (08:35)
[2023-04-04] MEDS: FLUTICASONE PROPIONATE NA SPR 16 GM BTL NAE SCH ×2 (08:35→08:39)
[2023-04-04] MEDS: LACTATED RINGER'S 1,000 ML IV SCH ×3 (09:03→21:58)
--- NOTE | 2023-04-04 09:36 | XRay Report ---
XR chest 1V portable CLINICAL HISTORY: hyponatremia TECHNIQUE: Single frontal radiograph of the chest was obtained. Comparison: Comparison is made to chest radiograph 06/26/2022 FINDINGS: No lines and tubes are seen. Calcified aortic knob is seen. The lungs are clear. No evidence of pleur al effusion or pneumothorax. IMPRESSION: No acute chest disease. ACT 112: Negative or not required by law. Electronically signed by: Jesse Stewart M.D. 04/04/2023 9:35 AM
[2023-04-04] MEDS: amLODIPine BESYLATE 5 MG TAB PO SCH (09:40)
[2023-04-04] MEDS: UMECLIDINIUM BROMIDE 62.5MCG/BLISTER 7 PUFFS/INHALER INH SCH (09:40)
[2023-04-04] MEDS: PHENobarbitaL 30 MG TAB PO SCH ×2 (09:40→20:25)
--- NOTE | 2023-04-04 09:48 | Gastrointestinal Consultation ---
Date of Consultation April 04, 2023 Assessment & Plan (1) Pancreatitis: He has mild idiopathic pancreatitis. LFT's are normal and ultrasound shows no gall stones. His story is not completely typical for pancreatitis but that is all that is showing up at this time. I would treat with fluids and pain control and discharge when pain is managed and he can eat. I don't think further testing is warranted at this time. History of Present Illness Reason for Consultation: pancreatitis Attending Physician: Blanca Riggins MD History of Present Illness 82 year old man developed left sided abdominal pain on evening. This progressed over Thursday until he was admitted with "10 out of 10" abdominal pain. He denies nausea or vomiting. He denies diarrhea and has not had a bowel movement since morning but he hasn't eaten since . he did eat a bowl of cereal on Thursday but didn't notice a change in his symptoms. He checked his temperature and found he had a temp of 102 but since being in the hospital he has been afebrile. CT scan suggested mild pancreatitis in the tail of the pancreas without ductal dilatation. Labs were not of concern except for mild leukocytosis. He has had colonoscopy in the past but does not recall having an EGD. He drinks alcohol "when he wants to" but hasn't had any recently. Allergies Allergy/AdvReac Type Severity Reaction Status Date / Time lamotrigine Allergy Unknown pruritus, Verified 04/04/23 01:53 rash oxycodone AdvReac Unknown "strange" Verified 04/04/23 01:53 feeling Home Medications Medication Instructions Recorded Confirmed Type ascorbic acid (vitamin C) 500 mg 500 mg PO QAM 05/31/19 04/04/23 History capsule calcium carbonate 600 mg-vitamin 1 cap PO DAILY 05/31/19 04/04/23 History D3 5 mcg (200 unit) capsule (Calcium 600 + D(3)) multivitamin 1 tab PO QPM 05/31/19 04/04/23 History phenobarbital 60 mg tablet 60 mg PO BID 05/31/19 04/04/23 History tiotropium bromide 18 mcg capsule 1 cap inhalation QAM 05/31/19 04/04/23 History with inhalation device (Spiriva with HandiHaler) valacyclovir 1 gram tablet 1,000 mg PO UD PRN Cold Sores 05/31/19 04/04/23 History alendronate 70 mg tablet 70 mg PO WK 06/23/22 04/04/23 History glucosamine-chondroitin 500 mg-400 1 tab PO BID 06/23/22 04/04/23 History mg tablet pravastatin 20 mg tablet 20 mg PO DAILY 06/23/22 04/04/23 History prednisone 1 mg tablet 2 mg PO DAILY 06/23/22 04/04/23 History albuterol sulfate 90 mcg/actuation 2 inh inhalation QID PRN shortness 06/24/22 04/04/23 Rx aerosol inhaler (ProAir HFA) of breath or wheezing #8.5 grams ipratropium 0.5 mg-albuterol 3 mg 3 ml NEB QID PRN shortness of 07/01/22 04/04/23 Rx (2.5 mg base)/3 mL nebulization breath or wheezing #90 mL soln Guaifenesin 200mg Tab 200 mg PO TID PRN Congestion 04/04/23 04/04/23 History amlodipine 2.5 mg tablet 2.5 mg PO QAM 04/04/23 04/04/23 History benzonatate 100 mg capsule 100 mg PO TID PRN Cough 04/04/23 04/04/23 History fluticasone propionate 50 1 spray intranasal DAILY 04/04/23 04/04/23 History mcg/actuation nasal spray,suspension (Flonase Allergy Relief) magnesium oxide 420 mg tablet 420 mg PO DAILY 04/04/23 04/04/23 History naproxen sodium 220 mg tablet 440 mg PO DAILY PRN Pain 04/04/23 04/04/23 History (Aleve) Patient History Medical History Arthritis BPH (benign prostatic hyperplasia) HX Cardiac murmur 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 Seizure HX "DISORIENTATION TYPE"-SINGLE EPISODE 7-8 YRS AGO-ON DAILY PHENOBARBITOL Sleep apnea CPAP Spinal stenosis RIGHT LEG PAIN Surgical History History of colonoscopy History of eye surgery TEAR DUCT SURGERY RIGHT History of hand surgery LEFT LIGAMENT Hx of transurethral resection of prostate Family History Mother Family hx of colon cancer Social History Smoking Status: Former smoker Cigarettes Per Day: 1/2 Pack; Smoking End Date: 35 years ago; Second Hand Exposure: No; Do You Dip or Chew Tobacco: No; Hx Alcohol Use: Yes Alcohol type: beer Hx Substance Use: No Preferred Language: Mohawk Communication Ability: Effective Mental Health Social Worker Required: No Beliefs That Will Affect Care: None marital status: Single Current Living Situation: Alone Other Information That Helps Us Care for You: No Feels Safe at Home: Yes Safety Concerns: Feels Safe At This Time Assistive Devices: Glasses Review of Systems Review of Systems: All systems reviewed & are unremarkable except as noted in HPI & below Physical Exam Constitutional: WD/WN, vitals as above no acute distress Eyes: PERRL, conjunctivae normal, anicteric sclerae ENMT: external ear and nose normal, oropharynx normal Neck: trachea midline, no thyromegaly Respiratory: normal respiratory effort, lungs clear to auscultation Cardiovascular: RRR, no murmur, no edema Gastrointestinal (Abdomen): Inspection/Auscultation: abdomen normal to inspection and normal bowel sounds Percussion/Palpation: + abdomen tender (left mid abdomen and periumbilical) and abdomen soft Musculoskeletal: Extremities: no cyanosis and no clubbing Skin: no rashes, warm and dry Neurologic: PERRL, EOMI, accommodation nl, no face palsy, no dysarthria Psychiatric: Orientation: alert and oriented x 3 Results & Data Vital Signs (Past 12 Hours) Vital Signs Temp Pulse Pulse Pulse Resp BP BP 04/04/23 08:28 37.0 C 88 18 134/66 04/04/23 05:24 36.6 C 81 151/75 H 04/04/23 04:26 77 16 123/76 04/04/23 03:00 85 16 134/66 04/04/23 03:00 85 04/04/23 02:00 86 18 150/78 H 04/04/23 01:00 84 17 137/85 04/04/23 00:00 80 22 148/74 H 04/03/23 23:30 80 17 161/79 H 04/03/23 23:00 84 24 151/73 H 04/03/23 22:43 85 04/03/23 22:39 36.8 C Pulse Ox O2 Del Method 04/04/23 08:28 94 Room Air 04/04/23 05:24 95 Room Air 04/04/23 04:26 94 Room Air 04/04/23 03:00 93 Room Air 04/04/23 03:00 04/04/23 02:00 94 Room Air 04/04/23 01:00 93 Room Air 04/04/23 00:00 96 Room Air 04/03/23 23:30 96 Room Air 04/03/23 23:00 97 Room Air 04/03/23 22:43 04/03/23 22:39 Laboratory Results 04/04/23 04/04/23 04/04/23 Range/Units 06:21 06:21 03:42 WBC 11.38 H (4.8-10.8) K/ul RBC 4.52 L (4.70-6.10) M/uL Hgb 13.2 L (14.0-18.0) g/dl Hct 39.0 L (42.0-52.0) % MCV 86.3 (80.0-100.0) fL MCH 29.2 (25.0-34.0) pg MCHC 33.8 (32.0-36.0) g/dL RDW Std Deviation 44.3 (36.4-46.3) fL RDW Coeff of Radha 14.1 (11.5-14.5) % Plt Count 195 (130-400) K/uL MPV 9.4 (9.4-12.4) fL Immature Gran % (Auto) 0.4 % Neut % (Auto) 71.4 % Lymph % (Auto) 14.9 % [place] % (Auto) 11.2 % Eos % (Auto) 1.8 % Baso % (Auto) 0.3 % Neut # (Auto) 8.14 H (1.40-6.50) K/uL Lymph # (Auto) 1.69 (1.2-3.4) K/uL [place] # (Auto) 1.27 H (0.11-0.59) K/uL Eos # (Auto) 0.20 (0-0.50) K/uL Baso # (Auto) 0.03 (0-0.2) K/uL Immature Gran # (Auto) 0.05 (0.01-0.20) K/uL Sodium 135 L (136-145) mmol/L Potassium 4.2 (3.5-5.1) mmol/L Chloride 103 (98-107) mmol/L Carbon Dioxide 26 (21-32) mmol/L Anion Gap 6 (3-11) BUN 11 (6-23) mg/dl Creatinine 0.76 (0.6-1.4) mg/dl Est Cr Clr Drug Dosing 79.4 ml/min Est GFR ( Amer) 97.1 ml/min Est GFR (Non-Af Amer) 83.8 ml/min BUN/Creatinine Ratio 14.5 (10-20) Glucose 114 H (70-99(Fasting)) mg/dl Calcium 8.1 L (8.6-10.3) mg/dl Magnesium (1.7-2.4) mg/dl Total Bilirubin 0.4 (0.2-1.0) mg/dl AST 17 (13-39) U/L ALT 11 (7-52) U/L Alkaline Phosphatase 71 (34-104) U/L Total Protein 6.1 (6.0-8.3) gm/dl Albumin 3.5 (3.4-5.0) gm/dl Globulin 2.6 (2.5-4.0) gm/dl Albumin/Globulin Ratio 1.3 (0.9-2) Triglycerides 59 (0-150) mg/dl Lipase (11-82) U/L Urine Color Urine Appearance (Clear) Urine pH (4.5-7.5) Ur Specific [place] (1.000-1.030) Urine Protein (Negative) Urine Glucose (UA) (Negative) Urine Ketones (Negative) Urine Blood (Negative) Urine Nitrite (Negative) Urine Bilirubin (Negative) Urine Urobilinogen (Negative) Ur Leukocyte Esterase (Negative) Phenobarbital 18.1 (10-40) mcg/ml Ethyl Alcohol mg/dL (<10.0) mg/dl SARS-CoV-2, RNA, NAAT (NEGATIVE) 06/24/23 06/24/23 06/23/23 Range/Units 02:16 01:04 23:50 WBC (4.8-10.8) K/ul RBC (4.70-6.10) M/uL Hgb (14.0-18.0) g/dl Hct (42.0-52.0) % MCV (80.0-100.0) fL MCH (25.0-34.0) pg MCHC (32.0-36.0) g/dL RDW Std Deviation (36.4-46.3) fL RDW Coeff of Radha (11.5-14.5) % Plt Count (130-400) K/uL MPV (9.4-12.4) fL Immature Gran % (Auto) % Neut % (Auto) % Lymph % (Auto) % [place] % (Auto) % Eos % (Auto) % Baso % (Auto) % Neut # (Auto) (1.40-6.50) K/uL Lymph # (Auto) (1.2-3.4) K/uL [place] # (Auto) (0.11-0.59) K/uL Eos # (Auto) (0-0.50) K/uL Baso # (Auto) (0-0.2) K/uL Immature Gran # (Auto) (0.01-0.20) K/uL Sodium (136-145) mmol/L Potassium (3.5-5.1) mmol/L Chloride (98-107) mmol/L Carbon Dioxide (21-32) mmol/L Anion Gap (3-11) BUN (6-23) mg/dl Creatinine (0.6-1.4) mg/dl Est Cr Clr Drug Dosing ml/min Est GFR ( Amer) ml/min Est GFR (Non-Af Amer) ml/min BUN/Creatinine Ratio (10-20) Glucose (70-99(Fasting)) mg/dl Calcium (8.6-10.3) mg/dl Magnesium (1.7-2.4) mg/dl Total Bilirubin (0.2-1.0) mg/dl AST (13-39) U/L ALT (7-52) U/L Alkaline Phosphatase (34-104) U/L Total Protein (6.0-8.3) gm/dl Albumin (3.4-5.0) gm/dl Globulin (2.5-4.0) gm/dl Albumin/Globulin Ratio (0.9-2) Triglycerides (0-150) mg/dl Lipase (11-82) U/L Urine Color Yellow Urine Appearance Clear (Clear) Urine pH >= 9.0 H (4.5-7.5) Ur Specific [place] 1.010 (1.000-1.030) Urine Protein Negative (Negative) Urine Glucose (UA) Negative (Negative) Urine Ketones Trace H (Negative) Urine Blood Negative (Negative) Urine Nitrite Negative (Negative) Urine Bilirubin Negative (Negative) Urine Urobilinogen Negative (Negative) Ur Leukocyte Esterase Negative (Negative) Phenobarbital (10-40) mcg/ml Ethyl Alcohol mg/dL < 10.0 (<10.0) mg/dl SARS-CoV-2, RNA, NAAT NEGATIVE (NEGATIVE) 04/03/23 04/03/23 Range/Units 22:30 22:30 WBC 11.31 H (4.8-10.8) K/ul RBC 4.77 (4.70-6.10) M/uL Hgb 13.9 L (14.0-18.0) g/dl Hct 40.6 L (42.0-52.0) % MCV 85.1 (80.0-100.0) fL MCH 29.1 (25.0-34.0) pg MCHC 34.2 (32.0-36.0) g/dL RDW Std Deviation 43.5 (36.4-46.3) fL RDW Coeff of Radha 14.1 (11.5-14.5) % Plt Count 241 (130-400) K/uL MPV 9.1 L (9.4-12.4) fL Immature Gran % (Auto) 0.4 % Neut % (Auto) 76.2 % Lymph % (Auto) 11.3 % [place] % (Auto) 10.1 % Eos % (Auto) 1.8 % Baso % (Auto) 0.2 % Neut # (Auto) 8.62 H (1.40-6.50) K/uL Lymph # (Auto) 1.28 (1.2-3.4) K/uL [place] # (Auto) 1.14 H (0.11-0.59) K/uL Eos # (Auto) 0.20 (0-0.50) K/uL Baso # (Auto) 0.02 (0-0.2) K/uL Immature Gran # (Auto) 0.05 (0.01-0.20) K/uL Sodium 133 L (136-145) mmol/L Potassium 3.9 (3.5-5.1) mmol/L Chloride 100 (98-107) mmol/L Carbon Dioxide 26 (21-32) mmol/L Anion Gap 7 (3-11) BUN 13 (6-23) mg/dl Creatinine 0.69 (0.6-1.4) mg/dl Est Cr Clr Drug Dosing 87.5 ml/min Est GFR ( Amer) 101.0 ml/min Est GFR (Non-Af Amer) 87.2 ml/min BUN/Creatinine Ratio 18.8 (10-20) Glucose 126 H (70-99(Fasting)) mg/dl Calcium 8.3 L (8.6-10.3) mg/dl Magnesium 1.9 (1.7-2.4) mg/dl Total Bilirubin 0.5 (0.2-1.0) mg/dl AST 16 (13-39) U/L ALT 13 (7-52) U/L Alkaline Phosphatase 78 (34-104) U/L Total Protein 6.4 (6.0-8.3) gm/dl Albumin 3.8 (3.4-5.0) gm/dl Globulin 2.6 (2.5-4.0) gm/dl Albumin/Globulin Ratio 1.5 (0.9-2) Triglycerides (0-150) mg/dl Lipase 90 H (11-82) U/L Urine Color Urine Appearance (Clear) Urine pH (4.5-7.5) Ur Specific [place] (1.000-1.030) Urine Protein (Negative) Urine Glucose (UA) (Negative) Urine Ketones (Negative) Urine Blood (Negative) Urine Nitrite (Negative) Urine Bilirubin (Negative) Urine Urobilinogen (Negative) Ur Leukocyte Esterase (Negative) Phenobarbital (10-40) mcg/ml Ethyl Alcohol mg/dL (<10.0) mg/dl SARS-CoV-2, RNA, NAAT (NEGATIVE) Diagnostic Findings Abdomen/Pelvis CT 04/03/23 23:12 Exam(s): CT ABDOMEN + PELVIS Without Contrast EXAM: CT Abdomen and Pelvis Without Intravenous Contrast CLINICAL HISTORY: Reason for exam: LLQ abd pain. TECHNIQUE: Axial computed tomography images of the abdomen and pelvis without intravenous contrast. CTDI is 23.07 mGy and DLP is 1248.53 mGy-cm. Automated exposure control was utilized for the study. A dose lowering technique was utilized adhering to the principles of ALARA. COMPARISON: No relevant prior studies available. FINDINGS: Lung bases: Unremarkable. No mass. No consolidation. ABDOMEN: Liver: Unremarkable. Gallbladder and bile ducts: Unremarkable. No calcified stones. No ductal dilation. Pancreas: There is some stranding adjacent to the pancreatic tail (image 30 series 2). No ductal dilation. Spleen: Unremarkable. No splenomegaly. Adrenals: Unremarkable. No mass. Kidneys and ureters: There is a punctate nonobstructing left midpole intrarenal calculus. There is bilateral renal atrophy. There is a simple appearing right renal cyst. Stomach and bowel: There is scattered colonic diverticula without CT evidence for active diverticulitis. No obstruction. PELVIS: Appendix: No findings to suggest acute appendicitis. Bladder: Unremarkable. No stones. Reproductive: Unremarkable as visualized. ABDOMEN and PELVIS: Intraperitoneal space: Unremarkable. No free air. No significant fluid collection. 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 No acute fracture. No dislocation. Soft tissues: Unremarkable. Vasculature: There is diffuse atherosclerotic calcification of the aorta and its major branch vessels. No abdominal aortic aneurysm. Lymph nodes: Unremarkable. No enlarged lymph nodes. IMPRESSION: Peripancreatic stranding, please correlate with any concern for acute pancreatitis. Scattered colonic diverticula without CT evidence for active diverticulitis. Left-sided intrarenal calculus without hydronephrosis or distal ureteral calculus identified. Electronically signed by: Hasmukh Amaya MD 04/04/23 00:08 AM Chest X-Ray 04/04/23 01:03 XR chest 1V portable CLINICAL HISTORY: hyponatremia TECHNIQUE: Single frontal radiograph of the chest was obtained. Comparison: Comparison is made to chest radiograph 06/26/2022 FINDINGS: No lines and tubes are seen. Calcified aortic knob is seen. The lungs are clear. No evidence of pleural effusion or pneumothorax. IMPRESSION: No acute chest disease. ACT 112: Negative or not required by law. Electronically signed by: Jesse Stewart M.D. 04/04/2023 9:35 AM Gallbladder Ultrasound 04/04/23 02:29 Exam(s): US GALLBLADDER EXAM: US Abdomen Limited, Gallbladder CLINICAL HISTORY: Reason for exam: abd pain ro gallstones. TECHNIQUE: Real-time ultrasound of the right upper quadrant with image documentation. COMPARISON: No relevant prior studies available. FINDINGS: Liver is of heterogeneous echotexture consistent with fatty infiltration of same. Gallbladder: Unremarkable. No gallstones. Common bile duct: Unremarkable as visualized. No stones. No dilation. Pancreas: Unremarkable as visualized. IMPRESSION: No acute intra-abdominal pathology. Electronically signed by: Ayan Elliott MD 04/04/23 06:16 AM
--- NOTE | 2023-04-04 14:01 | Hospitalist Progress Note ---
Date of Service April 04, 2023 Assessment & Plan (1) Pancreatitis: Plan: Abdominal pain since last without nausea and or vomiting CT of the abdominal pelvis suggestive of acute pancreatitis. No elevation of the lipase Still complains moderate pain in the abdomen Ultrasound did not show any stones in the bile duct and/or gallbladder Appreciate GI input and recommendation We will start clears if the pain is tolerable and continue IV fluid and symptomatic management Otherwise remains stable Other significant medical conditions noted below remained stable: HTN, slight elevated secondary to discomfort Hyperlipidemia, on statin Rx hx PSVT,valvular heart disease (mild /AR/PA) COPD, 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 Lovenox subcu Full code If tolerating food without any significant abdominal pain can be discharged tomorrow afternoon Admission and Anticipated Discharge Date Admission Date: April 04, 2023 Subjective 04/04/2023 The patient was seen and examined in medical floor He has been complaining of abdominal discomfort and pain with bloating since last Denies any nausea and or vomiting or any diarrhea Noted to have peripancreatic fluid on CAT scan of the abdomen pelvis without any elevation of the enzymes Remains stable without any worsening of the symptoms Remains n.p.o. as of now Review of Systems Review of Systems: All systems reviewed and are unremarkable except as noted below Gastrointestinal: + abdominal pain and + bloating; no nausea Physical Exam Physical Exam: Lying in bed with minimal discomfort secondary to abdominal pain Constitutional: well developed, well nourished, + ill appearing and average body habitus Eyes: PERRL, conjunctivae normal, anicteric sclerae ENMT: external ear and nose normal, oropharynx normal Neck: trachea midline, no thyromegaly Respiratory: no respiratory distress Auscultation: lungs clear to auscultation bilaterally Cardiovascular: Rate/Rhythm: regular rate and regular rhythm; not tachycardic Heart Sounds: normal S1 and normal S2; no murmur Extremities: no edema Gastrointestinal (Abdomen): Inspection/Auscultation: + abdomen distended and normal bowel sounds Percussion/Palpation: + abdomen tender (Minimally tender in the epigastrium) and abdomen soft Musculoskeletal: No acute arthritis involving any of the joint Neurologic: Alert, awake and oriented x3. No focal sensory or no motor deficit appreciated Psychiatric: A+Ox3, euthymic affect Lymphatic: no cervical or axillary lymphadenopathy Results & Data Results & Data Vital Signs (Past 12 Hours) Vital Signs Temp Pulse Pulse Pulse Resp BP BP 04/04/23 08:28 37.0 C 88 18 134/66 04/04/23 05:24 36.6 C 81 151/75 H 04/04/23 04:26 77 16 123/76 04/04/23 03:00 85 16 134/66 04/04/23 03:00 85 04/04/23 02:00 86 18 150/78 H Pulse Ox O2 Del Method 04/04/23 08:28 94 Room Air 04/04/23 05:24 95 Room Air 04/04/23 04:26 94 Room Air 04/04/23 03:00 93 Room Air 04/04/23 03:00 04/04/23 02:00 94 Room Air Laboratory Results Short CBC 04/03/23 04/04/23 Range/Units 22:30 06:21 WBC 11.31 H 11.38 H (4.8-10.8) K/ul Hgb 13.9 L 13.2 L (14.0-18.0) g/dl Hct 40.6 L 39.0 L (42.0-52.0) % Plt Count 241 195 (130-400) K/uL BMP 04/03/23 04/04/23 22:30 06:21 Sodium 133 L 135 L Potassium 3.9 4.2 Chloride 100 103 Carbon Dioxide 26 26 BUN 13 11 Creatinine 0.69 0.76 Glucose 126 H 114 H Calcium 8.3 L 8.1 L Liver Function 04/03/23 04/04/23 Range/Units 22:30 06:21 Total Bilirubin 0.5 0.4 (0.2-1.0) mg/dl AST 16 17 (13-39) U/L ALT 13 11 (7-52) U/L Alkaline Phosphatase 78 71 (34-104) U/L Albumin 3.8 3.5 (3.4-5.0) gm/dl Urine 04/03/23 Range/Units 23:50 Urine Color Yellow Urine Appearance Clear (Clear) Urine pH >= 9.0 H (4.5-7.5) Ur Specific [place] 1.010 (1.000-1.030) Urine Protein Negative (Negative) Urine Glucose (UA) Negative (Negative) Medications Administered Current Inpatient Medications Acetaminophen (Acetaminophen 325 Mg Tab) 325 mg PO Q6H PRN PRN Reason: Mild Pain/Fever Stop: 05/04/23 02:33 Hydrocodone Bitart/Acetaminophen (Hydrocodone/Acetamophen 5/325mg Tab) 1 tab PO QID PRN PRN Reason: Pain Stop: 04/18/23 02:33 Amlodipine Besylate (Amlodipine Besylate 5 Mg Tab) 2.5 mg PO QAM [facility] Stop: 05/04/23 08:59 Last Admin: 04/04/23 09:40 Dose: 2.5 mg Enoxaparin Sodium (Enoxaparin Inj 40 Mg/0.4 Ml Syr) 40 mg SQ QAM [facility] Stop: 05/04/23 08:59 Last Admin: 04/04/23 08:35 Dose: 40 mg Fluticasone Propionate (Fluticasone Propionate Na Spr 16 Gm Btl) 1 sprays IRVIN DAILY [facility] Stop: 05/04/23 08:59 Last Admin: 04/04/23 08:39 Dose: Not Given Hydromorphone HCl (Hydromorphone Inj 0.5 Mg/0.5 Ml Syr) 0.5 mg IV Q3H PRN PRN Reason: Pain Stop: 04/18/23 02:33 Promethazine HCl 6.25 mg/ (Sodium Chloride) 50.25 mls @ 201 mls/hr IV Q6H PRN PRN Reason: Nausea And Vomiting Stop: 05/04/23 02:33 Lactated Ringer's (Lr) 1,000 mls @ 150 mls/hr IV .Q6H40M [facility] Stop: 04/05/23 05:59 Last Admin: 04/04/23 09:03 Dose: 150 mls/hr Multivitamins (Multivitamin Tab) 1 tab PO QPM [facility] Stop: 05/04/23 20:59 Phenobarbital (Phenobarbital 30 Mg Tab) 60 mg PO BID [facility] Stop: 05/04/23 08:59 Last Admin: 04/04/23 09:40 Dose: 60 mg Pravastatin Sodium (Pravastatin Sod 20 Mg Tab) 20 mg PO DAILY [facility] Stop: 05/04/23 08:59 Last Admin: 04/04/23 08:33 Dose: 20 mg Prednisone (Prednisone 1 Mg Tab) 2 mg PO DAILY [facility] Stop: 05/04/23 08:59 Last Admin: 04/04/23 08:33 Dose: 2 mg Umeclidinium [place] (Umeclidinium [place] 62.5mcg/Blister 7 Puffs/Inhaler) 1 puffs INH QAM [facility] Stop: 05/04/23 08:59 Last Admin: 04/04/23 09:40 Dose: 1 puffs
[2023-04-04] MEDS ORDERED: MULTIVITAMIN TAB PO SCH (21:00)
[2023-04-05] MEDS: LACTATED RINGER'S 1,000 ML IV SCH (04:31)
[2023-04-05 06:47] LABS: Basophils # (auto) 0.03 K/uL (0-0.2); Basophils % (auto) 0.3 %; Eosinophils # (auto) 0.27 K/uL (0-0.50); Eosinophils % (auto) 2.6 %; Hematocrit (blood only) 35.7 % (42.0-52.0); Hemoglobin 12.5 g/dl (14.0-18.0); Immature Granulocytes # (auto) 0.03 K/uL (0.01-0.20); Immature Granulocytes % (auto) 0.3 %; Lymphocytes # (auto) 1.81 K/uL (1.2-3.4); Lymphocytes % (auto) 17.3 %; Mean Corpuscular Hemoglobin 29.6 pg (25.0-34.0); Mean Corpuscular Volume 84.6 fL (80.0-100.0); Mean Platelet Volume 9.2 fL (9.4-12.4); Monocytes # (auto) 1.12 K/uL (0.11-0.59); Monocytes % (auto) 10.7 %; Neutrophils % (auto) 68.8 %; Platelet Count 225 K/uL (130-400); RDW Coefficient of Variation 14.4 % (11.5-14.5); RDW Standard Deviation 44.2 fL (36.4-46.3); Red Blood Count 4.22 M/uL (4.70-6.10); White Blood Count 10.46 K/ul (4.8-10.8)
[2023-04-05 07:00] LABS: Albumin Globulin Ratio 1.2 (0.9-2); Albumin Level 3.2 gm/dl (3.4-5.0); BUN Creatinine Ratio 9.9 (10-20); Bilirubin,Total 0.5 mg/dl (0.2-1.0); Calcium 8.2 mg/dl (8.6-10.3); Creatinine Clr Calc Pharmacy 74.5 ml/min; Est GFR (African American) 94.6 ml/min; Est GFR (Non-African American) 81.6 ml/min; Globulin 2.7 gm/dl (2.5-4.0); Magnesium 1.8 mg/dl (1.7-2.4); Phosphorus 2.5 mg/dl (2.5-4.9); Potassium 3.9 mmol/L (3.5-5.1); Total Protein 5.9 gm/dl (6.0-8.3)
[2023-04-05] MEDS: amLODIPine BESYLATE 5 MG TAB PO SCH (08:23)
[2023-04-05] MEDS: PHENobarbitaL 30 MG TAB PO SCH (08:27)
[2023-04-05] MEDS: PRAVASTATIN SOD 20 MG TAB PO SCH (08:37)
[2023-04-05] MEDS: ENOXAPARIN INJ 40 MG/0.4 ML SYR SQ SCH (08:37)
[2023-04-05] MEDS: FLUTICASONE PROPIONATE NA SPR 16 GM BTL NAE SCH (08:37)
[2023-04-05] MEDS: UMECLIDINIUM BROMIDE 62.5MCG/BLISTER 7 PUFFS/INHALER INH SCH (08:38)
[2023-04-05] MEDS: predniSONE 1 MG TAB PO SCH (08:38)
--- NOTE | 2023-04-05 08:59 | Gastroenterology Progress Note ---
Date of Service April 05, 2023 Assessment & Plan (1) Pancreatitis: Plan: He seems to be back to normal. Will advance diet. Okay with me to discharge Admission and Anticipated Discharge Date Admission Date: April 04, 2023 Subjective Feeling much better. Pain is a 1 out of 10. Tolerating clear liquids. Wants to go home Physical Exam Physical Exam: He looks well Gastrointestinal (Abdomen): normal bowel sounds, soft, nontender, no hepatosplenomegaly Results & Data Vital Signs (Past 12 Hours) Vital Signs Temp Pulse Resp BP Pulse Ox O2 Del Method 04/05/23 07:27 36.8 C 77 16 154/73 H 96 Room Air
--- NOTE | 2023-04-05 10:37 | Hospitalist Progress Note ---
Date of Service April 05, 2023 Assessment & Plan (1) Pancreatitis: Plan: Abdominal pain since last without nausea and or vomiting CT of the abdominal pelvis suggestive of acute pancreatitis. No elevation of the lipase Still complains moderate pain in the abdomen Ultrasound did not show any stones in the bile duct and/or gallbladder Appreciate GI input and recommendation We will start clears if the pain is tolerable and continue IV fluid and symptomatic management Otherwise remains stable Has been tolerating regular diet without any significant symptoms Her labs remain unremarkable and remains hemodynamically stable to be discharged Has been ambulating without any difficulties Other significant medical conditions noted below remained stable: HTN, slight elevated secondary to discomfort Hyperlipidemia, on statin Rx hx PSVT,valvular heart disease (mild /[place]) COPD, 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 Lovenox subcu Full code Discharge home this morning Admission and Anticipated Discharge Date Admission Date: April 04, 2023 Subjective 04/04/2023 The patient was seen and examined in medical floor He has been complaining of abdominal discomfort and pain with bloating since last Denies any nausea and or vomiting or any diarrhea Noted to have peripancreatic fluid on CAT scan of the abdomen pelvis without any elevation of the enzymes Remains stable without any worsening of the symptoms Remains n.p.o. as of now 04/05/2023 The patient was seen and examined in medical floor He has been tolerating regular diet Minimal discomfort in the abdomen without any nausea, vomiting or diarrhea He has been ambulating without any difficulties Review of Systems Review of Systems: All systems reviewed and are unremarkable except as noted below Gastrointestinal: + abdominal pain and + bloating; no nausea Physical Exam Physical Exam: Lying in bed with minimal discomfort secondary to abdominal pain Constitutional: well developed, well nourished, + ill appearing and average body habitus Eyes: PERRL, conjunctivae normal, anicteric sclerae ENMT: external ear and nose normal, oropharynx normal Neck: trachea midline, no thyromegaly Respiratory: no respiratory distress Auscultation: lungs clear to auscultation bilaterally Cardiovascular: Rate/Rhythm: regular rate and regular rhythm; not tachycardic Heart Sounds: normal S1 and normal S2; no murmur Extremities: no edema Gastrointestinal (Abdomen): Inspection/Auscultation: normal bowel sounds; abdomen not distended Percussion/Palpation: abdomen soft; abdomen nontender (Minimally tender in the epigastrium) Psychiatric: A+Ox3, euthymic affect Lymphatic: no cervical or axillary lymphadenopathy Results & Data Results & Data Vital Signs (Past 12 Hours) Vital Signs Temp Pulse Resp BP Pulse Ox O2 Del Method 04/05/23 07:27 36.8 C 77 16 154/73 H 96 Room Air Laboratory Results Short CBC 04/05/23 Range/Units 06:19 WBC 10.46 (4.8-10.8) K/ul Hgb 12.5 L (14.0-18.0) g/dl Hct 35.7 L (42.0-52.0) % Plt Count 225 (130-400) K/uL BMP 04/05/23 06:19 Sodium 137 Potassium 3.9 Chloride 103 Carbon Dioxide 27 BUN 8 Creatinine 0.81 Glucose 106 H Calcium 8.2 L Liver Function 04/05/23 Range/Units 06:19 Total Bilirubin 0.5 (0.2-1.0) mg/dl AST 13 (13-39) U/L ALT 10 (7-52) U/L Alkaline Phosphatase 62 (34-104) U/L Albumin 3.2 L (3.4-5.0) gm/dl Medications Administered Current Inpatient Medications Acetaminophen (Acetaminophen 325 Mg Tab) 325 mg PO Q6H PRN PRN Reason: Mild Pain/Fever Stop: 05/04/23 02:33 Hydrocodone Bitart/Acetaminophen (Hydrocodone/Acetamophen 5/325mg Tab) 1 tab PO QID PRN PRN Reason: Pain Stop: 04/18/23 02:33 Amlodipine Besylate (Amlodipine Besylate 5 Mg Tab) 2.5 mg PO QAM PARVEZ Stop: 05/04/23 08:59 Last Admin: 04/05/23 08:23 Dose: 2.5 mg Enoxaparin Sodium (Enoxaparin Inj 40 Mg/0.4 Ml Syr) 40 mg SQ QAM PARVEZ Stop: 05/04/23 08:59 Last Admin: 04/05/23 08:37 Dose: Not Given Fluticasone Propionate (Fluticasone Propionate Na Spr 16 Gm Btl) 1 sprays IRVIN DAILY [facility] Stop: 05/04/23 08:59 Last Admin: 04/05/23 08:37 Dose: Not Given Hydromorphone HCl (Hydromorphone Inj 0.5 Mg/0.5 Ml Syr) 0.5 mg IV Q3H PRN PRN Reason: Pain Stop: 04/18/23 02:33 Promethazine HCl 6.25 mg/ (Sodium Chloride) 50.25 mls @ 201 mls/hr IV Q6H PRN PRN Reason: Nausea And Vomiting Stop: 05/04/23 02:33 Multivitamins (Multivitamin Tab) 1 tab PO QPM PARVEZ Stop: 05/04/23 20:59 Last Admin: 04/04/23 20:25 Dose: 1 tab Phenobarbital (Phenobarbital 30 Mg Tab) 60 mg PO BID [facility] Stop: 05/04/23 08:59 Last Admin: 04/05/23 08:27 Dose: 60 mg Pravastatin Sodium (Pravastatin Sod 20 Mg Tab) 20 mg PO DAILY PARVEZ Stop: 05/04/23 08:59 Last Admin: 04/05/23 08:37 Dose: Not Given Prednisone (Prednisone 1 Mg Tab) 2 mg PO DAILY [facility] Stop: 05/04/23 08:59 Last Admin: 04/05/23 08:38 Dose: Not Given Umeclidinium [place] (Umeclidinium [place] 62.5mcg/Blister 7 Puffs/Inhaler) 1 puffs INH QAM [facility] Stop: 05/04/23 08:59 Last Admin: 04/05/23 08:38 Dose: Not Given
--- NOTE | 2023-04-05 11:37 | Communication Note ---
Date of Service: April 05, 2023 By CMS guidelines, a determination that the admission or continued stay is not medically necessary has been made by a member of the Utilization Review commi ttee and a physician for this hospital stay. Therefore, a Code 44 will be completed and the inpatient admission will be changed to outpatient. Vee Perez DO
--- NOTE | 2023-04-05 16:21 | Discharge Summary ---
Date of Service April 05, 2023 Admission HPI Per Admitting Provider History obtained from patient and records. Medical history significant for HTN, hyperlipidemia, PSVT, valvular heart disease (mild /[place]), COPD, RAJNI on CPAP, BPH, PMR on chronic steroid Rx, seizure disorder, past tobacco abuse. Last confinement June 2022 for COPD exacerbation. 2 nights ago, patient experienced left-sided abdominal pain, gradually worsening. No actual chest pain, no unusual shortness of breath. Symptoms noted following a meal of soup and hot dog. No fever, no chills. Last drink was 2 nights ago, Denies EtOH abuse. Medical Historyas above Surgical History : Skin biopsy, cystoscopy, back surgery, TURP Family History : Colon cancer, prostate cancer Personal/Social history : Past tobacco abuse, occasional EtOH intake, retired senior mechanical engineer Admission Exam Per Admitting Provider Physical Exam: GENERAL: Slightly uncomfortable, slightly anxious, no respiratory distress SKIN: Normal color, warm HEENT: Bespectacled, pink palpebral conjunctivae, no ptosis, dry buccal mucosa NECK : Supple, no tenderness CHEST : Decreased breath sounds, no tenderness HEART : RRR, no obvious murmurs ABDOMEN: no distention, left-sided abdominal tenderness EXTREMITIES : No LE swelling/tenderness, no other conspicuous deformities noted NEUROLOGIC : Coherent, no facial asymmetry, no other gross focality Principal Diagnosis Acute Pancreatitis Discharge Exam Lying in bed with minimal discomfort secondary to abdominal pain Constitutional well developed, well nourished, + ill appearing and average body habitus Eyes PERRL, conjunctivae normal, anicteric sclerae ENMT external ear and nose normal, oropharynx normal Neck trachea midline, no thyromegaly Respiratory no respiratory distress Auscultation: lungs clear to auscultation bilaterally Cardiovascular Rate/Rhythm: regular rate and regular rhythm; not tachycardic Heart Sounds: normal S1 and normal S2; no murmur Extremities: no edema Gastrointestinal (Abdomen) Inspection/Auscultation: normal bowel sounds; abdomen not distended Percussion/Palpation: abdomen soft; abdomen nontender (Minimally tender in the epigastrium) Psychiatric A+Ox3, euthymic affect Lymphatic no cervical or axillary lymphadenopathy Discharge Data Allergies Allergy/AdvReac Type Severity Reaction Status Date / Time lamotrigine Allergy Unknown pruritus, Verified 04/04/23 01:53 rash oxycodone AdvReac Unknown "strange" Verified 04/04/23 01:53 feeling Consultations 04/04/23 02:34 Consult Gastroenterology Routine Ordered Studies 04/03/23 23:12 CT Abd and Pelvis [CT abd pelvis wo con] Stat 04/04/23 02:29 US gallbladder Stat Hospital Course (1) Pancreatitis: Abdominal pain since last without nausea and or vomiting CT of the abdominal pelvis suggestive of acute pancreatitis. No elevation of the lipase Still complains moderate pain in the abdomen Ultrasound did not show any stones in the bile duct and/or gallbladder Appreciate GI input and recommendation We will start clears if the pain is tolerable and continue IV fluid and symptomatic management Otherwise remains stable Has been tolerating regular diet without any significant symptoms Her labs remain unremarkable and remains hemodynamically stable to be discharged Has been ambulating without any difficulties Other significant medical conditions noted below remained stable: HTN, slight elevated secondary to discomfort Hyperlipidemia, on statin Rx hx PSVT,valvular heart disease (mild /AR/[place]) COPD, 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 Lovenox subcu Full code Discharge home this morning Total Time Total Time Spent Total Time Spent (In Minutes): 35 minutes Discharge Plan Discharge Items Patient Disposition: Home - Self-Care Reason For Visit: PANCREATITIS Discharge Diagnosis: Acute pancreatitis Condition on Discharge: Good Activity: Resume your previous activity Non-emergency contact: Primary Care Provider Call non-emergency contact if: you have any medication questions and your symptoms worsen Follow-up/Referrals: Travis Acuna MD [Primary Care Provider] - (Your doctor's office will give you a call with an appointment within 7 days) Diet: Heart Healthy Addtl Attending Provider Instructions: Please take precautions to avoid falls Take your medications as advised Advised to have small meals and low-fat diet Please give appointment with your healthcare providers Pending Studies at Discharge: No Stand-Alone Forms: My [employer], Smoking Cessation Medications and DC Order Prescriptions: Continued multivitamin Tablet 1 tab PO QPM phenobarbital 60 mg Tablet 60 mg PO BID ascorbic acid (vitamin C) 500 mg Capsule 500 mg PO QAM Spiriva with HandiHaler 18 mcg Capsule, W/Inhalation Device 1 cap INHALATION QAM valacyclovir 1 gram Tablet 1,000 mg PO UD PRN (Reason: Cold Sores) Calcium 600 + D(3) 600 mg calcium- 200 unit Capsule 1 cap PO DAILY glucosamine-chondroitin 500-400 mg Tablet 1 tab PO BID pravastatin 20 mg tablet 20 mg PO DAILY prednisone 1 mg tablet 2 mg PO DAILY alendronate 70 mg Tablet 70 mg PO WK Rx Instructions: TAKE THIS MED EVERY THURSDAY albuterol sulfate [ProAir HFA] 90 mcg/actuation HFA aerosol inhaler 2 inh inhalation QID PRN (Reason: shortness of breath or wheezing) Qty: 8.5 0RF ipratropium-albuterol 0.5 mg-3 mg(2.5 mg base)/3 mL Solution For Nebulization 3 ml NEB QID PRN (Reason: shortness of breath or wheezing) Qty: 90 0RF naproxen sodium [Aleve] 220 mg Tablet 440 mg PO DAILY PRN (Reason: Pain) magnesium oxide 420 mg Tablet 420 mg PO DAILY amlodipine 2.5 mg tablet 2.5 mg PO QAM benzonatate 100 mg capsule 100 mg PO TID PRN (Reason: Cough) fluticasone propionate [Flonase Allergy Relief] 50 mcg/actuation [place],Suspension 1 spray INTRANASAL DAILY Rx Instructions: administer into each nostril Guaifenesin 200mg Tab 200 mg PO TID PRN (Reason: Congestion) Discharge Orders: Discharge Order (Routine); Ordered 04/05/23 Ordered By: Blanca Raines/Other Patient Handouts: Understanding Pancreatitis Admission Data Admit Date/Time: 04/04/23 02:32 Attending Provider: Blanca Riggins Admit Provider: Rod Camacho Primary Care Provider: Travis Acuna Other Providers: Millie Browne ; Chad Sanchez ; Greta Wiseman ; Cherie Phillips ; Rita Lentz Janet R. ; Da Kang ; Macario Vargas ; Maria G Quintanilla ; Holly Sears ; Rajiv Hardwick ; Roselyn Alcala ; Leona Valladares ; Bre Mckee ; Yakelin Esquivel ; Dorota Orona ; Tom Abreu ; Clark Hernandez ; Susan Cohen ; Osvaldo Sesay Jr Other Interventions: Discharge Summary Assessment (RN) Last Done: 04/05/23 10:47
== END 2023-04-05 11:40 | disposition home or self-care (01) | DRG 439 ==
LOC: ED 21:32 → 3W 04-04 02:32